=== PATIENT | male | born 1955 | race Caucasian/White ===

== ENCOUNTER 2017-10-05 13:06 | Emergency (ER) | payer BC, MEDICARE ==
[~2017-10-05] VITALS: Ht 180.3 cm; Wt 96.2 kg
[~2017-10-05 13:06] MED LIST: ACHD5005 PO; ALPR1TAB2 PO; ASP81CT PO; CEPH500C PO; MPR22T TP; NEBI20TA2 PO; NFNEB10T PO; NTR.4SL SL; OLME1TAB30 PO; SULF1TAB38 PO; TELM1TAB3 PO; TELM40T PO
[2017-10-05 13:28] LABS: BASOPHILS # (AUTO) 0.1 10^3/uL (0.0-0.1); BASOPHILS % (AUTO) 1 % (0-10); EOSINOPHILS # (AUTO) 0.1 10^3/uL (0.0-0.3); EOSINOPHILS % (AUTO) 1 % (0-10); LYMPHOCYTES # (AUTO) 1.3 X 10^3 (1.0-4.0); LYMPHOCYTES % (AUTO) 13 % (12-44); MEAN CORPUSCULAR HEMOGLOBIN 30 PG (25-34); MEAN CORPUSCULAR HGB CONC 34 G/DL (32-36); MEAN CORPUSCULAR VOLUME 87 FL (80-99); MEAN PLATELET VOLUME 11.4 FL (7.4-10.4); MONOCYTES # (AUTO) 0.9 X 10^3 (0.0-1.0); MONOCYTES % (AUTO) 10 % (0-12); NEUTROPHILS # (AUTO) 7.5 X 10^3 (1.8-7.8); NEUTROPHILS % (AUTO) 76 % (42-75); PLATELET COUNT 175 10^3/uL (130-400); RED CELL DISTRIBUTION WIDTH 14.9 % (10.0-14.5); WHITE BLOOD COUNT 9.8 10^3/uL (4.3-11.0)
[2017-10-05 13:39] LABS: INR 1.1 (0.8-1.4); PROTHROMBIN TIME PATIENT 14.5 SEC (12.2-14.7)
[2017-10-05 13:47] LABS: ALANINE AMINOTRANSFERASE 23 U/L (0-55); ALBUMIN 3.9 GM/DL (3.2-4.5); ANION GAP 12 MMOL/L (5-14); ASPARTATE AMINO TRANSFERASE 17 U/L (5-34); BILIRUBIN,TOTAL 1.3 MG/DL (0.1-1.0); BLOOD UREA NITROGEN 17 MG/DL (7-18); BUN/CREATININE RATIO 16; CARBON DIOXIDE 20 MMOL/L (21-32); CHLORIDE 111 MMOL/L (98-107); CREATININE SERUM 1.09 MG/DL (0.60-1.30); GFR ESTIMATED > 60; GLUCOSE 121 MG/DL (70-105); MAGNESIUM 2.2 MG/DL (1.8-2.4); POTASSIUM 4.2 MMOL/L (3.6-5.0); SODIUM 143 MMOL/L (135-145); TOTAL PROTEIN 6.9 GM/DL (6.4-8.2)
--- NOTE | 2017-10-05 14:14 | Diagnostic Imaging Report ---
PA and lateral views of the chest. INDICATION: Shortness of breath. FINDINGS: There is iqqswwlh-dy-jkhdlz cardiomegaly. There is minimal pulmonary vascular congestion. There is right infrahilar mild consolidation seen as well. No effusion or pneumothorax. The mediastinum and becky appear unremarkable. IMPRESSION: Marked cardiomegaly with pulmonary vascular congestion. There is also mild right infrahilar infiltrate. Dictated by: Dictated on workstation # [id number]
[2017-10-05] MEDS ORDERED: FURO-125 PO (14:58)
[2017-10-05] MEDS ORDERED: RT-ALBUINH IH (14:58)
[2017-10-05] MEDS ORDERED: POTA10TA10 PO (14:58)
[2017-10-05] MEDS ORDERED: AZIT250T12 PO (14:58)
--- NOTE | 2017-10-05 14:58 | ED General ---
General Chief Complaint: Respiratory Problems Stated Complaint: CHEST PAIN Nursing Triage Note: PT HERE FROM [facility], [facility] [place] FOR ABOUT 3 DAYS, STATES CANNOT GET AIR AT NIGHT. DENIES C/P Nursing Sepsis Screen: No Definite Risk Source of Information: Patient Exam Limitations: No Limitations History of Present Illness Time Seen by Provider: 13:10 Initial Comments This 61-year-old gentleman presents to the emergency room with complaints of orthopnea for the past 3 days. Sleep is very much disrupted because of orthopnea. He also has had some lower extremity edema. He denies any chest pain, cough or fever. He does have a history of nonischemic cardiomyopathy. He had nonobstructive coronary arteries on a heart catheter in 2013. He has not been taking his beta fredy medication and he does not follow with a crew lead. Dr. Alejandro is his primary care provider. Patient denies any alcohol or tobacco use. Patient was seen at the urgent care clinic earlier today and was referred to the emergency room because of EKG changes. Allergies and Home Medications Allergies Coded Allergies: Penicillins (Verified Allergy, 05/01/13) Home Medications Albuterol Sulfate 1 Puff Puff, 1-4 PUFF IH Q4H PRN for WHEEZING, #1 1 PUFF = 90 MCG Prescribed by: FORTINO REVELES on 10/05/17 1458 Alprazolam 1 Mg Tablet, 1 MG PO HS, (Reported) Azithromycin 250 Mg Tablet, 250 MG PO UD, #6 TAKE 2 TABLETS ON DAY ONE THEN TAKE 1 TABLET DAILY FOR FOUR MORE DAYS Prescribed by: FORTINO REVELES on 10/05/17 1458 Furosemide 20 Mg Tablet, 20 MG PO DAILY, #7 Prescribed by: FORTINO REVELES on 10/05/17 1458 Olmesartan Med/Amlodipine/Hctz 1 Each Tablet, 1 EACH PO DAILY, (Reported) Potassium Chloride 10 Meq Tablet.er, 10 MEQ PO DAILY, #7 Take only if taking Lasix (furosemide) Prescribed by: FORTINO REVELES on 10/05/17 1458 Constitutional: no symptoms reported EENTM: no symptoms reported Respiratory: see HPI Cardiovascular: see HPI Gastrointestinal: no symptoms reported Genitourinary: no symptoms reported Musculoskeletal: no symptoms reported Skin: no symptoms reported Psychiatric/Neurological: No Symptoms Reported Hematologic/Lymphatic: No Symptoms Reported Past Pqcfolw-Mivxpg-Efxvbs Hx Patient Social History Alcohol Use: Past History Recreational Drug Use: No Smoking Status: Never a Smoker Type Used: Smokeless Tobacco Recent Foreign Travel: No Contact w/Someone Who Travel: No Recent Infectious Disease Expo: No Recent Hopitalizations: No Physical Abuse: No Sexual Abuse: No Immunizations Up To Date Tetanus Booster (TDap): Unknown Seasonal Allergies Seasonal Allergies: No Surgeries History of Surgeries: Yes (COLONOSCOPY, CARDIAC CATH 12/2013) Surgeries: Abdominal, Cardiac Respiratory History of Respiratory Disorde: No Cardiovascular History of Cardiac Disorders: Yes (EXTREME NON-COMPLIANCE WITH MEDICATION) Cardiac Disorders: Cardiomyopathy (nonischemic cardiomyopathy), Hypertension Neurological History of Neurological Disord: No Reproductive System Hx Reproductive Disorders: No Sexually Transmitted Disease: No Gastrointestinal History of Gastrointestinal Di: Yes (DIVERTICULAR DISEASE FOUND ON SCREENING COLONOSCOPY) Gastrointestinal Disorders: Diverticulosis Musculoskeletal History of Musculoskeletal Dis: No Endocrine History of Endocrine Disorders: No Cancer History of Cancer: No Psychosocial History of Psychiatric Problem: No Suicide Risk Score: 0 Integumentary History of Skin or Integumenta: No Blood Transfusions History of Blood Disorders: No Physical Exam Vital Signs Vital Sign - Last 12Hours 10/05/17 13:10 Temp 97.2 Pulse 86 Resp 13 B/P (MAP) 152/108 Pulse Ox 96 Capillary Refill : Less Than 3 Seconds General Appearance: No Apparent Distress, WD/WN HEENT: PERRL/EOMI, Normal ENT Inspection Neck: Normal Inspection, No JVD Respiratory: Lungs Clear, Normal Breath Sounds, No Accessory Muscle Use, No Respiratory Distress Cardiovascular: Regular Rate, Rhythm, No Murmur, Other (mild lower extremity edema) Gastrointestinal: Normal Bowel Sounds, Non Tender, Soft Extremity: Non Tender, Swelling Neurologic/Psychiatric: Alert, Oriented x3, No Motor/Sensory Deficits, Normal Mood/Affect, computer aided design drafter II-XII Norm as Tested Skin: Normal Color, Warm/Dry Progress/Results/Core Measures Suspected Sepsis Recent Fever Within 48 Hours: No Infection Criteria Present: None New/Unexplained Altered Menta: No Sepsis Screen: No Definite Risk Sepsis Diagnosis: SIRS Temperature:97.2 Pulse: 86 Respiratory Rate: 13 Laboratory Tests 10/05/17 13:15: White Blood Count 9.8 Blood Pressure 152 /108 Mean: 123 Laboratory Tests 10/05/17 13:15: Creatinine 1.09, INR Comment 1.1, Platelet Count 175, Total Bilirubin 1.3H Results/Orders Lab Results Laboratory Tests Test 10/05/17 13:15 Range/Units White Blood Count 9.8 4.3-11.0 10^3/uL Red Blood Count 5.10 4.35-5.85 10^6/uL Hemoglobin 15.1 13.3-17.7 G/DL Hematocrit 44 40-54 % Mean Corpuscular Volume 87 80-99 FL Mean Corpuscular Hemoglobin 30 25-34 PG Mean Corpuscular Hemoglobin Concent 34 32-36 G/DL Red Cell Distribution Width 14.9 H 10.0-14.5 % Platelet Count 175 130-400 10^3/uL Mean Platelet Volume 11.4 H 7.4-10.4 FL Neutrophils (%) (Auto) 76 H 42-75 % Lymphocytes (%) (Auto) 13 12-44 % Monocytes (%) (Auto) 10 0-12 % Eosinophils (%) (Auto) 1 0-10 % Basophils (%) (Auto) 1 0-10 % Neutrophils # (Auto) 7.5 1.8-7.8 X 10^3 Lymphocytes # (Auto) 1.3 1.0-4.0 X 10^3 Monocytes # (Auto) 0.9 0.0-1.0 X 10^3 Eosinophils # (Auto) 0.1 0.0-0.3 10^3/uL Basophils # (Auto) 0.1 0.0-0.1 10^3/uL Prothrombin Time 14.5 12.2-14.7 SEC INR Comment 1.1 0.8-1.4 Activated Partial Thromboplast Time 30 24-35 SEC Sodium Level 143 135-145 MMOL/L Potassium Level 4.2 3.6-5.0 MMOL/L Chloride Level 111 H 98-107 MMOL/L Carbon Dioxide Level 20 L 21-32 MMOL/L Anion Gap 12 5-14 MMOL/L Blood Urea Nitrogen 17 7-18 MG/DL Creatinine 1.09 0.60-1.30 MG/DL Estimat Glomerular Filtration Rate > 60 BUN/Creatinine Ratio 16 Glucose Level 121 H 70-105 MG/DL Calcium Level 9.0 8.5-10.1 MG/DL Magnesium Level 2.2 1.8-2.4 MG/DL Total Bilirubin 1.3 H 0.1-1.0 MG/DL Aspartate Amino Transf (AST/SGOT) 17 5-34 U/L Alanine Aminotransferase (ALT/SGPT) 23 0-55 U/L Alkaline Phosphatase 95 40-136 U/L Myoglobin 57.0 10.0-92.0 NG/ML Troponin I < 0.30 <0.30 NG/ML B-Type Natriuretic Peptide 1961.8 H <100.0 PG/ML Total Protein 6.9 6.4-8.2 GM/DL Albumin 3.9 3.2-4.5 GM/DL My Orders Orders - FORTINO KRAFT MD Cbc With Automated Diff (10/05/17 13:19) Magnesium (10/05/17 13:19) Ekg Tracing (10/05/17 13:19) Cardiac Profile 1 (10/05/17 13:19) Comprehensive Metabolic Panel (10/05/17 13:19) Myoglobin Serum (10/05/17 13:19) Protime With Inr (10/05/17 13:19) Partial Thromboplastin Time (10/05/17 13:19) O2 (10/05/17 13:19) Monitor-Rhythm Ecg Trace Only (10/05/17 13:19) Saline Lock/Iv-Start (10/05/17 13:19) BNP (10/05/17 13:19) Chest Pa/Lat (2 View) (10/05/17 13:19) Furosemide Injection (Lasix Injection) (10/05/17 15:00) Potassium Chloride (Tablet) (Klor Con Ta (10/05/17 15:00) Medications Given in ED Current Medications Medications Dose Ordered Sig/Aman Route Start Time Stop Time Status Last Admin Dose Admin Furosemide 20 mg ONCE ONCE IVP 10/05/17 15:00 10/05/17 15:01 DC 10/05/17 15:11 20 MG Potassium Chloride 20 meq ONCE ONCE PO 10/05/17 15:00 10/05/17 15:01 DC 10/05/17 15:11 20 MEQ Vital Signs/I&O Vital Sign - Last 12Hours 10/05/17 10/05/17 13:10 15:12 Temp 97.2 Pulse 86 86 Resp 13 13 B/P (MAP) 152/108 Pulse Ox 96 96 Capillary Refill : Less Than 3 Seconds Blood Pressure Mean: 123 Progress Note : Progress Note Patient was found to have cardiomegaly and pulmonary venous congestion on x- ray. This correlated well with his elevated BNP. Patient is probably having some acute congestive failure due to his cardiomyopathy. There was also suspicion of a right sided perihilar pneumonia. Case was reviewed with Dr. Alejandro who agrees outpatient therapy is appropriate for this patient. Patient will receive prescriptions for Lasix, potassium, azithromycin. He received 20 mg of IV Lasix in the ER along with 20 mEq of potassium. Patient also complained of wheezing at night. For this reason an inhaler was also prescribed. ECG Initial ECG Impression Date: Oct 05, 2017 Initial ECG Impression Time: 13:08 Initial ECG Rate: 86 Initial ECG Rhythm: Normal Sinus Comment Sinus rhythm with no ST elevation or depression. LVH noted. No significant changes from prior. Diagnostic Imaging Diagonstic Imaging: Xray Plain Films/CT/US/NM/MRI: chest Comments Chest x-ray viewed by me and report reviewed. See report below: NAME: ROXI HARDEN [facility] REC#: [id number] PT STATUS: REG ER : 1955 PHYSICIAN: FORTINO KRAFT MD ADMIT DATE: 10/05/17/ER Draft Date of Exam:10/05/17 CHEST PA/LAT (2 VIEW) PA and lateral views of the chest. INDICATION: Shortness of breath. FINDINGS: There is rvhfkbnb-tj-bedbrj cardiomegaly. There is minimal pulmonary vascular congestion. There is right infrahilar mild consolidation seen as well. No effusion or pneumothorax. The mediastinum and becky appear unremarkable. IMPRESSION: Marked cardiomegaly with pulmonary vascular congestion. There is also mild right infrahilar infiltrate. Dictated on workstation # [id number] Dict: 10/05/17 1407 Trans: 10/05/17 1414 [id number] Interpreted by: GERONIMO SHERIFF MD Electronically signed by: Departure Impression Impression: Primary Impression: Congestive heart failure Qualified Codes: I50.9 - Heart failure, unspecified Additional Impressions: Right lower lobe pneumonia Qualified Codes: J18.1 - Lobar pneumonia, unspecified organism Orthopnea Wheezing Disposition: HOME, SELF-CARE Condition: Improved Departure-Patient Inst. Referrals: REJI ALEJANDRO MD (PCP/Family) Primary Care Physician Patient Instructions: CHF, Community-Acquired Pneumonia, Adult (DC) Add. Discharge Instructions: Complete your antibiotics as prescribed. Start Lasix (furosemide) as prescribed to encourage diuresis of extra fluid. Always take a potassium pill with your Lasix. Take Lasix in the morning to avoid frequent trips to the restroom at night. Call Dr. Alejandro's office today to schedule follow-up appointment. Please see him as soon as possible. It is very important that you return to the emergency room if your symptoms worsen. All discharge instructions reviewed with patient and/or family. Voiced understanding. Scripts Albuterol Sulfate (PROAIR HFA) 1 Puff Puff 1-4 PUFF IH Q4H Y for WHEEZING, #1 PUFF 1 PUFF = 90 MCG Prov: FORTINO KRAFT MD 10/05/17 Potassium Chloride (Potassium Chloride) 10 Meq Tablet.er 10 MEQ PO DAILY, #7 TAB Take only if taking Lasix (furosemide) Prov: FORTINO KRAFT MD 10/05/17 Furosemide (Lasix) 20 Mg Tablet 20 MG PO DAILY, #7 TAB Prov: FORTINO KRAFT MD 10/05/17 Azithromycin (Azithromycin) 250 Mg Tablet 250 MG PO UD, #6 TAB TAKE 2 TABLETS ON DAY ONE THEN TAKE 1 TABLET DAILY FOR FOUR MORE DAYS Prov: FORTINO KRAFT MD 10/05/17 Copy Copies To 1: REJI ALEJANDRO MD, JOSHUA T MD Oct 05, 2017 14:58
[2017-10-05] MEDS ORDERED: FUROSEMIDE 40 MG/4 ML INJ (LASIX) IVP ONE (15:00)
[2017-10-05] MEDS ORDERED: KCL 10 MEQ TAB (MICRO K) PO ONE (15:00)
[2017-10-05 15:12] VITALS: BP 140/96
== END 2017-10-05 15:11 | disposition home or self-care (01) ==
LOC: EDUNIT# 13:06 → ER 13:08
DX: I11.0 Hypertensive heart disease with heart failure (principal); I50.9 Heart failure, unspecified; J18.1 Lobar pneumonia, unspecified organism; I42.9 Cardiomyopathy, unspecified; Z87.19 Personal history of other diseases of the digestive system; Z91.14 Patient's other noncompliance with medication regimen
CPT/HCPCS: 36415; 71020; 80053; 83735; 83874; 83880; 84484; 85025; 85610; 85730; 93005; 93041; 96374

== ENCOUNTER → 2018-01-05 | Outpatient (CLI) | payer OTHER ==
[~2018-01-05] MED LIST changes: +AZIT250T12 PO; +FURO-125 PO; +POTA10TA10 PO; +RT-ALBUINH IH
== END ==
LOC: CARD 11:53
PROVIDERS: ATTEND Internal Medicine
DX: I50.9 Heart failure, unspecified (principal); I34.0 Nonrheumatic mitral (valve) insufficiency
CPT/HCPCS: 93306

== ENCOUNTER 2018-09-27 09:49 | Inpatient (IN) | payer OTHER ==
[2018-09-27] VITALS (17 sets, daily range): BP systolic 81–130; BP diastolic 58–96
[~2018-09-27] VITALS: Ht 182.9 cm; Wt 95.5 kg
[~2018-09-27 09:49] MED LIST changes: +ALLO100T PO; +ALPR1TAB7 PO; +AMLO10TA6 PO; +CRAN450C PO; +FURO40TA4 PO; +LISI40TA PO; +OMEG-9 PO; +POTA10TA6 PO
[2018-09-27] MEDS ORDERED: LORazepam INJ 2 MG/ML (ATIVAN) VIAL ONE (09:52)
[2018-09-27] MEDS ORDERED: RT-ALBUTEROL/IPRATROPIUM 3 ML (DUONEB) VIAL ONE ×3 (10:02→13:24)
[2018-09-27] MEDS ORDERED: ETOMIDATE IV SOLN 20 MG/10 ML VIAL IV ONE (10:04)
[2018-09-27] MEDS ORDERED: MIDAZOLAM 5 MG/5 ML (VERSED) VIAL INJ ONE (10:04)
[2018-09-27] MEDS ORDERED: SUCCINYLCHOLINE INJ 100 MG/5 ML SYR INJ ONE (10:04)
[2018-09-27] MEDS ORDERED: ROCURONIUM 10 MG/ML 5 ML SYRINGE IV ONE (10:04)
[2018-09-27] MEDS ORDERED: FUROSEMIDE 40 MG/4 ML INJ (LASIX) ONE (10:07)
[2018-09-27] MEDS ORDERED: methylPREDNISolone 125 MG (Solu-MEDROL) VIAL ONE (10:07)
[2018-09-27] MEDS ORDERED: PROPOFOL DRIP (ICU) 100 ML IV ONE ×4 (10:12→23:43)
[2018-09-27] MEDS ORDERED: DILTIAZEM 25 MG/5 ML INJ (CARDIZEM) VIAL ONE (10:17)
[2018-09-27] MEDS ORDERED: NS IV 1000 ML 1,000 ML IV STA (10:18)
[2018-09-27] MEDS ORDERED: DILTIAZEM 125 MG/NS 100 ML IV ONE ×2 (10:30)
[2018-09-27 10:33] LABS: ABG BASE EXCESS -0.7 MMOL/L (-2.5-2.5); ABG OXYGEN SATURATION 96 % (94-100); ABG PO2 101 MMHG (79-93); ABG TCO2 30.1 MMOL/L (21.0-31.0)
--- NOTE | 2018-09-27 10:33 | Diagnostic Imaging Report ---
INDICATION: ET tube placement A frontal chest obtained at 1018 AM and is compared to 08/27/2018. There is prominent cardiomegaly. There is extensive new right perihilar and basilar infiltrate with milder left basilar infiltrate. There is central vascular congestion with some interstitial edema and Angela B-lines. There is no pneumothorax or pleural fluid. There is a new ET tube in place with tip overlying mid trachea. There is an NG tube seen with tip overlying mid stomach. IMPRESSION: Cardiomegaly with central vascular congestion with some Angela B lines compatible with edema. There is alveolar infiltrate in the right perihilar region and base as well as in the left base, as above. The ET tube and NG tube appear to be in good position. Dictated by: Dictated on workstation # [id number]
[2018-09-27 10:35] LABS: BILIRUBIN,URINE NEGATIVE (NEGATIVE); CLARITY,URINE CLEAR; COLOR,URINE AMBER; GLUCOSE, URINE (UA) NEGATIVE (NEGATIVE); KETONES,URINE NEGATIVE (NEGATIVE); LEUKOCYTE ESTERASE ,URINE NEGATIVE (NEGATIVE); NITRITE,URINE NEGATIVE (NEGATIVE); PH,URINE 5 (5-9); PROTEIN,URINE 3+ (NEGATIVE); UROBILINOGEN,URINE 1 MG/DL (NORMAL)
[2018-09-27 10:37] LABS: BASOPHILS # (AUTO) 0.1 10^3/uL (0.0-0.1); BASOPHILS % (AUTO) 0 % (0-10); EOSINOPHILS # (AUTO) 0.2 10^3/uL (0.0-0.3); EOSINOPHILS % (AUTO) 2 % (0-10); HEMATOCRIT 48 % (40-54); HEMOGLOBIN 15.7 G/DL (13.3-17.7); LYMPHOCYTES # (AUTO) 2.1 X 10^3 (1.0-4.0); LYMPHOCYTES % (AUTO) 13 % (12-44); MEAN CORPUSCULAR HEMOGLOBIN 30 PG (25-34); MEAN CORPUSCULAR HGB CONC 32 G/DL (32-36); MEAN CORPUSCULAR VOLUME 93 FL (80-99); MEAN PLATELET VOLUME 11.9 FL (7.4-10.4); MONOCYTES # (AUTO) 1.4 X 10^3 (0.0-1.0); MONOCYTES % (AUTO) 9 % (0-12); NEUTROPHILS # (AUTO) 12.3 X 10^3 (1.8-7.8); NEUTROPHILS % (AUTO) 76 % (42-75); PLATELET COUNT 204 10^3/uL (130-400); RED BLOOD COUNT 5.22 10^6/uL (4.35-5.85); RED CELL DISTRIBUTION WIDTH 15.6 % (10.0-14.5); WHITE BLOOD COUNT 16.2 10^3/uL (4.3-11.0)
[2018-09-27 10:40] LABS: ABG PCO2 89 MMHG (35-45); ABG PH 7.13 (7.37-7.43)
[2018-09-27 10:41] LABS: ALLENS TEST YES-POS; INSPIRED O2 100%; VENTILATOR YES
--- NOTE | 2018-09-27 10:43 | ED Respiratory ---
General Stated Complaint: SOA,CHF Source: patient, RN/MD, EMS Exam Limitations: clinical condition History of Present Illness Date Seen by Provider: Sep 27, 2018 Time Seen by Provider: 09:50 Initial Comments Here by EMS in extremis with respiratory distress. Apparently went to his doctor's office today and was very short of breath. Initial O2 sat per his primary care doctor, Dr. Alejandro, was 60 percent. This did improve with high flow O2 to 90 percent. EMS was called. Patient does have history of atrial fibrillation with rapid ventricular response and heart failure with an EF 20 percent. Patient was unable to provide any significant history. Arise he EMS on high flow O2 after not tolerating the CPAP for very long. States that he is very short of breath and very anxious. Otherwise unable to answer review of system questions. reports that he's had increasing shortness of breath over the last several days and over the last few weeks. He is apparently been seen here and admitted here recently but left AMA. Patient was not very fond of going to his doctor due to anxiety. Timing/Duration: week, getting worse Severity: severe Prior Episodes/Possible Cause: frequent episodes Modifying Factors: Worse With Activity Associated Symptoms: cough, fever/chills, shortness of breath, wheezing Allergies and Home Medications Allergies Coded Allergies: Penicillins (Verified Allergy, Unknown, 08/26/18) Home Medications Allopurinol 100 Mg Tablet, 200 MG PO HS, (Reported) TAKES 2 (100MG) TABLETS Alprazolam 1 Mg Tablet, 1 MG PO TID PRN for ANXIETY, (Reported) Amlodipine Besylate 10 Mg Tablet, 10 MG PO DAILY, (Reported) Cranberry Fruit Concentrate 450 Mg Capsule, 450 MG PO DAILY, (Reported) Furosemide 40 Mg Tablet, 40 MG PO DAILY, (Reported) Lisinopril 40 Mg Tablet, 40 MG PO DAILY, (Reported) [place]-3/Dha/Epa/Fish Oil 1 Each Capsule.dr, 1,400 MG PO DAILY, (Reported) Potassium Chloride 10 Meq Tablet.er, 10 MEQ PO DAILY, (Reported) Patient Home Medication List Home Medication List Reviewed: Yes Review of Systems Review of Systems Constitutional: see HPI; No chills; fever Respiratory: see HPI, short of breath, wheezing Cardiovascular: see HPI; No chest pain; edema Unable to complete review of systems due to respiratory distress and extremities Past Zhispin-Pazexg-Cmluba Hx Past Med/Social Hx: Reviewed Nursing Past Med/Soc Hx Patient Social History Alcohol Use: Denies Use Recreational Drug Use: No Type Used: Smokeless Tobacco Recent Hopitalizations: No Immunizations Up To Date Tetanus Booster (TDap): Unknown Seasonal Allergies Seasonal Allergies: No Past Medical History Surgeries: Yes (COLONOSCOPY, CARDIAC CATH 12/2013) Abdominal, Cardiac Respiratory: No Cardiac: Yes (EXTREME NON-COMPLIANCE WITH MEDICATION) Cardiomyopathy, Hypertension Neurological: No Reproductive Disorders: No Sexually Transmitted Disease: No Genitourinary: No Gastrointestinal: Yes (DIVERTICULAR DISEASE FOUND ON SCREENING COLONOSCOPY) Diverticulosis Musculoskeletal: No Endocrine: No Cancer: No Psychosocial: No Anxiety Integumentary: No Blood Disorders: No Family Medical History Reviewed Nursing Family Hx No Pertinent Family Hx Physical Exam Vital Signs - First Documented 09/27/18 10:40 Pulse 95 Resp 18 Pulse Ox 92 FiO2 100 Capillary Refill : Height: 5'11.00" Weight: 215lbs. 9.0oz. 97.907168mi; 30.0 BMI Method:Stated General Appearance: WD/WN, severe distress HEENT: PERRL/EOMI, pharynx normal Neck: full range of motion, supple Respiratory: decreased breath sounds, accessory muscle use, wheezing, expiration Cardiovascular: no murmur, tachycardia, irregularly irregular Gastrointestinal: non tender, soft Extremities: non-tender, normal inspection, pedal edema (1+ bilateral) Neurologic/Psychiatric: alert, other (significant anxiety) Skin: normal color, warm/dry Focused Exam Lactate Level 09/27/18 11:30: Lactic Acid Level Laboratory Tests Test 09/27/18 11:30 Procedures/Interventions Lumen: triple Central Line Procedure: betadine prep, sterile drapes applied, sterile dressing applied Position: internal jugular (R) Anesthesia: local Volume Anesthetic (ccs): 3 Complications: none Post Position: sutured Placed by Rolf Reed APRN via ultrasound guidance times one stick. Post line placement x-ray shows line in good position without pneumothorax. Date of ETT Placement: Sep 27, 2018 Time of ETT Placement: 10:07 Intubation Method: orotracheal Tube Size: 8.5 Medications: Etomidate, Succinylcholine, Versed Positive End Tide CO2: Yes Breath Sounds after Intubation: bilateral-equal Intubation Complications: no complications Post Intubation Xray: Yes ET tube in good position Intubated emergently due to respiratory failure. Intubated via video scope with no complications. O2 sats improved afterwards. Bilateral breath sounds equal with no epigastric sounds and positive end-tidal CO2. Progress/Results/Core Measures Suspected Sepsis SIRS Temperature: Pulse: Respiratory Rate: Laboratory Tests 09/27/18 10:15: White Blood Count 16.2H Blood Pressure / Mean: 09/27/18 11:30: Laboratory Tests 09/27/18 10:15: Platelet Count 204 09/27/18 11:30: Results/Orders Lab Results Laboratory Tests Test 09/27/18 10:01 09/27/18 10:13 09/27/18 10:15 09/27/18 11:30 Range/Units Blood Gas Puncture Site RT RAD Blood Gas Patient Temperature 100.0 Arterial Blood pH 7.13 *L 7.37-7.43 Arterial Blood Partial Pressure CO2 89 *H 35-45 MMHG Arterial Blood Partial Pressure O2 101 H 79-93 MMHG Arterial Blood HCO3 28 H 23-27 MMOL/L Arterial Blood Total CO2 30.1 21.0-31.0 MMOL/L Arterial Blood Oxygen Saturation 96 94-100 % Arterial Blood Base Excess -0.7 -2.5-2.5 MMOL/L Michael Test YES-POS Blood Gas Ventilator Setting YES Blood Gas Inspired Oxygen 100% Urine Color TAJ H Urine Clarity CLEAR Urine pH 5 5-9 Urine Specific [place] 1.020 1.016-1.022 Urine Protein 3+ H NEGATIVE Urine Glucose (UA) NEGATIVE NEGATIVE Urine Ketones NEGATIVE NEGATIVE Urine Nitrite NEGATIVE NEGATIVE Urine Bilirubin NEGATIVE NEGATIVE Urine Urobilinogen 1 NORMAL MG/DL Urine Leukocyte Esterase NEGATIVE NEGATIVE Urine RBC (Auto) 2+ H NEGATIVE Urine RBC 5-10 H /HPF Urine WBC 0-2 /HPF Urine Crystals NONE /LPF Urine Bacteria TRACE /HPF Urine Casts PRESENT /LPF Urine Hyaline Casts >50 H /LPF Urine Mucus SMALL H /LPF Urine Culture Indicated NO White Blood Count 16.2 H 4.3-11.0 10^3/uL Red Blood Count 5.22 4.35-5.85 10^6/uL Hemoglobin 15.7 13.3-17.7 G/DL Hematocrit 48 40-54 % Mean Corpuscular Volume 93 80-99 FL Mean Corpuscular Hemoglobin 30 25-34 PG Mean Corpuscular Hemoglobin Concent 32 32-36 G/DL Red Cell Distribution Width 15.6 H 10.0-14.5 % Platelet Count 204 130-400 10^3/uL Mean Platelet Volume 11.9 H 7.4-10.4 FL Neutrophils (%) (Auto) 76 H 42-75 % Lymphocytes (%) (Auto) 13 12-44 % Monocytes (%) (Auto) 9 0-12 % Eosinophils (%) (Auto) 2 0-10 % Basophils (%) (Auto) 0 0-10 % Neutrophils # (Auto) 12.3 H 1.8-7.8 X 10^3 Lymphocytes # (Auto) 2.1 1.0-4.0 X 10^3 Monocytes # (Auto) 1.4 H 0.0-1.0 X 10^3 Eosinophils # (Auto) 0.2 0.0-0.3 10^3/uL Basophils # (Auto) 0.1 0.0-0.1 10^3/uL Neutrophils % (Manual) 78 % Lymphocytes % (Manual) 11 % Monocytes % (Manual) 7 % Eosinophils % (Manual) 2 % Basophils % (Manual) 1 % Band Neutrophils 1 % Anisocytosis SLIGHT My Orders Orders - HAYLEE LOYA MD Chest 1 View, Ap/Pa Only (09/27/18 10:09) Furosemide Injection (Lasix Injection) (09/27/18 10:07) Methylprednisolone Sod Succ (Solu-Medrol (09/27/18 10:07) Propofol Drip (Icu) (Diprivan Drip (Icu) (09/27/18 10:12) Cbc With Automated Diff (09/27/18 10:18) Comprehensive Metabolic Panel (09/27/18 10:18) Blood Culture (09/27/18 10:18) Sputum Culture (09/27/18 10:18) Urinalysis (09/27/18 10:18) Urine Culture (09/27/18 10:18) Protime With Inr (09/27/18 10:18) Partial Thromboplastin Time (09/27/18 10:18) Saline Lock/Iv-Start (09/27/18 10:18) Ekg Tracing (09/27/18 10:18) Troponin I (09/27/18 10:18) Vital Signs Adult Sepsis Patie Q15M (09/27/18 10:18) O2 (09/27/18 10:18) Remove Rings In Anticipation O (09/27/18 10:18) Lactic Acid Analyzer (09/27/18 10:18) Influenza A And B Antigens (09/27/18 10:18) Ns Iv 1000 Ml (Sodium Chloride 0.9%) (09/27/18 10:18) Diltiazem Injection (Cardizem Injection) (09/27/18 10:17) Ns (Ivpb) (Sodium C... W/Diltiazem Injec (09/27/18 10:30) Arterial Blood Gas (09/27/18 10:26) Manual Differential (09/27/18 10:15) Albuterol/Ipra Inhalation Soln (Duoneb I (09/27/18 10:47) Svn Small Volume Nebulizer (09/27/18 10:46) Norepinephrine (Levophed) (09/27/18 10:44) D5w Iv Solution ([place]) (Dextrose 5% Edmund (09/27/18 10:44) Ns (Ivpb) (Sodium Chloride 0.9%) (09/27/18 10:45) Chest 1 View, Ap/Pa Only (09/27/18 11:07) Meropenem (Merrem 500 Mg) (09/27/18 11:30) Meropenem (Merrem 500 Mg) (09/27/18 11:23) Hydrocortisone Injection (Solu-Cortef In (09/27/18 11:45) Dopamine Drip (Dopamine Drip) (09/27/18 11:43) Medications Given in ED Current Medications Medications Dose Ordered Sig/Aman Route Start Time Stop Time Status Last Admin Dose Admin Albuterol/ Ipratropium 3 ml ONCE ONCE INH 09/27/18 10:47 09/27/18 10:48 DC 09/27/18 11:32 3 ML Vital Signs/I&O 09/27/18 10:40 Pulse 95 Resp 18 Pulse Ox 92 FiO2 100 Capillary Refill : Progress Note : Progress Note Seen and evaluated on arrival by EMS. Patient not tolerating CPAP by EMS. Patient placed on high flow oxygen. We did initiate Vapotherm in an effort to improve respiratory status. Patient very agitated. Ativan 1 mg IV given and repeated 1. This did not improve his anxiety. I did discuss with the patient the possibility of intubation and patient ultimately stated that he could not breathe any longer and he needed help including intubation if needed. 1007: Patient intubated by me via video scope with a 0.5 tube at 26 cm at the lip after 20 mg of etomidate and 200 mg of succinylcholine given. Successful intubation with improved oxygenation. Labs, EKG and chest x-ray ordered. Oliveros catheter and NG tube ordered. We will get blood cultures and lactic acid is patient was noted to have fever. Lasix 80 mg IV ordered. We will initiate propofol drip at 40 mcg/m. 1031: Rocuronium 50 mg IV given for agitation and overbreathing. Cardizem 20 mg IV and 20 mg bolus given. Then adjusted to rate of 16 with tidal volume of 500 and PEEP of 12 to get O2 sats in the upper 80s to low 90s. FiO2 100 percent. Chest x-ray showing significant physician and. 1039: I did discuss the case with Dr. Dudley and he agrees with current findings so far. Propofol drip continuing. We will consider Levophed. 1121: Levophed to be initiated. Meropenem 500 mg IV ordered as patient is allergic to penicillin so we will do that instead of Zosyn. 1032: I did discuss the case with the hospitalist, Dr. PADILLA. He accepts patient for admission. We will also get cardiology consult 1139: I did discuss the case with Dr. Dudley. He will review the labs and come to the ER and see the patient. We will initiate dopamine and stop Cardizem his heart rate is improved. Blood pressure continues to decline. There is concerns about heart failure in this patient and the requirement for high PEEP. Likely septic but high volume fluid resuscitation would be dangerous in this patient and fluids we'll be careful considered over time given patient's cardiac status and known EF of 20 percent. Patient also has findings concerning for ARDS which also complicates fluid administration. This will be done judiciously by Dr. Dudley as indicated. is at bedside and she was informed of the findings and concerns. 1150: To ICU with Dr. Dudley at bedside. ECG Initial ECG Impression Date: Sep 27, 2018 Initial ECG Impression Time: 10:16 Initial ECG Rate: 137 Initial ECG Rhythm: A Fib/Flutter Initial ECG Impression: Atrial Fibrillation w/RVR Comment Atrial fibrillation with rapid ventricular response. Normal axis. No evidence of ST elevation DC. Change from previous of 08/27/18. Interpreted by me. Diagnostic Imaging Diagonstic Imaging: Xray Plain Films/CT/US/NM/MRI: chest Comments NAME: ROXI HARDEN [facility] REC#: [id number] PT STATUS: REG ER : 1955 PHYSICIAN: HAYLEE LOYA MD ADMIT DATE: 09/27/18/ER Draft Date of Exam:09/27/18 CHEST 1 VIEW, AP/PA ONLY INDICATION: ET tube placement A frontal chest obtained at 1018 AM and is compared to 08/27/2018. There is prominent cardiomegaly. There is extensive new right perihilar and basilar infiltrate with milder left basilar infiltrate. There is central vascular congestion with some interstitial edema and Angela B-lines. There is no pneumothorax or pleural fluid. There is a new ET tube in place with tip overlying mid trachea. There is an NG tube seen with tip overlying mid stomach. IMPRESSION: Cardiomegaly with central vascular congestion with some Angela B lines compatible with edema. There is alveolar infiltrate in the right perihilar region and base as well as in the left base, as above. The ET tube and NG tube appear to be in good position. Dictated on workstation # [id number] Dict: 09/27/18 1024 Trans: 09/27/18 1032 [place] [id number] Interpreted by: LILA INIGUEZ MD Electronically signed by: Reviewed: Reviewed by Me Diagonstic Imaging: Xray Plain Films/CT/US/NM/MRI: chest Comments VIA [facility]. [place], [place] NAME: ROXI HARDEN [facility] REC#: [id number] PT STATUS: REG ER : 1955 PHYSICIAN: HAYLEE LOYA MD ADMIT DATE: 09/27/18/ER Draft Date of Exam:09/27/18 CHEST 1 VIEW, AP/PA ONLY INDICATION: Central line placement. FINDINGS: Right IJ catheter projects over the upper SVC with no pneumothorax. Enlargement of the cardiac silhouette unchanged and has worsened asymmetric greater right mixed interstitial and airspace disease suspicious for asymmetric pulmonary edema. Pneumonia could not be excluded. ET tube and OG catheter stable. IMPRESSION: Right IJ placed in the upper SVC. No pneumothorax. Likely increased asymmetric edema with unchanged enlargement of the cardiac silhouette. Dictated on workstation # [id number] Dict: 09/27/18 1127 Trans: 09/27/18 1136 [facility] [id number] Interpreted by: JAMIE BARRETT Electronically signed by: Reviewed: Reviewed by Me Critical Care Note Critical Care Start Time: 09:50 Stop Time: 11:50 Total Time (minutes) 60 Departure Communication (Admissions) Time/Spoke to Admitting Phy: 11:32 Time/Spoke to Consulting Phy: 11:21 Impression Primary Impression: Respiratory failure with hypercapnia Qualified Codes: J96.02 - Acute respiratory failure with hypercapnia Additional Impressions: Acute heart failure Qualified Codes: I50.21 - Acute systolic (congestive) heart failure Atrial fibrillation with rapid ventricular response Disposition: ADMITTED INPATIENT Condition: Critical Admissions Decision to Admit Reason: Admit from ER (General) Decision to Admit/Date: Sep 27, 2018 Time/Decision to Admit Time: 11:21 Departure-Patient Inst. Referrals: REJI ALEJANDRO MD (PCP/Family) Primary Care Physician HAYLEE LOYA MD Sep 27, 2018 10:43
[2018-09-27] MEDS ORDERED: D5W IV SOLUTION (EXCEL) 0 ML IV ONE (10:44)
[2018-09-27] MEDS ORDERED: NOREPINEPHRINE 4 MG/4 ML (LEVOPHED) AMP IV ONE (10:44)
[2018-09-27] MEDS ORDERED: NS (IVPB) 250 ML ONE (10:45)
[2018-09-27 10:46] LABS: BACTERIA,URINE TRACE /HPF; WBC,URINE 0-2 /HPF
[2018-09-27 10:47] LABS: HYALINE CASTS, URINE >50 /LPF
[2018-09-27] MEDS ORDERED: RT-ALBUTEROL/IPRATROPIUM 3 ML (DUONEB) VIAL INH ONE (10:47)
[2018-09-27 10:54] LABS: ANISOCYTOSIS SLIGHT; BAND NEUTROPHILS 1 %; BASOPHILS % (MANUAL) 1 %; EOSINOPHILS % (MANUAL) 2 %; LYMPHOCYTES % (MANUAL) 11 %; MONOCYTES % (MANUAL) 7 %; NEUTROPHILS % (MANUAL) 78 %
[2018-09-27] MEDS ORDERED: MEROPENEM 500 MG VIAL (MERREM) IV ONE (11:23)
[2018-09-27] MEDS ORDERED: MEROPENEM 500 MG in NS (IVPB) 100 ML IV ONE (11:30)
--- NOTE | 2018-09-27 11:37 | Diagnostic Imaging Report ---
INDICATION: Central line placement. FINDINGS: Right IJ catheter projects over the upper SVC with no pneumothorax. Enlargement of the cardiac silhouette unchanged and has worsened asymmetric greater right mixed interstitial and airspace disease suspicious for asymmetric pulmonary edema. Pneumonia could not be excluded. ET tube and OG catheter stable. IMPRESSION: Right IJ placed in the upper SVC. No pneumothorax. Likely increased asymmetric edema with unchanged enlargement of the cardiac silhouette. Dictated by: Dictated on workstation # [id number]
[2018-09-27] MEDS ORDERED: DOPamine DRIP 250 ML IV ONE (11:43)
[2018-09-27] MEDS ORDERED: HYDROCORTISONE 100 MG/2 ML (Solu-CORTEF) VIAL IV ONE (11:45)
[2018-09-27 11:53] LABS: INR 1.9 (0.8-1.4)
[2018-09-27 11:59] LABS: ALANINE AMINOTRANSFERASE 28 U/L (0-55); ALBUMIN 4.1 GM/DL (3.2-4.5); ALKALINE PHOSPHATASE 92 U/L (40-136); BILIRUBIN,TOTAL 2.2 MG/DL (0.1-1.0); BUN/CREATININE RATIO 17; CALCIUM 9.2 MG/DL (8.5-10.1); CARBON DIOXIDE 26 MMOL/L (21-32); CHLORIDE 103 MMOL/L (98-107); GFR ESTIMATED 36; GLUCOSE 159 MG/DL (70-105); POTASSIUM 5.5 MMOL/L (3.6-5.0); SODIUM 138 MMOL/L (135-145)
[2018-09-27] MEDS ORDERED: NS (IVPB) 50 ML ONE (12:01)
--- OUTSIDE RECORDS SUMMARY | 2018-09-27 12:13 | XMS REPORT | Continuity of Care Document ---
Author Author [facility] Organization [facility] Address Unknown Phone Unavailable Allergies Active Description Code Type Severity Reaction Onset Reported/Identified Relationship to Patient Clinical Status Yes Penicillins [id number] Drug Allergy Unknown N/A 08/26/2018 Medications There is no data. Problems Date Dx Coded Attending Type Code Diagnosis Diagnosed By 05/01/2013 DEWEY RAMSEY Ot 883.0 OPEN WOUND OF FINGER 05/01/2013 DEWEY RAMSEY Ot E000.8 OTHER EXTERNAL CAUSE STATUS 05/01/2013 DEWEY RAMSEY Ot E849.0 ACCIDENT IN HOME 05/01/2013 DEWEY RAMSEY Ot E920.8 ACC-CUTTING INSTRUM NEC 05/01/2013 DEWEY RAMSEY Ot V06.1 [id number], COMBINED [ 05/17/2013 MICHAEL VICTOR DO Ot 136.9 INFECT/PARASITE DIS NOS 05/17/2013 MICHAEL VICTOR DO Ot 998.32 DISRUPTION OF EXTERNAL OPERATION (SURGIC 05/17/2013 MICHAEL VICTOR DO Ot E929.9 LATE EFF ACCIDENT NOS 05/17/2013 MICHAEL VICTOR DO Ot V15.81 HX OF PAST NONCOMPLIANCE 05/17/2013 MICHAEL VICTOR DO Ot V58.32 ENCOUNTER FOR REMOVAL OF SUTURES 01/02/2014 VIDYA VERDE MD, FACCP CCDS Ot 305.1 TOBACCO USE DISORDER 01/02/2014 VIDYA VERDE MD, FACCP CCDS Ot 401.9 HYPERTENSION NOS 01/02/2014 VIDYA VERDE MD, FACCP CCDS Ot 424.0 MITRAL VALVE DISORDER 01/02/2014 VIDYA VERDE MD, FACCP CCDS Ot 425.4 PRIM CARDIOMYOPATHY NEC 01/02/2014 VIDYA VERDE MD, FACCP CCDS Ot 786.59 CHEST PAIN NEC 01/02/2014 VIDYA VERDE MD, FACCP CCDS Ot V58.69 OTH MED,LT,CURRENT USE 09/11/2014 EDGARDO SCOTT, REJI Sr Ot 211.3 BENIGN NEOPLASM LG BOWEL 09/11/2014 EDGARDO SCOTT, REJI Sr Ot 562.10 DIVERTICULOSIS COLON (W/O MENT OF HEMORR 09/11/2014 EDGARDO SCOTT, REJI Sr Ot V76.51 SCREEN MAL NEOP-COLON 08/05/2015 EDGARDO SCOTT, REJI Sr Ot 401.9 08/05/2015 EDGARDO SCOTT, REJI Sr Ot 428.0 08/05/2015 REJI REYNOSO MD Ot 785.2 08/05/2015 REJI REYNOSO MD Ot 786.05 08/05/2015 REJI REYNOSO MD Ot V72.84 02/09/2016 REJI REYNOSO MD Ot 401.9 02/09/2016 REJI REYNOSO MD Ot 428.0 02/09/2016 ERJI REYNOSO MD Ot 785.2 02/09/2016 REJI REYNOSO MD Ot 786.05 02/09/2016 REJI REYNOSO MD Ot V72.84 02/09/2016 VALENTE DO, MICHAEL K Ot F41.9 ANXIETY DISORDER, UNSPECIFIED 02/09/2016 VALENTE DO, MICHAEL K Ot I10 ESSENTIAL (PRIMARY) HYPERTENSION 02/09/2016 VALENTE DO, MICHAEL K Ot R07.89 OTHER CHEST PAIN 02/09/2016 VALENTE DO, MICHAEL K Ot Z91.14 PATIENT'S OTHER NONCOMPLIANCE WITH MEDIC 02/11/2016 VALENTE DO, MICHAEL K Ot F41.9 02/11/2016 VALENTE DO, MICHAEL K Ot I10 02/11/2016 VALENTE DO, MICHAEL K Ot R07.89 02/11/2016 VALENTE DO, MICHAEL K Ot Z91.14 04/30/2016 EDGARDO SCOTT, REJI Sr Ot 401.9 HYPERTENSION NOS 04/30/2016 EDGARDO SCOTT, REJI Sr Ot 428.0 CONGESTIVE HEART FAILURE NOS 04/30/2016 REJI REYNOSO MD Ot 785.2 CARDIAC MURMURS NEC 04/30/2016 REJI REYNOSO MD Ot 786.05 SHORTNESS OF BREATH 04/30/2016 EDGARDO SCOTT, REJI Sr Ot V72.84 EXAM PRE-OPERATIVE NOS 10/07/2016 REJI REYNOSO MD Ot 401.9 HYPERTENSION NOS 10/07/2016 EDGARDO SCOTT, REJI Sr Ot 428.0 CONGESTIVE HEART FAILURE NOS 10/07/2016 EDGARDO SCOTT, REJI Sr Ot 785.2 CARDIAC MURMURS NEC 10/07/2016 EDGARDO SCOTT, REJI Sr Ot 786.05 SHORTNESS OF BREATH 10/07/2016 EDGARDO SCOTT, REJI Sr Ot V72.84 EXAM PRE-OPERATIVE NOS 10/07/2016 EDGARDO SCOTT, REJI Sr Ot 401.9 HYPERTENSION NOS 10/07/2016 EDGARDO SCOTT, REJI Sr Ot 428.0 CONGESTIVE HEART FAILURE NOS 10/07/2016 EDGARDO SCOTT, REJI Sr Ot 785.2 CARDIAC MURMURS NEC 10/07/2016 EDGARDO SCOTT, REJI Sr Ot 786.05 SHORTNESS OF BREATH 10/07/2016 EDGARDO SCOTT, REJI Sr Ot V72.84 EXAM PRE-OPERATIVE NOS 10/22/2016 EDGARDO SCOTT, REJI Sr Ot 401.9 HYPERTENSION NOS 10/22/2016 EDGARDO SCOTT, REJI Sr Ot 428.0 CONGESTIVE HEART FAILURE NOS 10/22/2016 EDGARDO SCOTT, REJI Sr Ot 785.2 CARDIAC MURMURS NEC 10/22/2016 EDGARDO SCOTT, REJI Sr Ot 786.05 SHORTNESS OF BREATH 10/22/2016 EDGARDO SCOTT, REJI Sr Ot V72.84 EXAM PRE-OPERATIVE NOS 10/05/2017 EDGARDO SCOTT, REJI Sr Ot 401.9 HYPERTENSION NOS 10/05/2017 EDGARDO SCOTT, REJI Sr Ot 428.0 CONGESTIVE HEART FAILURE NOS 10/05/2017 EDGARDO SCOTT, REJI Sr Ot 785.2 CARDIAC MURMURS NEC 10/05/2017 EDGARDO SCOTT, REJI Sr Ot 786.05 SHORTNESS OF BREATH 10/05/2017 EDGARDO SCOTT, REJI Sr Ot V72.84 EXAM PRE-OPERATIVE NOS 10/05/2017 ABENA SCOTT, FORTINO T Ot I11.0 HYPERTENSIVE HEART DISEASE WITH HEART FA 10/05/2017 ABENA SCOTT, FORTINO T Ot I42.9 CARDIOMYOPATHY, UNSPECIFIED 10/05/2017 ABENA SCOTT, FORTINO T Ot I50.9 HEART FAILURE, UNSPECIFIED 10/05/2017 ABENA SCOTT, FORTINO T Ot J18.1 LOBAR PNEUMONIA, UNSPECIFIED ORGANISM 10/05/2017 ABENA SCOTT, FORTINO T Ot R06.01 ORTHOPNEA 10/05/2017 ABENA SCOTT, FORTINO Wang Ot Z87.19 PERSONAL HISTORY OF OTHER DISEASES OF TH 10/05/2017 ABENA SCOTT, FORTINO Wang Ot Z91.14 PATIENT'S OTHER NONCOMPLIANCE WITH MEDIC 01/06/2018 EDGARDO SCOTT, REJI Sr Ot I34.0 NONRHEUMATIC MITRAL (VALVE) INSUFFICIENC 01/06/2018 EDGARDO SCOTT, REJI Sr Ot I50.9 HEART FAILURE, UNSPECIFIED 01/31/2018 EDGARDO SCOTT, REJI Sr Ot I34.0 NONRHEUMATIC MITRAL (VALVE) INSUFFICIENC 01/31/2018 EDGARDO SCOTT, REJI Sr Ot I50.9 HEART FAILURE, UNSPECIFIED 01/31/2018 EDGARDO SCTOT, REJI Sr Ot I34.0 NONRHEUMATIC MITRAL (VALVE) INSUFFICIENC 01/31/2018 EDGARDO SCOTT, REJI Sr Ot I50.9 HEART FAILURE, UNSPECIFIED 02/01/2018 EDGARDO SCOTT, REJI Sr Ot I34.0 NONRHEUMATIC MITRAL (VALVE) INSUFFICIENC 02/01/2018 EDGARDO SCOTT, REJI Sr Ot I50.9 HEART FAILURE, UNSPECIFIED 08/28/2018 DARRON HUGO MD Ot F17.220 NICOTINE DEPENDENCE, CHEWING TOBACCO, UN 08/28/2018 DARRON HUGO MD, Ot F41.9 ANXIETY DISORDER, UNSPECIFIED 08/28/2018 DARRON HUGO MD Ot I10 ESSENTIAL (PRIMARY) HYPERTENSION 08/28/2018 DARRON HUGO MD, Ot I34.0 NONRHEUMATIC MITRAL (VALVE) INSUFFICIENC 08/28/2018 DARRON HUGO MD Ot I42.9 CARDIOMYOPATHY, UNSPECIFIED 08/28/2018 DARRON HUGO MD, Ot I48.0 PAROXYSMAL ATRIAL FIBRILLATION 08/28/2018 DARRON HUGO MD Ot I50.21 ACUTE SYSTOLIC (CONGESTIVE) HEART FAILUR 08/28/2018 DARRON HUGO MD Ot J18.9 PNEUMONIA, UNSPECIFIED ORGANISM 08/28/2018 DARRON HUGO MD, Ot K57.90 DVRTCLOS OF INTEST, PART UNSP, W/O PERF 08/28/2018 DARRON HUGO MD, Ot N17.9 ACUTE KIDNEY FAILURE, UNSPECIFIED 08/28/2018 DARRON HUGO MD, Ot R73.03 PREDIABETES 08/28/2018 OANH SCOTT, DARRON Guthrie Ot Z91.14 PATIENT'S OTHER NONCOMPLIANCE WITH MEDIC Procedures There is no data. Results Test Result Range Complete blood count (CBC) with automated white blood cell (WBC) differential - 10/05/17 13:15 Blood leukocytes automated count (number/volume) 9.8 10*3/uL 4.3-11.0 Blood erythrocytes automated count (number/volume) 5.10 10*6/uL 4.35-5.85 Venous blood hemoglobin measurement (mass/volume) 15.1 g/dL 13.3-17.7 Blood hematocrit (volume fraction) 44 % 40-54 Automated erythrocyte mean corpuscular volume 87 [foz_us] 80-99 Automated erythrocyte mean corpuscular hemoglobin (mass per erythrocyte) 30 pg 25-34 Automated erythrocyte mean corpuscular hemoglobin concentration measurement ( mass/volume) 34 g/dL 32-36 Automated erythrocyte distribution width ratio 14.9 % 10.0-14.5 Automated blood platelet count (count/volume) 175 10*3/uL 130-400 Automated blood platelet mean volume measurement 11.4 [foz_us] 7.4-10.4 Automated blood neutrophils/100 leukocytes 76 % 42-75 Automated blood lymphocytes/100 leukocytes 13 % 12-44 Blood monocytes/100 leukocytes 10 % 0-12 Automated blood eosinophils/100 leukocytes 1 % 0-10 Automated blood basophils/100 leukocytes 1 % 0-10 Blood neutrophils automated count (number/volume) 7.5 10*3 1.8-7.8 Blood lymphocytes automated count (number/volume) 1.3 10*3 1.0-4.0 Blood monocytes automated count (number/volume) 0.9 10*3 0.0-1.0 Automated eosinophil count 0.1 10*3/uL 0.0-0.3 Automated blood basophil count (count/volume) 0.1 10*3/uL 0.0-0.1 PT panel in platelet poor plasma by coagulation assay - 10/05/17 13:15 Prothrombin time (PT) in platelet poor plasma by coagulation assay 14.5 s 12.2-14.7 INR in platelet poor plasma or blood by coagulation assay 1.1 0.8-1.4 Activated partial thromboplastin time (aPTT) in platelet poor plasma bycoagulation assay - 10/05/17 13:15 Activated partial thromboplastin time (aPTT) in platelet poor plasma bycoagulation assay 30 s 24-35 Comprehensive metabolic panel - 10/05/17 13:15 Serum or plasma sodium measurement (moles/volume) 143 mmol/L 135-145 Serum or plasma potassium measurement (moles/volume) 4.2 mmol/L 3.6-5.0 Serum or plasma chloride measurement (moles/volume) 111 mmol/L 98-107 Carbon dioxide 20 mmol/L 21-32 Serum or plasma anion gap determination (moles/volume) 12 mmol/L 5-14 Serum or plasma urea nitrogen measurement (mass/volume) 17 mg/dL 7-18 Serum or plasma creatinine measurement (mass/volume) 1.09 mg/dL 0.60-1.30 Serum or plasma urea nitrogen/creatinine mass ratio 16 NRG Serum or plasma creatinine measurement with calculation of estimated glomerular filtration rate > NRG Serum or plasma glucose measurement (mass/volume) 121 mg/dL 70-105 Serum or plasma calcium measurement (mass/volume) 9.0 mg/dL 8.5-10.1 Serum or plasma total bilirubin measurement (mass/volume) 1.3 mg/dL 0.1-1.0 Serum or plasma alkaline phosphatase measurement (enzymatic activity/volume) 95 U/L 40-136 Serum or plasma aspartate aminotransferase measurement (enzymatic activity/ volume) 17 U/L 5-34 Serum or plasma alanine aminotransferase measurement (enzymatic activity/volume ) 23 U/L 0-55 Serum or plasma protein measurement (mass/volume) 6.9 g/dL 6.4-8.2 Serum or plasma albumin measurement (mass/volume) 3.9 g/dL 3.2-4.5 Magnesium - 10/05/17 13:15 Magnesium 2.2 mg/dL 1.8-2.4 Serum or plasma troponin i.cardiac measurement (mass/volume) - 10/05/17 13:15 Serum or plasma troponin i.cardiac measurement (mass/volume) < ng/ mL <0.30 Serum or plasma lithium measurement (moles/volume) - 10/05/17 13:15 BNP level 1961.8 pg/mL <100.0 Myoglobin, serum - 10/05/17 13:15 Myoglobin, serum 57.0 ng/mL 10.0-92.0 Complete blood count (CBC) with automated white blood cell (WBC) differential - 08/26/18 12:42 Blood leukocytes automated count (number/volume) 12.0 10*3/uL 4.3-11.0 Blood erythrocytes automated count (number/volume) 5.10 10*6/uL 4.35-5.85 Venous blood hemoglobin measurement (mass/volume) 15.6 g/dL 13.3-17.7 Blood hematocrit (volume fraction) 46 % 40-54 Automated erythrocyte mean corpuscular volume 89 [foz_us] 80-99 Automated erythrocyte mean corpuscular hemoglobin (mass per erythrocyte) 31 pg 25-34 Automated erythrocyte mean corpuscular hemoglobin concentration measurement ( mass/volume) 34 g/dL 32-36 Automated erythrocyte distribution width ratio 15.8 % 10.0-14.5 Automated blood platelet count (count/volume) 220 10*3/uL 130-400 Automated blood platelet mean volume measurement 10.8 [foz_us] 7.4-10.4 Automated blood neutrophils/100 leukocytes 71 % 42-75 Automated blood lymphocytes/100 leukocytes 18 % 12-44 Blood monocytes/100 leukocytes 9 % 0-12 Automated blood eosinophils/100 leukocytes 1 % 0-10 Automated blood basophils/100 leukocytes 0 % 0-10 Blood neutrophils automated count (number/volume) 8.6 10*3 1.8-7.8 Blood lymphocytes automated count (number/volume) 2.2 10*3 1.0-4.0 Blood monocytes automated count (number/volume) 1.1 10*3 0.0-1.0 Automated eosinophil count 0.1 10*3/uL 0.0-0.3 Automated blood basophil count (count/volume) 0.0 10*3/uL 0.0-0.1 Comprehensive metabolic panel - 08/26/18 12:42 Serum or plasma sodium measurement (moles/volume) 141 mmol/L 135-145 Serum or plasma potassium measurement (moles/volume) 3.9 mmol/L 3.6-5.0 Serum or plasma chloride measurement (moles/volume) 104 mmol/L 98-107 Carbon dioxide 25 mmol/L 21-32 Serum or plasma anion gap determination (moles/volume) 12 mmol/L 5-14 Serum or plasma urea nitrogen measurement (mass/volume) 20 mg/dL 7-18 Serum or plasma creatinine measurement (mass/volume) 1.48 mg/dL 0.60-1.30 Serum or plasma urea nitrogen/creatinine mass ratio 14 NRG Serum or plasma creatinine measurement with calculation of estimated glomerular filtration rate 48 NRG Serum or plasma glucose measurement (mass/volume) 107 mg/dL 70-105 Serum or plasma calcium measurement (mass/volume) 9.8 mg/dL 8.5-10.1 Serum or plasma total bilirubin measurement (mass/volume) 1.9 mg/dL 0.1-1.0 Serum or plasma alkaline phosphatase measurement (enzymatic activity/volume) 95 U/L 40-136 Serum or plasma aspartate aminotransferase measurement (enzymatic activity/ volume) 20 U/L 5-34 Serum or plasma alanine aminotransferase measurement (enzymatic activity/volume ) 51 U/L 0-55 Serum or plasma protein measurement (mass/volume) 8.2 g/dL 6.4-8.2 Serum or plasma albumin measurement (mass/volume) 4.4 g/dL 3.2-4.5 CALCIUM CORRECTED 9.5 mg/dL 8.5-10.1 Magnesium - 08/26/18 12:42 Magnesium 2.5 mg/dL 1.8-2.4 Fibrin D-dimer FEU measurement in platelet poor plasma (mass/volume) - 12:42 Fibrin D-dimer FEU measurement in platelet poor plasma (mass/volume) 0.63 ug/mL 0.00-0.49 PT panel in platelet poor plasma by coagulation assay - 08/26/18 12:42 Prothrombin time (PT) in platelet poor plasma by coagulation assay 13.9 s 12.2-14.7 INR in platelet poor plasma or blood by coagulation assay 1.1 0.8-1.4 Activated partial thromboplastin time (aPTT) in platelet poor plasma bycoagulation assay - 08/26/18 12:42 Activated partial thromboplastin time (aPTT) in platelet poor plasma bycoagulation assay 29 s 24-35 Serum or plasma troponin i.cardiac measurement (mass/volume) - 08/26/18 12:42 Serum or plasma troponin i.cardiac measurement (mass/volume) < ng/ mL <0.30 Myoglobin, serum - 08/26/18 12:42 Myoglobin, serum 74.7 ng/mL 10.0-92.0 Serum or plasma lithium measurement (moles/volume) - 08/26/18 12:42 BNP level 1426.4 pg/mL <100.0 Methicillin resistant Staphylococcus aureus (MRSA) screening culture - 15:25 Methicillin resistant Staphylococcus aureus (MRSA) screening culture NEG NRG Complete blood count (CBC) with automated white blood cell (WBC) differential - 08/27/18 01:20 Blood leukocytes automated count (number/volume) 12.2 10*3/uL 4.3-11.0 Blood erythrocytes automated count (number/volume) 4.48 10*6/uL 4.35-5.85 Venous blood hemoglobin measurement (mass/volume) 14.1 g/dL 13.3-17.7 Blood hematocrit (volume fraction) 41 % 40-54 Automated erythrocyte mean corpuscular volume 91 [foz_us] 80-99 Automated erythrocyte mean corpuscular hemoglobin (mass per erythrocyte) 32 pg 25-34 Automated erythrocyte mean corpuscular hemoglobin concentration measurement ( mass/volume) 35 g/dL 32-36 Automated erythrocyte distribution width ratio 15.6 % 10.0-14.5 Automated blood platelet count (count/volume) 182 10*3/uL 130-400 Automated blood platelet mean volume measurement 11.6 [foz_us] 7.4-10.4 Automated blood neutrophils/100 leukocytes 83 % 42-75 Automated blood lymphocytes/100 leukocytes 9 % 12-44 Blood monocytes/100 leukocytes 7 % 0-12 Automated blood eosinophils/100 leukocytes 1 % 0-10 Automated blood basophils/100 leukocytes 0 % 0-10 Blood neutrophils automated count (number/volume) 10.1 10*3 1.8-7.8 Blood lymphocytes automated count (number/volume) 1.1 10*3 1.0-4.0 Blood monocytes automated count (number/volume) 0.9 10*3 0.0-1.0 Automated eosinophil count 0.1 10*3/uL 0.0-0.3 Automated blood basophil count (count/volume) 0.1 10*3/uL 0.0-0.1 Blood lactic acid measurement (moles/volume) - 08/27/18 01:20 Blood lactic acid measurement (moles/volume) 1.88 mmol/L 0.50-2.00 Magnesium - 08/27/18 01:20 Magnesium 2.2 mg/dL 1.8-2.4 Lipid 1996 panel - 08/27/18 01:20 Serum or plasma triglyceride measurement (mass/volume) 53 mg/dL <150 Serum or plasma cholesterol measurement (mass/volume) 95 mg/dL < 200 Serum or plasma cholesterol in HDL measurement (mass/volume) 30 mg/ dL 40-60 Cholesterol in LDL [mass/volume] in serum or plasma by direct assay 62 mg/dL 1-129 Serum or plasma cholesterol in VLDL measurement (mass/volume) 11 mg/ dL 5-40 Serum or plasma lithium measurement (moles/volume) - 08/27/18 01:20 BNP level 1564.4 pg/mL <100.0 THYROID STIMULATING HORMONE - 08/27/18 01:20 THYROID STIMULATING HORMONE 0.73 u[iU]/mL 0.35-4.94 Whole blood basic metabolic panel - 08/27/18 01:20 Serum or plasma sodium measurement (moles/volume) 137 mmol/L 135-145 Serum or plasma potassium measurement (moles/volume) 4.7 mmol/L 3.6-5.0 Serum or plasma chloride measurement (moles/volume) 103 mmol/L 98-107 Carbon dioxide 18 mmol/L 21-32 Serum or plasma anion gap determination (moles/volume) 16 mmol/L 5-14 Serum or plasma urea nitrogen measurement (mass/volume) 22 mg/dL 7-18 Serum or plasma creatinine measurement (mass/volume) 1.39 mg/dL 0.60-1.30 Serum or plasma urea nitrogen/creatinine mass ratio 16 NRG Serum or plasma creatinine measurement with calculation of estimated glomerular filtration rate 52 NRG Serum or plasma glucose measurement (mass/volume) 129 mg/dL 70-105 Serum or plasma calcium measurement (mass/volume) 8.8 mg/dL 8.5-10.1 Serum or plasma phosphate measurement (mass/volume) - 08/27/18 01:20 Serum or plasma phosphate measurement (mass/volume) 3.7 mg/dL 2.3-4.7 Bacterial blood culture - 08/27/18 01:20 Bacterial blood culture NG NRG Bacterial blood culture - 08/27/18 01:32 Bacterial blood culture NG NRG Complete urinalysis with reflex to culture - 08/27/18 02:03 Urine color determination YELLOW NRG Urine clarity determination CLEAR NRG Urine pH measurement by test strip 6.5 5-9 Specific gravity of urine by test strip 1.010 1.016- 1.022 Urine protein assay by test strip, semi-quantitative NEGATIVE NEGATIVE Urine glucose detection by automated test strip NEGATIVE NEGATIVE Erythrocytes detection in urine sediment by light microscopy NEGATIVE NEGATIVE Urine ketones detection by automated test strip NEGATIVE NEGATIVE Urine nitrite detection by test strip NEGATIVE NEGATIVE Urine total bilirubin detection by test strip NEGATIVE NEGATIVE Urine urobilinogen measurement by automated test strip (mass/volume) 1 mg/dL NORMAL Urine leukocyte esterase detection by dipstick NEGATIVE NEGATIVE Automated urine sediment erythrocyte count by microscopy (number/high power field) NONE NRG Automated urine sediment leukocyte count by microscopy (number/high power field ) NONE NRG Bacteria detection in urine sediment by light microscopy NEGATIVE NRG Squamous epithelial cells detection in urine sediment by light microscopy NONE NRG Crystals detection in urine sediment by light microscopy NONE NRG Casts detection in urine sediment by light microscopy NONE NRG Mucus detection in urine sediment by light microscopy NEGATIVE NRG Complete urinalysis with reflex to culture NO NRG Digoxin - 08/28/18 06:30 Digoxin 0.67 ng/mL 0.80-2.00 Arterial blood gas measurement - 09/27/18 10:01 Blood pCO2 89 mm[Hg] 35-45 Blood pO2 101 mm[Hg] 79-93 Arterial blood bicarbonate measurement (moles/volume) 28 mmol/L 23-27 Arterial blood base excess by calculation -0.7 mmol/L - 2.5-2.5 Arterial blood oxygen saturation measurement 96 % 94-100 * Inhaled oxygen flow rate 100% NRG Arterial blood pH measurement with patient temperature correction 7.13 7.37-7.43 Arterial blood carbon dioxide, total measurement (moles/volume) 30.1 mmol/L 21.0-31.0 Body site RT RAD NRG Assessment of wrist artery patency prior to arterial puncture YES- POS NRG Setting of ventilation mode YES NRG Measurement of body temperature 100.0 NRG Complete urinalysis with reflex to culture - 09/27/18 10:13 Urine color determination TAJ NRG Urine clarity determination CLEAR NRG Urine pH measurement by test strip 5 5-9 Specific gravity of urine by test strip 1.020 1.016- 1.022 Urine protein assay by test strip, semi-quantitative 3+ NEGATIVE Urine glucose detection by automated test strip NEGATIVE NEGATIVE Erythrocytes detection in urine sediment by light microscopy 2+ NEGATIVE Urine ketones detection by automated test strip NEGATIVE NEGATIVE Urine nitrite detection by test strip NEGATIVE NEGATIVE Urine total bilirubin detection by test strip NEGATIVE NEGATIVE Urine urobilinogen measurement by automated test strip (mass/volume) 1 mg/dL NORMAL Urine leukocyte esterase detection by dipstick NEGATIVE NEGATIVE Automated urine sediment erythrocyte count by microscopy (number/high power field) [HPF] NRG Automated urine sediment leukocyte count by microscopy (number/high power field ) [HPF] NRG Bacteria detection in urine sediment by light microscopy TRACE NRG Crystals detection in urine sediment by light microscopy NONE NRG Casts detection in urine sediment by light microscopy PRESENT NRG Mucus detection in urine sediment by light microscopy SMALL NRG Complete urinalysis with reflex to culture NO NRG Hyaline casts detection in urine sediment by light microscopy >50 NRG Complete blood count (CBC) with automated white blood cell (WBC) differential - 09/27/18 10:15 Blood leukocytes automated count (number/volume) 16.2 10*3/uL 4.3-11.0 Blood erythrocytes automated count (number/volume) 5.22 10*6/uL 4.35-5.85 Venous blood hemoglobin measurement (mass/volume) 15.7 g/dL 13.3-17.7 Blood hematocrit (volume fraction) 48 % 40-54 Automated erythrocyte mean corpuscular volume 93 [foz_us] 80-99 Automated erythrocyte mean corpuscular hemoglobin (mass per erythrocyte) 30 pg 25-34 Automated erythrocyte mean corpuscular hemoglobin concentration measurement ( mass/volume) 32 g/dL 32-36 Automated erythrocyte distribution width ratio 15.6 % 10.0-14.5 Automated blood platelet count (count/volume) 204 10*3/uL 130-400 Automated blood platelet mean volume measurement 11.9 [foz_us] 7.4-10.4 Automated blood neutrophils/100 leukocytes 76 % 42-75 Automated blood lymphocytes/100 leukocytes 13 % 12-44 Blood monocytes/100 leukocytes 9 % 0-12 Automated blood eosinophils/100 leukocytes 2 % 0-10 Automated blood basophils/100 leukocytes 0 % 0-10 Blood neutrophils automated count (number/volume) 12.3 10*3 1.8-7.8 Blood lymphocytes automated count (number/volume) 2.1 10*3 1.0-4.0 Blood monocytes automated count (number/volume) 1.4 10*3 0.0-1.0 Automated eosinophil count 0.2 10*3/uL 0.0-0.3 Automated blood basophil count (count/volume) 0.1 10*3/uL 0.0-0.1 Blood manual differential performed detection - 09/27/18 10:15 Blood monocytes/100 leukocytes 7 % NRG Manual blood segmented neutrophils/100 leukocytes 78 % NRG Blood band neutrophils/100 leukocytes 1 % NRG Manual blood lymphocytes/100 leukocytes 11 % NRG Manual eosinophils/100 leukocytes in nose 2 % NRG Manual blood basophils/100 leukocytes 1 % NRG Blood anisocytosis detection by light microscopy SLIGHT NRG Encounters ACCT No. Visit Date/Time Discharge Status Pt. Type Provider Facility Loc./Unit Complaint [id number] 08/26/2018 14:11:00 08/28/2018 07:30:00 DIS Outpatient OANH SCOTT, DARRON Guthrie [facility] 4TH AFIB;RVR,CHF [id number] 01/05/2018 11:53:00 01/05/2018 23:59:59 CLS Outpatient REJI REYNOSO MD [facility] CARD CHF [id number] 10/05/2017 13:08:00 10/05/2017 15:11:00 DIS Emergency FORTINO KRAFT MD [facility] ER CHEST PAIN [id number] 02/09/2016 17:18:00 02/09/2016 19:35:00 DIS Emergency VALENTE DO, MICHAEL K [facility] ER RIB PAIN [id number] 09/11/2014 07:37:00 09/11/2014 10:00:00 DIS Outpatient REJI REYNOSO MD [facility] SDC SCREENING [id number] 09/06/2014 07:40:00 09/06/2014 23:59:59 CLS Outpatient REJI REYNOSO MD [facility] PREOP SCREENING [id number] 01/02/2014 10:20:00 01/02/2014 15:20:00 DIS Outpatient AMMON SCOTT FACC, ALI FACP CCDS [facility] CATH ANGINA,SOB, HTN, [id number] 11/14/2013 08:33:00 11/14/2013 23:59:59 CLS Outpatient EDGARDO SCOTT, REJI Sr [facility] CARD SOB,YEHUDA [id number] 05/17/2013 11:41:00 05/17/2013 12:20:00 DIS Emergency MICHAEL VICTOR DO [facility] ER WOUND CHECK/SUTURE REMOVAL [id number] 05/01/2013 21:46:00 05/01/2013 23:50:00 DIS Emergency DEWEY RAMSEY [facility] ER CUT ON L THUMB [id number] 09/27/2018 09:51:00 ACT Emergency VINCENZO SCOTT, HAYLEE Sr [facility] ER SOMei,CHF
[2018-09-27] MEDS ORDERED: DEXMEDETOMIDINE INJECTION 200 MCG in NS (IVPB) 50 ML IV SCH (12:15)
[2018-09-27] MEDS ORDERED: PHARMACY TO DOSE IV SCH (12:15)
--- NOTE | 2018-09-27 12:19 | Pulmonary Consultation ---
History of Present Illness History of Present Illness Date of Consultation 09/27/18 12:13 Time Seen by Provider: 12:13 Date of Admission History of Present Illness 62yo with hx of CHF EF 20%, Afib, presented to ED via EMS from Dr. Alejandro's office secondary to respiratory distress. Once pt arrived to ED he had progressive respiratory decline and was intubated. After intubation patient became hypotensive. He is currently on Levophed and Dopamine gtt. Pt is currently sedated on ventilator with Diprivan gtt. Unable to obtain ROS. I am consulted for ICU management. Allergies and Home Medications Allergies Coded Allergies: Penicillins (Verified Allergy, Unknown, 08/26/18) Home Medications Allopurinol 100 Mg Tablet, 200 MG PO HS, (Reported) TAKES 2 (100MG) TABLETS Alprazolam 1 Mg Tablet, 1 MG PO TID PRN for ANXIETY, (Reported) Amlodipine Besylate 10 Mg Tablet, 10 MG PO DAILY, (Reported) Cranberry Fruit Concentrate 450 Mg Capsule, 450 MG PO DAILY, (Reported) Furosemide 80 Mg Tablet, 80 MG PO BID, (Reported) Lisinopril 40 Mg Tablet, 40 MG PO DAILY, (Reported) Metoprolol Succinate 100 Mg Tab.er.24h, 100 MG PO DAILY, (Reported) [place]-3/Dha/Epa/Fish Oil 1 Each Capsule.dr, 1,400 MG PO DAILY, (Reported) Potassium Chloride 10 Meq Tablet.er, 10 MEQ PO DAILY, (Reported) LAST FILLED #90 05-23-18 Past Cqaqsco-Vyvowz-Tyareg Hx Past Med/Social Hx: Reviewed Nursing Past Med/Soc Hx Patient Social History Alcohol Use: Denies Use Recreational Drug Use: No Type Used: Smokeless Tobacco Recent Hopitalizations: No Immunizations Up To Date Tetanus Booster (TDap): Unknown Seasonal Allergies Seasonal Allergies: No Past Medical History Surgeries: Yes (COLONOSCOPY, CARDIAC CATH 12/2013) Abdominal, Cardiac Respiratory: No Cardiac: Yes (EXTREME NON-COMPLIANCE WITH MEDICATION) Cardiomyopathy, Hypertension Neurological: No Reproductive Disorders: No Sexually Transmitted Disease: No Genitourinary: No Gastrointestinal: Yes (DIVERTICULAR DISEASE FOUND ON SCREENING COLONOSCOPY) Diverticulosis Musculoskeletal: No Endocrine: No Cancer: No Psychosocial: No Anxiety Integumentary: No Blood Disorders: No Family Medical History Reviewed Nursing Family Hx No Pertinent Family Hx Review of Systems Time Seen by Provider: 10:50 Sepsis Event Evaluation Height, Weight, BMI Height: 5'11.00" Weight: 215lbs. 9.0oz. 97.264750qm; 30.0 BMI Method:Stated Exam Exam Vital Signs Date Time Temp Pulse Resp B/P (MAP) Pulse Ox O2 Delivery O2 Flow Rate FiO2 09/27/18 10:40 95 18 92 100 Height & Weight Height: 5'11.00" Weight: 215lbs. 9.0oz. 97.532527rj; 30.0 BMI Method:Stated General Appearance: Other (sedated on vent) HEENT: PERRL/EOMI, Pharynx Normal Neck: Full Range of Motion, Supple Respiratory: No Accessory Muscle Use, No Respiratory Distress, Decreased Breath Sounds Cardiovascular: Regular Rate, Rhythm Capillary Refill: Less Than 3 Seconds Gastrointestinal: non tender, soft Skin: Normal Color, Warm/Dry Lymphatic: No Adenopathy Results Lab Laboratory Tests 09/27/18 10:15 09/27/18 11:30 Assessment/Plan Assessment/Plan Acute respiratory failure -Ventilator management -repeat CXR Pneumonia with ARDS -Continue vanco, merrem -Pt is currently on 12 peep and 100% Fi02 -Check CVP monitoring -Strong cultures -check influenza Acute renal failure with hyperkalemia -Repeat labs -Check bilateral renal US Hx of CHF EF 20% -Check stat echocardiogram -consult cardiology Afib RVR -Currently on Cardizem gtt -Start heparin gtt Hypotension secondary to sedation and intubation r/o septic shock -Will be gentle with IVF secondary to severe respiratory failure/hypoxia -wean down Diprivan and start Precedex -Currently on Levophed and dopamine gtt -CVP montioring -Stat echo -stat bilateral dopplers RONNELL COCHRAN DO Sep 27, 2018 12:19
--- OUTSIDE RECORDS SUMMARY | 2018-09-27 12:27 | XMS REPORT | Continuity of Care Document ---
Author Author [facility] Organization [facility] Address Unknown Phone Unavailable Allergies Active Description Code Type Severity Reaction Onset Reported/Identified Relationship to Patient Clinical Status Yes Penicillins [id number] Drug Allergy Unknown N/A 08/26/2018 Medications There is no data. Problems Date Dx Coded Attending Type Code Diagnosis Diagnosed By 05/01/2013 DEWEY RAMSEY Ot 883.0 OPEN WOUND OF FINGER 05/01/2013 DEWEY RAMSEY Ot E000.8 OTHER EXTERNAL CAUSE STATUS 05/01/2013 DEWEY RAMSEY Ot E849.0 ACCIDENT IN HOME 05/01/2013 DEWEY RAMSEY Ot E920.8 ACC-CUTTING INSTRUM NEC 05/01/2013 DEWEY RAMSEY Ot V06.1 [id number], COMBINED [ 05/17/2013 MICHAEL VICTOR DO Ot [...] 02/09/2016 REJI REYNOSO MD Ot 428.0 02/09/2016 REJI REYNOSO MD Ot 785.2 02/09/2016 REJI REYNOSO [...] anisocytosis detection by light microscopy SLIGHT NRG PT panel in platelet poor plasma by coagulation assay - 09/27/18 11:30 Prothrombin time (PT) in platelet poor plasma by coagulation assay 22.0 s 12.2-14.7 INR in platelet poor plasma or blood by coagulation assay 1.9 0.8-1.4 Activated partial thromboplastin time (aPTT) in platelet poor plasma bycoagulation assay - 09/27/18 11:30 Activated partial thromboplastin time (aPTT) in platelet poor plasma bycoagulation assay 31 s 24-35 Blood lactic acid measurement (moles/volume) - 09/27/18 11:30 Blood lactic acid measurement (moles/volume) 0.91 mmol/L 0.50-2.00 Comprehensive metabolic panel - 09/27/18 11:30 Serum or plasma sodium measurement (moles/volume) 138 mmol/L 135-145 Serum or plasma potassium measurement (moles/volume) 5.5 mmol/L 3.6-5.0 Serum or plasma chloride measurement (moles/volume) 103 mmol/L 98-107 Carbon dioxide 26 mmol/L 21-32 Serum or plasma anion gap determination (moles/volume) 9 mmol/L 5-14 Serum or plasma urea nitrogen measurement (mass/volume) 32 mg/dL 7-18 Serum or plasma creatinine measurement (mass/volume) 1.90 mg/dL 0.60-1.30 Serum or plasma urea nitrogen/creatinine mass ratio 17 NRG Serum or plasma creatinine measurement with calculation of estimated glomerular filtration rate 36 NRG Serum or plasma glucose measurement (mass/volume) 159 mg/dL 70-105 Serum or plasma calcium measurement (mass/volume) 9.2 mg/dL 8.5-10.1 Serum or plasma total bilirubin measurement (mass/volume) 2.2 mg/dL 0.1-1.0 Serum or plasma alkaline phosphatase measurement (enzymatic activity/volume) 92 U/L 40-136 Serum or plasma aspartate aminotransferase measurement (enzymatic activity/ volume) 26 U/L 5-34 Serum or plasma alanine aminotransferase measurement (enzymatic activity/volume ) 28 U/L 0-55 Serum or plasma protein measurement (mass/volume) 7.0 g/dL 6.4-8.2 Serum or plasma albumin measurement (mass/volume) 4.1 g/dL 3.2-4.5 CALCIUM CORRECTED 9.1 mg/dL 8.5-10.1 Serum or plasma troponin i.cardiac measurement (mass/volume) - 09/27/18 11:30 Serum or plasma troponin i.cardiac measurement (mass/volume) < ng/ mL <0.30 Encounters ACCT No. Visit Date/Time Discharge Status Pt. Type Provider Facility Loc./Unit Complaint [id number] 08/26/2018 14:11:00 08/28/2018 07:30:00 DIS Outpatient OANH SCOTT, DARRON Guthrie [facility] 4TH AFIB;RVR,CHF [id number] 01/05/2018 11:53:00 01/05/2018 23:59:59 CLS Outpatient REJI REYNOSO MD [facility] CARD CHF [id number] 10/05/2017 13:08:00 10/05/2017 15:11:00 DIS Emergency FORTINO KRAFT MD [facility] ER CHEST PAIN [id number] 02/09/2016 17:18:00 02/09/2016 19:35:00 DIS Emergency VALENTE DO, MICHAEL K [facility] ER RIB PAIN [id number] 09/11/2014 07:37:00 09/11/2014 10:00:00 DIS Outpatient REJI REYNOSO MD [facility] SDC SCREENING [id number] 09/06/2014 07:40:00 09/06/2014 23:59:59 CLS Outpatient REJI REYNOSO MD [facility] PREOP SCREENING [id number] 01/02/2014 10:20:00 01/02/2014 15:20:00 DIS Outpatient AMMON SCOTT FACC, VIDYA HOWARD CCDS [facility] CATH ANGINA,SOB, HTN, [id number] 11/14/2013 08:33:00 11/14/2013 23:59:59 CLS Outpatient EDGARDO SCOTT, REJI Sr [facility] CARD SOB,MUMUR [id number] 05/17/2013 11:41:00 05/17/2013 12:20:00 DIS Emergency MICHAEL VICTOR DO [facility] ER WOUND CHECK/SUTURE REMOVAL [id number] 05/01/2013 21:46:00 05/01/2013 23:50:00 DIS Emergency DEWEY RAMSEY [facility] ER CUT ON L THUMB [id number] 09/27/2018 11:51:00 ACT Inpatient SAMAN PADILLA MD [facility] ICU SEPSIS;PNA;CHF
[2018-09-27] MEDS ORDERED: NS IV ONE (12:30)
[2018-09-27 12:40] LABS: ABG BASE EXCESS -0.1 MMOL/L (-2.5-2.5); ABG OXYGEN SATURATION 96 % (94-100); ABG PO2 97 MMHG (79-93); ABG TCO2 29.9 MMOL/L (21.0-31.0)
[2018-09-27 12:42] LABS: ABG PCO2 78 MMHG (35-45); ABG PH 7.17 (7.37-7.43)
[2018-09-27 12:43] LABS: ALLENS TEST YES-POS; INSPIRED O2 100%; PATIENT TEMP 98.9; VENTILATOR YES
[2018-09-27] MEDS ORDERED: ENOXAPARIN 40 MG/0.4 ML (LOVENOX) SYR SQ SCH (12:45)
--- NOTE | 2018-09-27 12:51 | Consultation-Cardiology ---
HPI-Cardiology Cardiology Consultation: Date of Consultation 09/27/18 Time Seen by a Provider: 12:45 Date of Admission Attending Physician Gunnar De La Cruz MD Admitting Physician Perez Alejandro MD Consulting Physician VIDYA VERDE MD, MA, FACP, FACC, [facility], CCDS Physician requesting consult: Dr Dudley HPI: Chief Complaint: Reason for consultation: Acute respiratory failure HPI 62 yo man with known nonischemic cardiomyopathy who has not complied with outpatient cardiac f/u. Today, he is admitted with ac resp failure. Currently on mech vent and sedated, not able to provide history. states he has been more and more short of breath and wheezy. Has not been reporting cp or palp. Has not had syncope. Has had mild leg swelling Review of Systems-Cardiology Review of Systems Constitutional: As described under HPI, other (He is not able to provide a review of systems due to being on mech vent and being sedated) ZNP-Abbyzj-Gyqhun Hx Patient Social History Alcohol Use: Denies Use Recreational Drug Use: No Type Used: Smokeless Tobacco Immunizations Up To Date Tetanus Booster (TDap): Unknown Past Medical History PMH As described under Assessment. Family Medical History Family Medical History: No fam h/o early CAD or SCD Allergies and Home Medications Allergies Coded Allergies: Penicillins (Verified Allergy, Unknown, 08/26/18) Home Medications Allopurinol 100 Mg Tablet, 200 MG PO HS, (Reported) TAKES 2 (100MG) TABLETS Alprazolam 1 Mg Tablet, 1 MG PO TID PRN for ANXIETY, (Reported) Amlodipine Besylate 10 Mg Tablet, 10 MG PO DAILY, (Reported) Cranberry Fruit Concentrate 450 Mg Capsule, 450 MG PO DAILY, (Reported) Furosemide 40 Mg Tablet, 40 MG PO DAILY, (Reported) Lisinopril 40 Mg Tablet, 40 MG PO DAILY, (Reported) [place]-3/Dha/Epa/Fish Oil 1 Each Capsule.dr, 1,400 MG PO DAILY, (Reported) Potassium Chloride 10 Meq Tablet.er, 10 MEQ PO DAILY, (Reported) Patient Home Medication List Home Medication List Reviewed: Yes Physical Exam-Cardiology Physical Exam Vital Signs/I&O 09/27/18 10:40 Pulse 95 Resp 18 Pulse Ox 92 FiO2 100 Capillary Refill : Constitutional: other (on mech vent) HEENT: PERRL; No xanthelasmas are seen Neck: carotid pulses are 2 + bilaterally, with good upstrokes Respiratory: other (good bilat air entry; basal coarse and fine crackles; large -airway rhonchi) Cardiovascular: irregularly irregular, S1 and S2, systolic murmur (soft ZOE at card base) Gastrointestinal: soft; No guarding, No rebound; audible bowel sounds Extremities: swelling (mild to mod bilat pitting edema of the legs); No clubbing, No cyanosis Neurologic/Psychiatric: other (unable to coperate with a neuro exam at this time) Skin: No rash on exposed areas, No ulcerations on exposed areas Data Review Labs Laboratory Tests 09/27/18 10:01: Blood Gas Puncture Site RT RAD, Blood Gas Patient Temperature 100.0, Arterial Blood pH 7.13*L, Arterial Blood Partial Pressure CO2 89*H, Arterial Blood Partial Pressure O2 101H, Arterial Blood HCO3 28H, Arterial Blood Total CO2 30.1 , Arterial Blood Oxygen Saturation 96, Arterial Blood Base Excess -0.7, Michael Test YES-POS, Blood Gas Ventilator Setting YES, Blood Gas Inspired Oxygen 100% 09/27/18 10:13: Urine Color AMBERH, Urine Clarity CLEAR, Urine pH 5, Urine Specific [place] 1.020, Urine Protein 3+H, Urine Glucose (UA) NEGATIVE, Urine Ketones NEGATIVE, Urine Nitrite NEGATIVE, Urine Bilirubin NEGATIVE, Urine Urobilinogen 1, Urine Leukocyte Esterase NEGATIVE, Urine RBC (Auto) 2+H, Urine RBC 5-10H, Urine WBC 0- 2, Urine Crystals NONE, Urine Bacteria TRACE, Urine Casts PRESENT, Urine Hyaline Casts >50H, Urine Mucus SMALLH, Urine Culture Indicated NO 09/27/18 10:15: White Blood Count 16.2H, Red Blood Count 5.22, Hemoglobin 15.7, Hematocrit 48, Mean Corpuscular Volume 93, Mean Corpuscular Hemoglobin 30, Mean Corpuscular Hemoglobin Concent 32, Red Cell Distribution Width 15.6H, Platelet Count 204, Mean Platelet Volume 11.9H, Neutrophils (%) (Auto) 76H, Lymphocytes (%) (Auto) 13, Monocytes (%) (Auto) 9, Eosinophils (%) (Auto) 2, Basophils (%) (Auto) 0, Neutrophils # (Auto) 12.3H, Lymphocytes # (Auto) 2.1, Monocytes # (Auto) 1.4H, Eosinophils # (Auto) 0.2, Basophils # (Auto) 0.1, Neutrophils % (Manual) 78, Lymphocytes % (Manual) 11, Monocytes % (Manual) 7, Eosinophils % (Manual) 2, Basophils % (Manual) 1, Band Neutrophils 1, Anisocytosis SLIGHT 09/27/18 11:30: Prothrombin Time 22.0H, INR Comment 1.9H, Activated Partial Thromboplast Time 31 , Sodium Level 138, Potassium Level 5.5H, Chloride Level 103, Carbon Dioxide Level 26, Anion Gap 9, Blood Urea Nitrogen 32H, Creatinine 1.90H, Estimat Glomerular Filtration Rate 36, BUN/Creatinine Ratio 17, Glucose Level 159H, Lactic Acid Level 0.91, Calcium Level 9.2, Corrected Calcium 9.1, Total Bilirubin 2.2H, Aspartate Amino Transf (AST/SGOT) 26, Alanine Aminotransferase ( ALT/SGPT) 28, Alkaline Phosphatase 92, Troponin I < 0.30, Total Protein 7.0, Albumin 4.1 09/27/18 12:35: Blood Gas Puncture Site RT RAD, Blood Gas Patient Temperature 98.9, Arterial Blood pH 7.17*L, Arterial Blood Partial Pressure CO2 78*H, Arterial Blood Partial Pressure O2 97H, Arterial Blood HCO3 28H, Arterial Blood Total CO2 29.9 , Arterial Blood Oxygen Saturation 96, Arterial Blood Base Excess -0.1, Michael Test YES-POS, Blood Gas Ventilator Setting YES, Blood Gas Inspired Oxygen 100% Laboratory Tests 09/27/18 10:15 09/27/18 11:30 A/P-Cardiology Assessment/Admission Diagnosis Acute resp failure, multifactorial (see below) Ac systolic CHF due to nonischemic cardiomyopathy. Echo of 09/27/18 showed LVEF 20-25% that is unchanged compared to echo of Aug 2018, grade III diastolic dysfunction, biatrial enlargement, PASP 45 mmHg (unchanged compared to Aug 2018 study) Pneumonia with sepsis and septic shock PAF, vent rate currently controlled Card cath of 2013: no significant CAD, LVEF 40-45% Ac renal failure of undetermined etiology, possibly ATN due to hypotension Borderline DM II Tobacco chewing, chronic H/o noncompliance Discussion and Recomendations * Pressor support for bp * Dobutamine for cardiac output * Fluids as needed (given sepsis) * Once bp stabilizes, then treat with bb, DANIA-ihib, diuretics (including spironolactone) * He has been noncompliant with card f/u and card regimen. I discussed with his and his son the importance of f/u, given that he has advanced cardiomyopathy and is clearly symptomatic from it (2nd hosp in a month) * I discussed his case with Dr Dudley of the Pulm and ICU Svce * ICU and Med Svce managing pneumonia, sepsis and ac renal failure with mild hyperkalemia VIDYA VERDE MD FACP FAC CCDS Sep 27, 2018 12:51
--- NOTE | 2018-09-27 12:53 | Diagnostic Imaging Report ---
INDICATION: Chest pain. EXAMINATION: Portable chest at 12:39 PM. FINDINGS: There is an ET tube projecting over the trachea. An NG tube projects over the stomach. The right IJ central line tip projects over the SVC. There is cardiomegaly. There is vascular congestion. There is bilateral perihilar alveolar infiltrate which is probably pulmonary edema. IMPRESSION: The support tubes and catheters project over appropriate structures. There are bilateral perihilar infiltrates which are likely pulmonary edema. Dictated by: Dictated on workstation # [id number]
[2018-09-27] MEDS: NS IV 1000 ML 1,000 ML IV SCH ×3 (13:00→16:23)
[2018-09-27 13:07] LABS: BASOPHILS % (AUTO) 0 % (0-10); EOSINOPHILS # (AUTO) 0.1 10^3/uL (0.0-0.3); EOSINOPHILS % (AUTO) 0 % (0-10); HEMATOCRIT 46 % (40-54); HEMOGLOBIN 15.1 G/DL (13.3-17.7); LYMPHOCYTES # (AUTO) 0.5 X 10^3 (1.0-4.0); LYMPHOCYTES % (AUTO) 3 % (12-44); MEAN CORPUSCULAR HEMOGLOBIN 30 PG (25-34); MEAN CORPUSCULAR HGB CONC 33 G/DL (32-36); MEAN CORPUSCULAR VOLUME 92 FL (80-99); MEAN PLATELET VOLUME 11.6 FL (7.4-10.4); MONOCYTES # (AUTO) 0.8 X 10^3 (0.0-1.0); MONOCYTES % (AUTO) 4 % (0-12); NEUTROPHILS # (AUTO) 18.2 X 10^3 (1.8-7.8); NEUTROPHILS % (AUTO) 93 % (42-75); PLATELET COUNT 219 10^3/uL (130-400); RED CELL DISTRIBUTION WIDTH 15.8 % (10.0-14.5); WHITE BLOOD COUNT 19.5 10^3/uL (4.3-11.0)
[2018-09-27] MEDS ORDERED: DOBUTamine INJECTION 250 MG in NS (IVPB) 250 ML IV SCH (13:15)
[2018-09-27 13:27] LABS: ANISOCYTOSIS SLIGHT; BAND NEUTROPHILS 6 %; BASOPHILS % (MANUAL) 0 %; EOSINOPHILS % (MANUAL) 0 %; LYMPHOCYTES % (MANUAL) 5 %; MONOCYTES % (MANUAL) 3 %; NEUTROPHILS % (MANUAL) 86 %
[2018-09-27] MEDS ORDERED: VANCOMYCIN 2000 MG/NS 500 ML IVPB IV NR ×2 (13:30)
[2018-09-27] MEDS ORDERED: RT-ALBUTEROL/IPRATROPIUM 3 ML (DUONEB) VIAL INH PRN (13:30)
[2018-09-27 13:31] LABS: CALCIUM 9.3 MG/DL (8.5-10.1); CREATININE SERUM 2.09 MG/DL (0.60-1.30); MAGNESIUM 2.5 MG/DL (1.8-2.4); PHOSPHORUS 5.5 MG/DL (2.3-4.7); POTASSIUM 5.7 MMOL/L (3.6-5.0)
[2018-09-27] MEDS: RT-ALBUTEROL/IPRATROPIUM 3 ML (DUONEB) VIAL INH SCH ×3 (13:31→22:10)
[2018-09-27] MEDS: ENOXAPARIN 100 MG/1 ML (LOVENOX) SYR SC SCH (13:49)
[2018-09-27] MEDS: HYDROCORTISONE 100 MG/2 ML (Solu-CORTEF) VIAL IV SCH ×2 (13:49→22:42)
[2018-09-27] MEDS: NOREPINEPHRINE 4 MG in NS (IVPB) 250 ML IV SCH ×2 (13:53→14:16)
[2018-09-27 13:59] LABS: ABG BASE EXCESS 0.3 MMOL/L (-2.5-2.5); ABG OXYGEN SATURATION 99 % (94-100); ABG PCO2 50 MMHG (35-45); ABG PO2 106 MMHG (79-93); ABG TCO2 27.1 MMOL/L (21.0-31.0)
[2018-09-27 14:02] LABS: ABG PH 7.33 (7.37-7.43); ALLENS TEST YES-POS; INSPIRED O2 90%; VENTILATOR YES
[2018-09-27 14:03] LABS: PATIENT TEMP 98.1
[2018-09-27] MEDS ORDERED: METO-395 PO (14:10)
[2018-09-27] MEDS ORDERED: FURO80TA3 PO (14:10)
--- NOTE | 2018-09-27 14:17 | Diagnostic Imaging Report ---
PROCEDURE: US Venous Lower Ext Darrell. TECHNIQUE: Multiple Real-time grayscale images were obtained over the lower extremities in various projections, bilaterally. Additional duplex Doppler and color Doppler images were also obtained. INDICATION: Sepsis and congestive heart failure. FINDINGS: There is no evidence of a right or left lower extremity DVT. Both lower extremity deep venous systems demonstrate normal compressibility with normal response to augmentation and Valsalva. No fluid collection or mass is seen. IMPRESSION: No evidence of right or left lower extremity DVT. Dictated by: Dictated on workstation # [id number]
--- NOTE | 2018-09-27 14:18 | Diagnostic Imaging Report ---
PROCEDURE: US Renal Bilateral. TECHNIQUE: Multiple Real-time grayscale images were obtained over the kidneys in various projections bilaterally. INDICATION: Sepsis and congestive heart failure. FINDINGS: The right kidney measures 12.0 x 6.2 x 6.7 cm and the left kidney measures 11.7 x 5.2 x 5.3 cm. The cortical thickness and echogenicity appear normal. No calculus or hydronephrosis is seen. There is a cyst involving the right kidney measuring approximately 3.3 cm in diameter. The bladder is decompressed by a Oliveros catheter. IMPRESSION: Right renal cyst. The study is otherwise unremarkable. Dictated by: Dictated on workstation # [id number]
[2018-09-27] MEDS ORDERED: DEXMEDETOMIDINE INJECTION 1,000 MCG in NS (IVPB) 240 ML IV SCH (14:30)
[2018-09-27] MEDS ORDERED: DEXMEDETOMIDINE INJECTION 1,000 MCG in NS (IVPB) 250 ML IV SCH (14:30)
[2018-09-27] MEDS ORDERED: SOD POLYSTERENE 15 GM/60 ML (KAYEXALATE) UNIT DOSE PO NR (14:45)
[2018-09-27] MEDS ORDERED: inSUlin (REGULAR) HUMAN 1 UNIT/0.01 ML (CHARGE PER UNIT) SC NR (14:45)
[2018-09-27] MEDS ORDERED: DEXTROSE 50% 50 ML (IMS) SYR IV NR ×2 (14:45→15:15)
[2018-09-27] MEDS: VASOPRESSIN INJECTION 20 UNIT in NS (IVPB) 50 ML IV SCH ×2 (15:00→22:53)
[2018-09-27] MEDS ORDERED: DEXTROSE 50% 50 ML (IMS) SYR IV ONE (15:15)
--- NOTE | 2018-09-27 16:14 | History & Physical-Hospitalist ---
History of Present Illness HPI/Chief Complaint The patient is a 62-year-old white male. He is on the ventilator and deeply sedated. History is gleaned from multiple sources. He apparently went to Dr. Alejandro's office this morning and was immediately sent to the emergency room because of his obvious distress. SaO2 was said to be in the 60s at the office. He apparently had been troubled by shortness of breath for a couple of weeks and it had been increasing considerably over the past several days. The findings in the emergency room strongly suggest a mixed etiology. His initial temperature was 100.6 pulse was 134 and BP was 71. Laboratory showed an initial 16.2 white count which in a repeat some 2 hours later was 19,500. Initially there were 76 percent granulocytes and on the second 93 percent. Creatinine was 1.9 at presentation. BNP 1115. Troponin was less than 0.3. Initial blood gas showed a pH of 7.13 PCO2 of 89 PaO2 of 101 on oxygen bicarbonate was 28. Lactic acid was open. Subsequently an echocardiogram has been repeated today which showed an ejection fraction of 20-25 percent and a pulmonary artery pressure of 45 L of mercury which is very similar to a study done previously this year. Source: RN/, old records Exam Limitations: other (intubated and sedated) Date Seen 09/27/18 Time Seen by a Provider: 16:14 Attending Physician Gunnar Padilla MD PCP Perez Alejandro MD Referring Physician Date of Admission Sep 27, 2018 at 11:51 Home Medications & Allergies Home Medications Reviewed patient Home Medication Reconciliation performed by pharmacy medication reconciliations communications engineering technician and/or nursing. Patients Allergies have been reviewed. Allergies Allergies Coded Allergies Penicillins (Verified Allergy, Unknown, 08/26/18) Past Nsjovhg-Hdrywb-Nfaznz Hx Past Med/Social Hx: Reviewed Nursing Past Med/Soc Hx Patient Social History Alcohol Use: Denies Use Recreational Drug Use: No Smoking Status: Never a Smoker Type Used: Smokeless Tobacco Recent Foreign Travel: No Contact w/other who traveled: No Recent Hopitalizations: No Recent Infectious Disease Expo: No Immunizations Up To Date Tetanus Booster (TDap): Unknown Seasonal Allergies Seasonal Allergies: No Past Medical History Surgeries: Abdominal, Cardiac Cardiac: Cardiomyopathy, Hypertension Reproductive: No Sexually Transmitted Disease: No Gastrointestinal: Diverticulosis Psychosocial: Anxiety History of Blood Disorders: No Family History Reviewed Nursing Family Hx No Pertinent Family Hx Review of Systems ROS-Unable to Obtain: intubated and sedated Constitutional: see HPI Physical Exam Physical Exam Vital Signs Vital Signs - First Documented 09/27/18 09/27/18 09/27/18 09:49 09:55 10:40 Temp 100.0 Pulse 120 Resp 48 B/P (MAP) 113/96 (102) Pulse Ox 75 O2 Delivery Non Rebreather O2 Flow Rate 15.00 FiO2 100 Capillary Refill : Less Than 3 Seconds Height, Weight, BMI Height: 6'0.00" Weight: 218lbs. 0.0oz. 98.951329bq; 29.6 BMI Method:Estimated General Appearance: Other Eyes: Bilateral Eye Normal Inspection HEENT: Normal ENT Inspection Neck: Other (JVD is not noted) Respiratory: Lungs Clear Cardiovascular: Other (atrial fibrillation with controlled rate) Gastrointestinal: Other Extremity: Other (minimal pedal edema) Results Results/Procedures Labs Laboratory Tests 09/27/18 10:15 09/27/18 11:30 09/27/18 13:00 Patient resulted labs reviewed. Assessment/Plan Admission Diagnosis 1.nonischemic cardiomyopathy with florid congestive heart failure. 2.atrial fibrillation with initial rapid ventricular response. 3.respiratory failure requiring intubation and ventilation. 4.Sirs without clearcut site of infection Admission Status: Inpatient Order (span 2 midnights) Reason for Inpatient Admission: Severe multi organ systems failure with life-threatening illness GUNNAR PADILLA MD Sep 27, 2018 16:14
[2018-09-27] MEDS: inSUlin ASPART (NovoLOG) 1 UNIT/0.01 ML (CHARGE PER UNIT) SC SCH (16:57)
[2018-09-27] MEDS ORDERED: FLU QUADRIvalent (5+ YOA) 2018-2019 (AFLURIA) 0.5 ML IM ONE (17:15)
[2018-09-27] MEDS: PANTOPRAZOLE 40 MG (PROTONIX) VIAL IV SCH (17:29)
[2018-09-27] MEDS: MEROPENEM 500 MG in NS (IVPB) 100 ML IV SCH (20:31)
[2018-09-27 21:11] LABS: CALCIUM 9.3 MG/DL (8.5-10.1); CREATININE SERUM 1.99 MG/DL (0.60-1.30); MAGNESIUM 2.3 MG/DL (1.8-2.4); PHOSPHORUS 3.6 MG/DL (2.3-4.7); POTASSIUM 4.4 MMOL/L (3.6-5.0)
[2018-09-28] VITALS (34 sets, daily range): BP systolic 84–147; BP diastolic 45–95
[2018-09-28] MEDS ORDERED: DOBUTamine INJECTION 250 MG in NS (IVPB) 250 ML IV SCH ×2
[2018-09-28] MEDS: inSUlin ASPART (NovoLOG) 1 UNIT/0.01 ML (CHARGE PER UNIT) SC SCH ×4 (00:18→17:41)
[2018-09-28 00:40] LABS: TRIGLYCERIDES 52 MG/DL (<150)
[2018-09-28] MEDS: ENOXAPARIN 100 MG/1 ML (LOVENOX) SYR SC SCH (01:32)
[2018-09-28] MEDS: NOREPINEPHRINE 4 MG in NS (IVPB) 250 ML IV SCH ×6 (01:36→22:39)
[2018-09-28] MEDS: RT-ALBUTEROL/IPRATROPIUM 3 ML (DUONEB) VIAL INH SCH ×6 (02:38→22:25)
[2018-09-28] MEDS: MEROPENEM 500 MG in NS (IVPB) 100 ML IV SCH ×3 (03:08→20:12)
[2018-09-28] MEDS: NS IV 1000 ML 1,000 ML IV SCH ×2 (03:09→22:46)
[2018-09-28 03:39] LABS: BASOPHILS % (AUTO) 0 % (0-10); EOSINOPHILS % (AUTO) 0 % (0-10); HEMATOCRIT 42 % (40-54); HEMOGLOBIN 14.4 G/DL (13.3-17.7); LYMPHOCYTES # (AUTO) 0.5 X 10^3 (1.0-4.0); LYMPHOCYTES % (AUTO) 4 % (12-44); MEAN CORPUSCULAR HEMOGLOBIN 31 PG (25-34); MEAN CORPUSCULAR HGB CONC 34 G/DL (32-36); MEAN CORPUSCULAR VOLUME 91 FL (80-99); MEAN PLATELET VOLUME 11.8 FL (7.4-10.4); MONOCYTES # (AUTO) 0.7 X 10^3 (0.0-1.0); MONOCYTES % (AUTO) 5 % (0-12); NEUTROPHILS % (AUTO) 92 % (42-75); PLATELET COUNT 185 10^3/uL (130-400); RED BLOOD COUNT 4.68 10^6/uL (4.35-5.85); RED CELL DISTRIBUTION WIDTH 15.7 % (10.0-14.5); WHITE BLOOD COUNT 14.2 10^3/uL (4.3-11.0)
[2018-09-28 03:46] LABS: ABG BASE EXCESS -2.9 MMOL/L (-2.5-2.5); ABG OXYGEN SATURATION 97 % (94-100); ABG PCO2 40 MMHG (35-45); ABG PH 7.36 (7.37-7.43); ABG PO2 74 MMHG (79-93); ABG TCO2 23.1 MMOL/L (21.0-31.0)
[2018-09-28 03:47] LABS: ALLENS TEST YES-POS; INSPIRED O2 24%; PATIENT TEMP 97.2; VENTILATOR YES
[2018-09-28 04:04] LABS: ALBUMIN 3.8 GM/DL (3.2-4.5); BILIRUBIN,TOTAL 2.3 MG/DL (0.1-1.0); CALCIUM 9.3 MG/DL (8.5-10.1); CREATININE SERUM 1.92 MG/DL (0.60-1.30); MAGNESIUM 2.3 MG/DL (1.8-2.4); PHOSPHORUS 4.6 MG/DL (2.3-4.7); POTASSIUM 4.5 MMOL/L (3.6-5.0); TOTAL PROTEIN 6.5 GM/DL (6.4-8.2)
[2018-09-28] MEDS: HYDROCORTISONE 100 MG/2 ML (Solu-CORTEF) VIAL IV SCH ×3 (05:37→21:58)
--- NOTE | 2018-09-28 05:59 | Pulmonary Progress Note ---
Subjective Time Seen by a Provider: 05:46 Subjective/Events-last exam sedated on vent. at bedside. Sepsis Event Evaluation Height, Weight, BMI Height: 6'0.00" Weight: 218lbs. 0.0oz. 98.985664hl; 29.6 BMI Method:Estimated Focused Exam Lactate Level 09/27/18 11:30: Lactic Acid Level 0.91 Exam Exam Vital Signs Date Time Temp Pulse Resp B/P (MAP) Pulse Ox O2 Delivery O2 Flow Rate FiO2 09/28/18 05:00 113 26 102/93 (96) 100 Mechanical Ventilator 24.00 09/28/18 04:44 115 26 100 35 09/28/18 04:00 97.2 114 25 100/84 (89) 99 Mechanical Ventilator 24.00 09/28/18 04:00 Mechanical Ventilator 35 09/28/18 03:00 114 25 93/71 (78) 100 Mechanical Ventilator 24.00 09/28/18 02:40 120 26 100 30 09/28/18 02:00 111 24 103/82 (89) 100 Mechanical Ventilator 30.00 09/28/18 01:00 108 09/28/18 01:00 117 27 104/82 (89) 100 Mechanical Ventilator 30.00 09/28/18 00:08 120 26 100 35 09/28/18 00:00 Mechanical Ventilator 35 09/28/18 00:00 111 25 116/83 (94) 100 Mechanical Ventilator 30.00 09/27/18 23:00 117 25 98/85 (89) 100 Mechanical Ventilator 35.00 09/27/18 22:11 112 26 100 35 09/27/18 22:00 115 25 102/87 (92) 100 Mechanical Ventilator 35.00 09/27/18 21:00 107 25 116/95 (102) 97 Mechanical Ventilator 35.00 09/27/18 20:15 98 26 96 35 09/27/18 20:00 Mechanical Ventilator 35 09/27/18 20:00 101 26 111/91 (98) 98 Mechanical Ventilator 35.00 09/27/18 19:43 97.8 09/27/18 19:25 Mechanical Ventilator 35.00 09/27/18 19:11 96 26 96 40 09/27/18 19:00 95 09/27/18 19:00 96 25 103/80 (88) 97 Mechanical Ventilator 40.00 09/27/18 18:00 95 34 118/58 (78) 100 Mechanical Ventilator 40.00 09/27/18 17:34 105/47 09/27/18 17:00 98 25 105/90 (95) 100 Mechanical Ventilator 40.00 09/27/18 16:48 98 26 100 60 09/27/18 16:00 Mechanical Ventilator 60 09/27/18 16:00 93 26 116/91 (99) 100 Mechanical Ventilator 60.00 09/27/18 16:00 98.8 09/27/18 15:00 96 26 105/79 (88) 99 Mechanical Ventilator 60.00 09/27/18 14:00 93 26 130/88 (102) 98 Mechanical Ventilator 90.00 09/27/18 13:51 98 09/27/18 13:33 91 26 98 100 09/27/18 13:00 89 09/27/18 13:00 89 25 109/78 (88) 93 Mechanical Ventilator 100.00 09/27/18 12:48 70 26 93 100 09/27/18 12:08 72 16 93 100 09/27/18 12:06 73 09/27/18 12:00 98.9 09/27/18 12:00 Mechanical Ventilator 100 09/27/18 11:57 100.0 64 12 80/67 (71) 89 Mechanical Ventilator 09/27/18 11:45 100.0 67 12 82/66 89 Mechanical Ventilator 09/27/18 10:40 95 18 92 100 09/27/18 10:21 100.6 134 8 144/85 89 Mechanical Ventilator 09/27/18 09:55 75 OxyMask 15.00 09/27/18 09:49 100.0 120 48 113/96 (102) Non Rebreather I & O 09/28/18 07:00 Intake Total 1354 ml Output Total 1750 ml Balance -396 ml Height & Weight Height: 6'0.00" Weight: 218lbs. 0.0oz. 98.551417oi; 29.6 BMI Method:Estimated General Appearance: Other HEENT: Normal ENT Inspection Neck: Other (JVD is not noted) Respiratory: Lungs Clear Cardiovascular: Other (atrial fibrillation with controlled rate) Capillary Refill: Less Than 3 Seconds Gastrointestinal: non tender, soft Extremity: Other (minimal pedal edema) Results Lab Laboratory Tests 09/27/18 10:15 09/27/18 11:30 09/27/18 13:00 09/27/18 20:40 09/28/18 03:25 Assessment/Plan Assessment/Plan Acute respiratory failure -Ventilator management -repeat CXR Pneumonia -Continue vanco merrem -Pt is currently on 12 peep and 100% Fi02 - CVP monitoring -Strong cultures pending -check influenza Acute renal failure with hyperkalemia -Repeat labs Hx of CHF EF 20% -Check stat echocardiogram -consult cardiology Afib RVR -Currently on Cardizem gtt -Start heparin gtt Hypotension secondary to sedation and intubation r/o septic shock -Will be gentle with IVF secondary to severe respiratory failure/hypoxia -wean down Diprivan and start Precedex -Currently on Levophed and dopamine gtt -CVP montioring RONNELL COCHRAN DO Sep 28, 2018 05:59
[2018-09-28] MEDS: PROPOFOL DRIP (ICU) 100 ML IV SCH ×5 (06:21→20:46)
[2018-09-28] MEDS ORDERED: NS (IVPB) 100 ML ONE (06:25)
[2018-09-28] MEDS ORDERED: DILTIAZEM 25 MG/5 ML INJ (CARDIZEM) VIAL IVP ONE ×2 (06:30→07:45)
[2018-09-28] MEDS ORDERED: DILTIAZEM 25 MG/5 ML INJ (CARDIZEM) VIAL ONE (06:31)
[2018-09-28] MEDS: DILTIAZEM INJECTION 125 MG in NS (IVPB) 100 ML IV SCH ×3 (06:45→20:22)
[2018-09-28] MEDS ORDERED: D5W 100 ML IVPB 100 ML IV ONE (07:04)
[2018-09-28] MEDS ORDERED: AMIODARONE 150 MG/3 ML (CORDARONE) AMP IV ONE (07:04)
[2018-09-28] MEDS ORDERED: AMIODARONE INJECTION 450 MG in D5W IV SOLUTION (EXCEL) 250 ML IV SCH (07:30)
--- NOTE | 2018-09-28 07:43 | Diagnostic Imaging Report ---
Clinical indication: Recheck ET tube placement. Exam: Portable chest x-ray semiupright view. Comparison: Portable chest x-ray dated 09/27/2018. Findings: ET tube seen in good position with tip roughly 7.8 cm from the expected region of the janet and is at the T3 vertebral body level. Right IJ central line seen in stable position involving the upper aspect of the superior vena cava. There is improved aeration of both lungs. There is persistent consolidation in the left lung base and mild airspace opacity involving the inferior right perihilar region which may represent atelectasis versus infiltrate. Stable cardiomegaly with mild pulmonary vasculature prominence centrally which has improved. There is no pleural effusion or pneumothorax. The remainder of this exam shows no significant interval change compared to the prior study of comparison. Impression: 1: There is interval improved aeration of both lungs with residual consolidation left lung base and mild airspace opacity in the inferior right perihilar region which may represent atelectasis versus infiltrate. 2: There is cardiomegaly with mild pulmonary vasculature centrally which has slightly improved. 3: Lines and tubes in good position, as described above. Dictated by: Dictated on workstation # [id number]
[2018-09-28] MEDS ORDERED: AMIODARONE FOR BOLUS 150 MG in D5W 100 ML IVPB 100 ML IV ONE (07:45)
[2018-09-28] MEDS: PANTOPRAZOLE 40 MG (PROTONIX) VIAL IV SCH (08:02)
[2018-09-28] MEDS ORDERED: PANTOPRAZOLE 40 MG (PROTONIX) VIAL IV SCH (09:00)
[2018-09-28] MEDS ORDERED: DIGOXIN 0.25 MG/ML (LANOXIN) 2 ML AMP IV NR ×2 (09:30→12:30)
[2018-09-28] MEDS ORDERED: FUROSEMIDE 40 MG/4 ML INJ (LASIX) IVP NR (09:30)
--- NOTE | 2018-09-28 09:32 | Progress Note-Cardiology ---
Cardiology SOAP Progress Note Subjective: Intubated, sedated, and unable to provide history Objective: I&O/Vital Signs 09/27/18 09/27/18 09/27/18 09/28/18 22:00 22:11 23:00 00:00 Pulse 115 112 117 111 Resp 25 26 25 25 B/P (MAP) 102/87 (92) 98/85 (89) 116/83 (94) Pulse Ox 100 100 100 100 O2 Delivery Mechanical Ventilator Mechanical Ventilator Mechanical Ventilator O2 Flow Rate 35.00 35.00 30.00 FiO2 35 09/28/18 09/28/18 09/28/18 09/28/18 00:00 00:08 01:00 01:00 Pulse 120 117 108 Resp 26 27 B/P (MAP) 104/82 (89) Pulse Ox 100 100 O2 Delivery Mechanical Ventilator Mechanical Ventilator O2 Flow Rate 30.00 FiO2 35 35 09/28/18 09/28/18 09/28/18 09/28/18 02:00 02:40 03:00 04:00 Pulse 111 120 114 Resp 24 26 25 B/P (MAP) 103/82 (89) 93/71 (78) Pulse Ox 100 100 100 O2 Delivery Mechanical Ventilator Mechanical Ventilator Mechanical Ventilator O2 Flow Rate 30.00 24.00 FiO2 30 35 09/28/18 09/28/18 09/28/18 09/28/18 04:00 04:44 05:00 06:00 Temp 97.2 Pulse 114 115 113 112 Resp 25 26 26 25 B/P (MAP) 100/84 (89) 102/93 (96) 129/95 (106) Pulse Ox 99 100 100 100 O2 Delivery Mechanical Ventilator Mechanical Ventilator Mechanical Ventilator O2 Flow Rate 24.00 24.00 24.00 FiO2 35 09/28/18 09/28/18 09/28/18 09/28/18 06:06 07:00 07:00 07:30 Pulse 117 152 152 Resp 26 26 B/P (MAP) 84/74 (77) Pulse Ox 100 98 O2 Delivery Mechanical Ventilator Mechanical Ventilator O2 Flow Rate 24.00 FiO2 24 24 09/28/18 08:00 Pulse 130 Resp 27 B/P (MAP) 109/91 (97) Pulse Ox 96 O2 Delivery Mechanical Ventilator O2 Flow Rate 24.00 09/28/18 00:00 Intake Total 900 ml Output Total 1250 ml Balance -350 ml Weight (Pounds): 217 Weight (Ounces): 0.8 Weight (Calculated Kilograms): 98.235948 Constitutional: other (on mech vent) Respiratory: other (good bilat air entry; basal coarse and fine crackles; large -airway rhonchi) Cardiovascular: irregularly irregular, S1 and S2, systolic murmur (soft ZOE at card base) Gastrointestional: soft; No guarding, No rebound; audible bowel sounds Extremities: swelling (mild to mod bilat pitting edema of the legs); No clubbing, No cyanosis Neurologic/Psychiatric: other (unable to coperate with a neuro exam at this time) Skin: No rash on exposed areas, No ulcerations on exposed areas Results/Procedures: Labs Laboratory Tests 09/27/18 10:01: Blood Gas Puncture Site RT RAD, Blood Gas Patient Temperature 100.0, Arterial Blood pH 7.13*L, Arterial Blood Partial Pressure CO2 89*H, Arterial Blood Partial Pressure O2 101H, Arterial Blood HCO3 28H, Arterial Blood Total CO2 30.1 , Arterial Blood Oxygen Saturation 96, Arterial Blood Base Excess -0.7, Michael Test YES-POS, Blood Gas Ventilator Setting YES, Blood Gas Inspired Oxygen 100% 09/27/18 10:13: Urine Color AMBERH, Urine Clarity CLEAR, Urine pH 5, Urine Specific [place] 1.020, Urine Protein 3+H, Urine Glucose (UA) NEGATIVE, Urine Ketones NEGATIVE, Urine Nitrite NEGATIVE, Urine Bilirubin NEGATIVE, Urine Urobilinogen 1, Urine Leukocyte Esterase NEGATIVE, Urine RBC (Auto) 2+H, Urine RBC 5-10H, Urine WBC 0- 2, Urine Crystals NONE, Urine Bacteria TRACE, Urine Casts PRESENT, Urine Hyaline Casts >50H, Urine Mucus SMALLH, Urine Culture Indicated NO 09/27/18 10:15: White Blood Count 16.2H, Red Blood Count 5.22, Hemoglobin 15.7, Hematocrit 48, Mean Corpuscular Volume 93, Mean Corpuscular Hemoglobin 30, Mean Corpuscular Hemoglobin Concent 32, Red Cell Distribution Width 15.6H, Platelet Count 204, Mean Platelet Volume 11.9H, Neutrophils (%) (Auto) 76H, Lymphocytes (%) (Auto) 13, Monocytes (%) (Auto) 9, Eosinophils (%) (Auto) 2, Basophils (%) (Auto) 0, Neutrophils # (Auto) 12.3H, Lymphocytes # (Auto) 2.1, Monocytes # (Auto) 1.4H, Eosinophils # (Auto) 0.2, Basophils # (Auto) 0.1, Neutrophils % (Manual) 78, Lymphocytes % (Manual) 11, Monocytes % (Manual) 7, Eosinophils % (Manual) 2, Basophils % (Manual) 1, Band Neutrophils 1, Anisocytosis SLIGHT 09/27/18 11:30: Prothrombin Time 22.0H, INR Comment 1.9H, Activated Partial Thromboplast Time 31 , Sodium Level 138, Potassium Level 5.5H, Chloride Level 103, Carbon Dioxide Level 26, Anion Gap 9, Blood Urea Nitrogen 32H, Creatinine 1.90H, Estimat Glomerular Filtration Rate 36, BUN/Creatinine Ratio 17, Glucose Level 159H, Lactic Acid Level 0.91, Calcium Level 9.2, Corrected Calcium 9.1, Total Bilirubin 2.2H, Aspartate Amino Transf (AST/SGOT) 26, Alanine Aminotransferase ( ALT/SGPT) 28, Alkaline Phosphatase 92, Troponin I < 0.30, Total Protein 7.0, Albumin 4.1 09/27/18 12:35: Blood Gas Puncture Site RT RAD, Blood Gas Patient Temperature 98.9, Arterial Blood pH 7.17*L, Arterial Blood Partial Pressure CO2 78*H, Arterial Blood Partial Pressure O2 97H, Arterial Blood HCO3 28H, Arterial Blood Total CO2 29.9 , Arterial Blood Oxygen Saturation 96, Arterial Blood Base Excess -0.1, Michael Test YES-POS, Blood Gas Ventilator Setting YES, Blood Gas Inspired Oxygen 100% 09/27/18 13:00: White Blood Count 19.5H, Red Blood Count 5.00, Hemoglobin 15.1, Hematocrit 46, Mean Corpuscular Volume 92, Mean Corpuscular Hemoglobin 30, Mean Corpuscular Hemoglobin Concent 33, Red Cell Distribution Width 15.8H, Platelet Count 219, Mean Platelet Volume 11.6H, Neutrophils (%) (Auto) 93H, Lymphocytes (%) (Auto) 3L, Monocytes (%) (Auto) 4, Eosinophils (%) (Auto) 0, Basophils (%) (Auto) 0, Neutrophils # (Auto) 18.2H, Lymphocytes # (Auto) 0.5L, Monocytes # (Auto) 0.8, Eosinophils # (Auto) 0.1, Basophils # (Auto) 0.0, Neutrophils % (Manual) 86, Lymphocytes % (Manual) 5, Monocytes % (Manual) 3, Eosinophils % (Manual) 0, Basophils % (Manual) 0, Band Neutrophils 6, Anisocytosis SLIGHT, Sodium Level 137, Potassium Level 5.7H, Chloride Level 103, Carbon Dioxide Level 26, Anion Gap 8, Blood Urea Nitrogen 33H, Creatinine 2.09H, Estimat Glomerular Filtration Rate 33, BUN/Creatinine Ratio 16, Glucose Level 172H, Calcium Level 9.3, Phosphorus Level 5.5H, Magnesium Level 2.5H, B-Type Natriuretic Peptide 1115.6H 09/27/18 13:50: Blood Gas Puncture Site RT BRACHIAL, Blood Gas Patient Temperature 98.1, Arterial Blood pH 7.33*L, Arterial Blood Partial Pressure CO2 50H, Arterial Blood Partial Pressure O2 106H, Arterial Blood HCO3 26, Arterial Blood Total CO2 27.1, Arterial Blood Oxygen Saturation 99, Arterial Blood Base Excess 0.3, Michael Test YES-POS, Blood Gas Ventilator Setting YES, Blood Gas Inspired Oxygen 90% 09/27/18 16:37: Glucometer 190H 09/27/18 20:40: Sodium Level 139, Potassium Level 4.4, Chloride Level 104, Carbon Dioxide Level 23, Anion Gap 12, Blood Urea Nitrogen 36H, Creatinine 1.99H, Estimat Glomerular Filtration Rate 34, BUN/Creatinine Ratio 18, Glucose Level 161H, Calcium Level 9.3, Phosphorus Level 3.6, Magnesium Level 2.3, Troponin I < 0.30 09/28/18 00:15: Troponin I < 0.30, Triglycerides Level 52 09/28/18 00:17: Glucometer 160H 09/28/18 03:25: Sodium Level 140, Potassium Level 4.5, Chloride Level 106, Carbon Dioxide Level 21, Anion Gap 13, Blood Urea Nitrogen 39H, Creatinine 1.92H, Estimat Glomerular Filtration Rate 36, BUN/Creatinine Ratio 20, Glucose Level 173H, Calcium Level 9.3, Phosphorus Level 4.6, Magnesium Level 2.3, White Blood Count 14.2H, Red Blood Count 4.68, Hemoglobin 14.4, Hematocrit 42, Mean Corpuscular Volume 91, Mean Corpuscular Hemoglobin 31, Mean Corpuscular Hemoglobin Concent 34, Red Cell Distribution Width 15.7H, Platelet Count 185, Mean Platelet Volume 11.8H, Neutrophils (%) (Auto) 92H, Lymphocytes (%) (Auto) 4L, Monocytes (%) (Auto) 5, Eosinophils (%) (Auto) 0, Basophils (%) (Auto) 0, Neutrophils # (Auto) 13.0H, Lymphocytes # (Auto) 0.5L, Monocytes # (Auto) 0.7, Eosinophils # (Auto) 0.0, Basophils # (Auto) 0.0, Corrected Calcium 9.5, Total Bilirubin 2.3H, Aspartate Amino Transf (AST/SGOT) 15, Alanine Aminotransferase (ALT/SGPT) 26, Alkaline Phosphatase 83, Total Protein 6.5, Albumin 3.8 09/28/18 03:35: Blood Gas Puncture Site R RAD, Blood Gas Patient Temperature 97.2, Arterial Blood pH 7.36L, Arterial Blood Partial Pressure CO2 40, Arterial Blood Partial Pressure O2 74L, Arterial Blood HCO3 22L, Arterial Blood Total CO2 23.1, Arterial Blood Oxygen Saturation 97, Arterial Blood Base Excess -2.9L, Michael Test YES-POS, Blood Gas Ventilator Setting YES, Blood Gas Inspired Oxygen 24% Microbiology 09/27/18 Influenza Types A,B Antigen (LADI) - Final, Complete A/P: Assessment: Acute resp failure, multifactorial (see below) Ac systolic CHF due to nonischemic cardiomyopathy. Echo of 09/27/18 showed LVEF 20-25% that is unchanged compared to echo of Aug 2018, grade III diastolic dysfunction, biatrial enlargement, PASP 45 mmHg (unchanged compared to Aug 2018 study) Pneumonia with sepsis and septic shock PAF, vent rate rapid today Card cath of 2013: no significant CAD, LVEF 40-45% Ac renal failure of undetermined etiology, possibly ATN due to hypotension Borderline DM II Tobacco chewing, chronic H/o noncompliance Plan: * Complex management * D/c dobutamine in effort to control vent response to A Fib * D/c amiodarone (reason: reduce risk of cardioversion, because previous anticoag status is unclear) * Add dig (reason: rapid heart rate) * Reduce Lovenox (reason: hematuria and ac renal failure) * Furosemide to treat decomp CHF * I discussed his case with Dr Dudley of the Pulm and ICU Sv[facility] * ICU and Med S[facility] managing pneumonia, sepsis and ac renal failure VIDYA VERDE MD FACP [facility] Sep 28, 2018 09:32
--- NOTE | 2018-09-28 10:09 | Anesthesia-Procedure Note ---
Procedures/Interventions Procedure Start/Stop/Diagnosis Date of Procedure: Sep 28, 2018 Start Time: 09:41 Stop Time: 09:50 Arterial Line Arterial Line Catheter: 20G Type: Radial Location: Right Procedure: prepped, draped in sterile fashion, good wave-form was obtained, patient tolerated procedure well, no immediate complications, post procedure area cleaned, post procedure dressing applied PASQUALE BUENO CRNA Sep 28, 2018 10:09
--- NOTE | 2018-09-28 11:00 | Progress Note-Hospitalist ---
Subjective HPI/CC On Admission Date Seen by Provider: Sep 28, 2018 Time Seen by Provider: 10:00 The patient is a 62-year-old white male. He is on the ventilator and deeply sedated. History is gleaned from multiple sources. He apparently went to Dr. Alejandro's office this morning and was immediately sent to the emergency room because of his obvious distress. SaO2 was said to be in the 60s at the office. He apparently had been troubled by shortness of breath for a couple of weeks and it had been increasing considerably over the past several days. The findings in the emergency room strongly suggest a mixed etiology. His initial temperature was 100.6 pulse was 134 and BP was 71. Laboratory showed an initial 16.2 white count which in a repeat some 2 hours later was 19,500. Initially there were 76 percent granulocytes and on the second 93 percent. Creatinine was 1.9 at presentation. BNP 1115. Troponin was less than 0.3. Initial blood gas showed a pH of 7.13 PCO2 of 89 PaO2 of 101 on oxygen bicarbonate was 28. Lactic acid was open. Subsequently an echocardiogram has been repeated today which showed an ejection fraction of 20-25 percent and a pulmonary artery pressure of 45 L of mercury which is very similar to a study done previously this year. Subjective/Events-last exam Patient becoming more and more complicated Remains intubated Experienced atrial fibrillation with rapid ventricular response requiring Cardizem and amiodarone and now amiodarone has been discontinued Levophed maintaining blood pressure of 110 Vasopressin digoxin Lasix dipper van and Precedex maintained Hematuria noted in Oliveros catheter so Lovenox was decreased to once a day of 100 mg subcutaneous Updated son and at the bedside Very critical situation given the fact of ejection fraction of 20 percent Focused Exam Lactate Level 09/27/18 11:30: Lactic Acid Level 0.91 Objective Exam Vital Signs Vital Signs Date Time Temp Pulse Resp B/P (MAP) Pulse Ox O2 Delivery O2 Flow Rate FiO2 09/28/18 10:00 111 27 110/56 (74) 98 Mechanical Ventilator 24.00 09/28/18 09:54 24 09/28/18 04:00 97.2 Capillary Refill : Less Than 3 Seconds General Appearance: No Apparent Distress, WD/WN, Chronically ill, Obese, Other (edated) Respiratory: Chest Non Tender, No Accessory Muscle Use, No Respiratory Distress , Crackles, Decreased Breath Sounds, Other (intubated) Cardiovascular: No Gallop, No JVD, No Murmur, Normal Peripheral Pulses, Irregularly Irregular, Tachycardia Extremity: Normal Capillary Refill, Normal Inspection, Normal Range of Motion, Non Tender, No Calf Tenderness, Pedal Edema Neurologic/Psychiatric: Other (sedated) Skin: Normal Color, Warm/Dry Results/Procedures Lab Laboratory Tests 09/27/18 11:30 09/27/18 13:00 09/27/18 20:40 09/28/18 03:25 Patient resulted labs reviewed. Assessment/Plan Assessment and Plan Assess & Plan/Chief Complaint Assessment: Ventilator dependent respiratory failure Bilateral pneumonia Sepsis Congestive heart failure ejection fraction 20 percent Hematuria decreasing Lovenox Atrial fibrillation with rapid ventricular response requiring Cardizem drip Hypotension requiring pressor therapy Volume overload requiring Lasix IV Acute renal failure Hypertension as an outpatient Gout Obesity Plan: Appreciate cardiology and pulmonology expertise Critical status Multisystem organ failure noted Guarded prognosis Updated family Diagnosis/Problems Diagnosis/Problems (1) Respiratory failure with hypercapnia Status: Acute Qualifiers: Chronicity: acute Qualified Codes: J96.02 - Acute respiratory failure with hypercapnia (2) Atrial fibrillation with rapid ventricular response Status: Acute (3) Sepsis Status: Acute Qualifiers: Sepsis type: sepsis due to unspecified organism Qualified Codes: A41.9 - Sepsis, unspecified organism (4) Hypotension Status: Acute Qualifiers: Hypotension type: unspecified hypotension type Qualified Codes: I95.9 - Hypotension, unspecified (5) Hematuria Status: Acute Qualifiers: Hematuria type: gross Qualified Codes: R31.0 - Gross hematuria (6) Multisystem organ failure Status: Acute (7) In guarded condition Status: Acute (8) Acute heart failure Status: Acute Qualifiers: Heart failure type: systolic Qualified Codes: I50.21 - Acute systolic ( congestive) heart failure (9) CAP (community acquired pneumonia) Status: Acute Qualifiers: Laterality: unspecified laterality Qualified Codes: J18.9 - Pneumonia, unspecified organism (10) PANDA (acute kidney injury) Status: Acute (11) Cardiomyopathy Status: Chronic Qualifiers: Cardiomyopathy type: unspecified Qualified Codes: I42.9 - Cardiomyopathy, unspecified (12) Non-compliance Status: Acute Clinical Quality Measures DVT/VTE Risk/Contraindication: Risk Factor Score Per Nursin RFS Level Per Nursing on Admit: 4+=Very High LARIOS,MARISA DO Sep 28, 2018 11:00
--- NOTE | 2018-09-28 11:37 | Physical Therapy Progress Note ---
Therapy Progress Note Eval received and chart reviewed. Patient is intubated currently. Will await new orders when patient is more medically appropriate. DEANA OCONNELL PT Sep 28, 2018 11:37
--- NOTE | 2018-09-28 11:45 | Occ Therapy Progress Note ---
Therapy Progress Note Pt on vent and sedated. Will follow for evaluation when he is more able to participate. GIFTY ROSE OT Sep 28, 2018 11:45
[2018-09-28] MEDS ORDERED: VANCOMYCIN 1500 MG/NS 500 ML IVPB IV SCH ×2 (13:30)
[2018-09-28] MEDS: fentaNYL INJECTION 1,250 MCG in NS (IVPB) 250 ML IV SCH (15:23)
[2018-09-28] MEDS: VASOPRESSIN INJECTION 20 UNIT in NS (IVPB) 50 ML IV SCH ×2 (15:29→22:59)
[2018-09-29] VITALS (36 sets, daily range): BP systolic 103–153; BP diastolic 52–70
[2018-09-29] MEDS: PROPOFOL DRIP (ICU) 100 ML IV SCH ×7 (00:25→21:46)
[2018-09-29] MEDS: inSUlin ASPART (NovoLOG) 1 UNIT/0.01 ML (CHARGE PER UNIT) SC SCH ×4 (00:32→18:30)
[2018-09-29] MEDS: RT-ALBUTEROL/IPRATROPIUM 3 ML (DUONEB) VIAL INH SCH ×6 (02:06→22:17)
[2018-09-29] MEDS: NOREPINEPHRINE 4 MG in NS (IVPB) 250 ML IV SCH ×2 (02:17→14:24)
[2018-09-29 03:21] LABS: BASOPHILS % (AUTO) 0 % (0-10); EOSINOPHILS % (AUTO) 0 % (0-10); HEMATOCRIT 42 % (40-54); LYMPHOCYTES # (AUTO) 0.6 X 10^3 (1.0-4.0); LYMPHOCYTES % (AUTO) 2 % (12-44); MEAN CORPUSCULAR HEMOGLOBIN 30 PG (25-34); MEAN CORPUSCULAR HGB CONC 33 G/DL (32-36); MEAN CORPUSCULAR VOLUME 91 FL (80-99); MEAN PLATELET VOLUME 11.2 FL (7.4-10.4); MONOCYTES # (AUTO) 1.6 X 10^3 (0.0-1.0); MONOCYTES % (AUTO) 6 % (0-12); NEUTROPHILS % (AUTO) 92 % (42-75); PLATELET COUNT 231 10^3/uL (130-400); RED BLOOD COUNT 4.63 10^6/uL (4.35-5.85); WHITE BLOOD COUNT 26.1 10^3/uL (4.3-11.0)
[2018-09-29 03:24] LABS: ABG BASE EXCESS 0.3 MMOL/L (-2.5-2.5); ABG OXYGEN SATURATION 91 % (94-100); ABG PCO2 41 MMHG (35-45); ABG PO2 56 MMHG (79-93); ABG TCO2 25.9 MMOL/L (21.0-31.0); ALLENS TEST ART LINE
[2018-09-29 03:25] LABS: INSPIRED O2 25%; PATIENT TEMP 98.7; VENTILATOR YES
[2018-09-29] MEDS: DILTIAZEM INJECTION 125 MG in NS (IVPB) 100 ML IV SCH ×2 (03:36→14:24)
[2018-09-29 03:42] LABS: ALBUMIN 3.8 GM/DL (3.2-4.5); BILIRUBIN,TOTAL 1.4 MG/DL (0.1-1.0); CALCIUM 9.1 MG/DL (8.5-10.1); CREATININE SERUM 1.68 MG/DL (0.60-1.30); MAGNESIUM 2.4 MG/DL (1.8-2.4); PHOSPHORUS 3.3 MG/DL (2.3-4.7); POTASSIUM 4.1 MMOL/L (3.6-5.0); TOTAL PROTEIN 6.4 GM/DL (6.4-8.2)
[2018-09-29] MEDS: MEROPENEM 500 MG in NS (IVPB) 100 ML IV SCH ×4 (03:49→21:40)
[2018-09-29 03:58] LABS: BAND NEUTROPHILS 2 %; BASOPHILS % (MANUAL) 0 %; EOSINOPHILS % (MANUAL) 0 %; LYMPHOCYTES % (MANUAL) 1 %; MONOCYTES % (MANUAL) 3 %; NEUTROPHILS % (MANUAL) 91 %; REACTIVE LYMPHOCYTES 3 %
[2018-09-29 03:59] LABS: ANISOCYTOSIS SLIGHT; POLYCHROMASIA SLIGHT; TOXIC GRANULATION/VACUOLAZATIO 1+
[2018-09-29] MEDS: HYDROCORTISONE 100 MG/2 ML (Solu-CORTEF) VIAL IV SCH ×3 (05:18→21:40)
--- NOTE | 2018-09-29 05:52 | Pulmonary Progress Note ---
Subjective Time Seen by a Provider: 05:50 Subjective/Events-last exam Sedated on vent. at bedside. All questions answered. Sepsis Event Evaluation Height, Weight, BMI Height: 6'0.00" Weight: 217lbs. 0.8oz. 98.610047jc; 29.6 BMI Method:Estimated Focused Exam Lactate Level 09/27/18 11:30: Lactic Acid Level 0.91 Exam Exam Vital Signs Date Time Temp Pulse Resp B/P (MAP) Pulse Ox O2 Delivery O2 Flow Rate FiO2 09/29/18 04:06 92 26 96 21 09/29/18 04:00 Mechanical Ventilator 28 09/29/18 04:00 85 26 142/65 (90) 96 Mechanical Ventilator 25.00 09/29/18 03:35 98.9 09/29/18 03:00 96 27 133/65 (87) 95 Mechanical Ventilator 25.00 09/29/18 02:12 86 28 141/63 (89) 96 Mechanical Ventilator 25.00 09/29/18 02:06 94 26 97 25 09/29/18 02:00 92 34 147/65 (92) 97 Mechanical Ventilator 28.00 09/29/18 01:00 93 09/29/18 01:00 93 25 139/70 (93) 87 Mechanical Ventilator 28.00 09/29/18 00:30 92 27 90 28 09/29/18 00:25 Mechanical Ventilator 09/29/18 00:00 98 26 153/68 (96) 91 Mechanical Ventilator 28.00 09/29/18 00:00 98.3 09/29/18 00:00 Mechanical Ventilator 28 09/28/18 23:00 101 25 147/67 (93) 91 Mechanical Ventilator 28.00 09/28/18 22:25 100 27 95 28 09/28/18 22:00 100 27 130/56 (80) 93 Mechanical Ventilator 28.00 09/28/18 21:00 107 27 122/54 (76) 93 Mechanical Ventilator 28.00 09/28/18 20:46 120/55 09/28/18 20:00 Mechanical Ventilator 28 09/28/18 20:00 111 27 117/54 (75) 92 Mechanical Ventilator 28.00 09/28/18 19:39 Mechanical Ventilator 28.00 09/28/18 19:29 99.0 106 28 121/56 (77) 90 Mechanical Ventilator 24.00 09/28/18 19:27 104 27 90 28 09/28/18 19:00 108 09/28/18 19:00 108 26 112/51 (71) 94 Mechanical Ventilator 24.00 09/28/18 18:27 112 28 94 24 09/28/18 17:00 115 28 104/55 (71) 94 Mechanical Ventilator 24.00 09/28/18 16:00 114 29 133/62 (85) 96 Mechanical Ventilator 24.00 09/28/18 15:57 126 29 97 24 09/28/18 15:40 Mechanical Ventilator 24 09/28/18 15:00 118 114/58 (76) 94 Mechanical Ventilator 24.00 09/28/18 14:02 123 31 95 24 09/28/18 14:00 121 29 103/57 (72) 94 Mechanical Ventilator 24.00 09/28/18 13:00 125 09/28/18 13:00 125 27 110/48 (68) 97 Mechanical Ventilator 24.00 09/28/18 13:00 98.8 09/28/18 12:03 104/47 09/28/18 12:00 Mechanical Ventilator 24 09/28/18 12:00 124 29 85/45 (58) 97 Mechanical Ventilator 24.00 09/28/18 11:00 117 28 95/51 (66) 96 Mechanical Ventilator 24.00 09/28/18 10:00 111 27 110/56 (74) 98 Mechanical Ventilator 24.00 09/28/18 09:54 110 27 98 24 09/28/18 09:00 116 29 95/68 (77) 96 Mechanical Ventilator 24.00 09/28/18 08:00 130 27 109/91 (97) 96 Mechanical Ventilator 24.00 09/28/18 07:30 Mechanical Ventilator 24 09/28/18 07:00 152 26 84/74 (77) 98 Mechanical Ventilator 24.00 09/28/18 07:00 152 09/28/18 06:06 117 26 100 24 09/28/18 06:00 112 25 129/95 (106) 100 Mechanical Ventilator 24.00 I & O 09/29/18 07:00 Intake Total 4483 ml Output Total 2125 ml Balance 2358 ml Height & Weight Height: 6'0.00" Weight: 217lbs. 0.8oz. 98.581303ad; 29.6 BMI Method:Estimated General Appearance: Other (sedated on vent ) HEENT: Normal ENT Inspection Neck: Other (JVD is not noted) Respiratory: Decreased Breath Sounds Cardiovascular: Other (atrial fibrillation with controlled rate) Capillary Refill: Less Than 3 Seconds Gastrointestinal: non tender, soft Extremity: Other (minimal pedal edema) Neurologic/Psychiatric: Other (sedated) Skin: Normal Color, Warm/Dry Results Lab Laboratory Tests 09/27/18 10:15 09/27/18 11:30 09/27/18 13:00 09/27/18 20:40 09/28/18 03:25 09/29/18 03:10 Assessment/Plan Assessment/Plan Acute respiratory failure -Ventilator management -will start weaning vent tomorrow if cardiac status is improved. Pneumonia with sepsis -Continue merrem d/c vanco -MRSA swab is negative -Pt is currently on 5 peep and 21% Fi02 - CVP monitoring -Strong cultures pending influenza negative Acute renal failure - monitor -Gentle hydration secondary to CHF Hx of CHF Echo of 09/27/18 showed LVEF 20-25% -grade III diastolic dysfunction, -cardiology following Afib RVR -Currently on Cardizem gtt Hypotension secondary to sedation and intubation- improved -Will be gentle with IVF secondary to severe respiratory failure/hypoxia -wean down Diprivan and continue fentanyl, Precedex -Currently on Levophed -CVP montioring RONNELL COCHRAN DO Sep 29, 2018 05:52
--- NOTE | 2018-09-29 07:50 | Diagnostic Imaging Report ---
INDICATION: Shortness of breath. Portable chest 3:24 AM FINDINGS: There is an ET tube projecting over the trachea. NG tube projects over the stomach. Right IJ central line tip projects over the SVC. There is cardiomegaly. There is pulmonary vascular congestion. Lungs are clear. IMPRESSION: Cardiomegaly with pulmonary venous hypertension. This appears worse compared to the previous study from 09/27/2018. Dictated by: Dictated on workstation # [id number]
[2018-09-29] MEDS: ENOXAPARIN 100 MG/1 ML (LOVENOX) SYR SC SCH (08:31)
[2018-09-29] MEDS: PANTOPRAZOLE 40 MG (PROTONIX) VIAL IV SCH (08:31)
--- NOTE | 2018-09-29 08:33 | Progress Note-Cardiology ---
Cardiology SOAP Progress Note Subjective: Intubated and sedated. Spouse at the bedside. Objective: I&O/Vital Signs 09/29/18 09/29/18 09/29/18 09/29/18 02:00 02:06 02:12 03:00 Pulse 92 94 86 96 Resp 34 26 28 27 B/P (MAP) 147/65 (92) 141/63 (89) 133/65 (87) Pulse Ox 97 97 96 95 O2 Delivery Mechanical Ventilator Mechanical Ventilator Mechanical Ventilator O2 Flow Rate 28.00 25.00 25.00 FiO2 25 09/29/18 09/29/18 09/29/18 09/29/18 03:35 04:00 04:00 04:06 Temp 98.9 Pulse 85 92 Resp 26 26 B/P (MAP) 142/65 (90) Pulse Ox 96 96 O2 Delivery Mechanical Ventilator Mechanical Ventilator O2 Flow Rate 25.00 FiO2 28 21 09/29/18 09/29/18 09/29/18 09/29/18 05:00 06:00 06:43 07:00 Pulse 92 99 98 98 Resp 25 23 26 B/P (MAP) 134/62 (86) 125/59 (81) Pulse Ox 94 93 92 O2 Delivery Mechanical Ventilator Mechanical Ventilator O2 Flow Rate 25.00 25.00 FiO2 21 09/29/18 09/29/18 09/29/18 09/29/18 07:00 07:38 08:00 08:00 Temp 98.6 Pulse 98 99 Resp 26 23 B/P (MAP) 120/63 (82) 138/75 142/68 (92) Pulse Ox 92 93 O2 Delivery Mechanical Ventilator Mechanical Ventilator Mechanical Ventilator O2 Flow Rate 25.00 25.00 FiO2 21 09/29/18 09/29/18 09/29/18 09/29/18 08:41 09:00 10:00 10:09 Pulse 106 98 99 102 Resp 29 26 25 26 B/P (MAP) 136/65 (88) 134/62 (86) Pulse Ox 92 92 93 92 O2 Delivery Mechanical Ventilator Mechanical Ventilator O2 Flow Rate 25.00 25.00 FiO2 21 21 09/29/18 09/29/18 09/29/18 09/29/18 10:09 11:00 11:22 12:00 Temp 98.1 Pulse 103 Resp 22 B/P (MAP) 137/61 (86) 121/59 Pulse Ox 90 O2 Delivery Mechanical Ventilator Mechanical Ventilator O2 Flow Rate 30.00 30.00 09/29/18 09/29/18 12:00 12:00 Pulse 98 Resp 26 B/P (MAP) 141/60 (87) Pulse Ox 91 96 O2 Delivery Mechanical Ventilator Mechanical Ventilator O2 Flow Rate 30.00 FiO2 30 09/29/18 00:00 Intake Total 3048 ml Output Total 1500 ml Balance 1548 ml Weight (Pounds): 229 Weight (Ounces): 0.8 Weight (Calculated Kilograms): 103.583580 Constitutional: other (on mech vent) Respiratory: lungs clear to auscultation (diminished bases bilat) Cardiovascular: irregularly irregular, S1 and S2, systolic murmur (soft ZOE at card base) Gastrointestional: soft; No guarding, No rebound; audible bowel sounds Extremities: swelling (mild to mod bilat pitting edema of the legs); No clubbing, No cyanosis Neurologic/Psychiatric: other (unable to coperate with a neuro exam at this time) Skin: No rash on exposed areas, No ulcerations on exposed areas Results/Procedures: Labs Laboratory Tests 09/28/18 17:34: Glucometer 190H 09/29/18 00:08: Glucometer 136H 09/29/18 03:10: White Blood Count 26.1H, Red Blood Count 4.63, Hemoglobin 14.0, Hematocrit 42, Mean Corpuscular Volume 91, Mean Corpuscular Hemoglobin 30, Mean Corpuscular Hemoglobin Concent 33, Red Cell Distribution Width 16.0H, Platelet Count 231, Mean Platelet Volume 11.2H, Neutrophils (%) (Auto) 92H, Lymphocytes (%) (Auto) 2L, Monocytes (%) (Auto) 6, Eosinophils (%) (Auto) 0, Basophils (%) (Auto) 0, Neutrophils # (Auto) 24.0H, Lymphocytes # (Auto) 0.6L, Monocytes # (Auto) 1.6H, Eosinophils # (Auto) 0.0, Basophils # (Auto) 0.0, Neutrophils % (Manual) 91, Lymphocytes % (Manual) 1, Monocytes % (Manual) 3, Eosinophils % (Manual) 0, Basophils % (Manual) 0, Band Neutrophils 2, Reactive Lymphocytes 3, Toxic Granulation 1+, Polychromasia SLIGHT, Anisocytosis SLIGHT, Blood Gas Puncture Site R RAD, Blood Gas Patient Temperature 98.7, Arterial Blood pH 7.40, Arterial Blood Partial Pressure CO2 41, Arterial Blood Partial Pressure O2 56L, Arterial Blood HCO3 25, Arterial Blood Total CO2 25.9, Arterial Blood Oxygen Saturation 91L, Arterial Blood Base Excess 0.3, Michael Test ART LINE, Blood Gas Ventilator Setting YES, Blood Gas Inspired Oxygen 25%, Sodium Level 142, Potassium Level 4.1, Chloride Level 110H, Carbon Dioxide Level 23, Anion Gap 9, Blood Urea Nitrogen 41H, Creatinine 1.68H, Estimat Glomerular Filtration Rate 42 , BUN/Creatinine Ratio 24, Glucose Level 164H, Calcium Level 9.1, Corrected Calcium 9.3, Phosphorus Level 3.3, Magnesium Level 2.4, Total Bilirubin 1.4H, Aspartate Amino Transf (AST/SGOT) 13, Alanine Aminotransferase (ALT/SGPT) 21, Alkaline Phosphatase 72, B-Type Natriuretic Peptide 374.2H, Total Protein 6.4, Albumin 3.8 09/29/18 12:48: Glucometer 137H Microbiology 09/27/18 Blood Culture - Preliminary, Resulted No growth 09/27/18 Influenza Types A,B Antigen (LADI) - Final, Complete 09/27/18 Urine Culture - Final, Complete NO GROWTH Procedures NAME: ROXI HARDEN [place] [facility] REC#: [id number] PT STATUS: ADM IN : 1955 PHYSICIAN: RONNELL DUDLEY DO ADMIT DATE: 09/27/18/ICU Signed Date of Exam: 09/29/18 CHEST 1 VIEW, AP/PA ONLY INDICATION: Shortness of breath. Portable chest 3:24 AM FINDINGS: There is an ET tube projecting over the trachea. NG tube projects over the stomach. Right IJ central line tip projects over the SVC. There is cardiomegaly. There is pulmonary vascular congestion. Lungs are clear. IMPRESSION: Cardiomegaly with pulmonary venous hypertension. This appears worse compared to the previous study from 09/27/2018. Dictated by: Dictated on workstation # [id number] Dict: 09/29/18 0731 Trans: 09/29/18 0752 Interpreted by: HAYLEE SANCHEZ MD Electronically signed by: HAYLEE SANCHEZ MD 09/29/18 0752 A/P: Assessment: Acute resp failure, multifactorial (see below) Ac systolic CHF due to nonischemic cardiomyopathy. Echo of 09/27/18 showed LVEF 20-25% that is unchanged compared to echo of Aug 2018, grade III diastolic dysfunction, biatrial enlargement, PASP 45 mmHg (unchanged compared to Aug 2018 study) Pneumonia with sepsis and septic shock PAF Card cath of 2014: no significant CAD, LVEF 40-45% Ac renal failure of undetermined etiology, possibly ATN due to hypotension Borderline DM II Tobacco chewing, chronic H/o noncompliance Plan: * Complex management * HR improved - continue IV Diltiazem * Amiodarone dc'd (reason: reduce risk of cardioversion, because previous anticoag status is unclear) * Continue reduced dose Lovenox (reason: hematuria and ac renal failure) * Furosemide to treat decomp CHF * Dr. Verde has discussed his case with Dr Dudley of the Pulm and ICU Svce * ICU and Med S[facility] managing pneumonia, sepsis and ac renal failure Physician Assessment Physician Assessment Still intubated and on mech vent Spouse by bedside Lungs: fair bilat air entry Cor: irreg Ext: mild pedal edema A&R * As documented in our note above that I updated (italics) and as noted below * Additional iv furosemide and iv dig today (see orders) * Monitor labs closely * Prognosis guarded * I spoke with his and answered CV-related questions JUAQUIN RODRIGUEZ [employer] Sep 29, 2018 08:33 VIDYA VERDE MD [facility] Sep 29, 2018 13:29
[2018-09-29] MEDS ORDERED: FUROSEMIDE 40 MG/4 ML INJ (LASIX) IVP NR ×2 (08:58→13:58)
--- NOTE | 2018-09-29 09:10 | Progress Note-Hospitalist ---
Subjective HPI/CC On Admission Date Seen by Provider: Sep 29, 2018 Time Seen by Provider: 10:00 The patient is a 62-year-old white male. He is on the ventilator and deeply sedated. History is gleaned from multiple sources. He apparently went to Dr. Alejandro's office this morning and was immediately sent to the emergency room because of his obvious distress. SaO2 was said to be in the 60s at the office. He apparently had been troubled by shortness of breath for a couple of weeks and it had been increasing considerably over the past several days. The findings in the emergency room strongly suggest a mixed etiology. His initial temperature was 100.6 pulse was 134 and BP was 71. Laboratory showed an initial 16.2 white count which in a repeat some 2 hours later was 19,500. Initially there were 76 percent granulocytes and on the second 93 percent. Creatinine was 1.9 at presentation. BNP 1115. Troponin was less than 0.3. Initial blood gas showed a pH of 7.13 PCO2 of 89 PaO2 of 101 on oxygen bicarbonate was 28. Lactic acid was open. Subsequently an echocardiogram has been repeated today which showed an ejection fraction of 20-25 percent and a pulmonary artery pressure of 45 L of mercury which is very similar to a study done previously this year. Subjective/Events-last exam Patient doing better Levophed weaning down Cardizem titrating down Rate controlled at 111 Off vasopressin Spoke with Dr. Dudley but most of issues are cardiac related but we'll continue to treat the pneumonia We'll attempt to start weaning tomorrow Focused Exam Lactate Level 09/27/18 11:30: Lactic Acid Level 0.91 Objective Exam Vital Signs Vital Signs Date Time Temp Pulse Resp B/P (MAP) Pulse Ox O2 Delivery O2 Flow Rate FiO2 09/29/18 10:09 102 26 92 21 09/29/18 09:00 136/65 (88) Mechanical Ventilator 25.00 09/29/18 07:00 98.6 Capillary Refill : Less Than 3 Seconds General Appearance: No Apparent Distress, WD/WN, Obese Respiratory: No Accessory Muscle Use, No Respiratory Distress, Crackles, Decreased Breath Sounds, Other (on vent) Cardiovascular: Regular Rate, Rhythm, No Edema, No Gallop, No JVD, No Murmur, Normal Peripheral Pulses Neurologic/Psychiatric: Other (sedated) Skin: Normal Color, Warm/Dry Results/Procedures Lab Laboratory Tests 09/29/18 03:10 Patient resulted labs reviewed. Assessment/Plan Assessment and Plan Assess & Plan/Chief Complaint Assessment: Ventilator dependent respiratory failure Bilateral pneumonia Sepsis Congestive heart failure ejection fraction 20 percent Hematuria decreasing Lovenox Atrial fibrillation with rapid ventricular response requiring Cardizem drip Hypotension requiring pressor therapy Volume overload requiring Lasix IV Acute renal failure Hypertension as an outpatient Gout Obesity Plan: Appreciate cardiology and pulmonology expertise Critical status Multisystem organ failure noted Guarded prognosis Updated family Diagnosis/Problems Diagnosis/Problems (1) Respiratory failure with hypercapnia Status: Acute Qualifiers: Chronicity: acute Qualified Codes: J96.02 - Acute respiratory failure with hypercapnia (2) Atrial fibrillation with rapid ventricular response Status: Acute (3) Sepsis Status: Acute Qualifiers: Sepsis type: sepsis due to unspecified organism Qualified Codes: A41.9 - Sepsis, unspecified organism (4) Hypotension Status: Acute Qualifiers: Hypotension type: unspecified hypotension type Qualified Codes: I95.9 - Hypotension, unspecified (5) Hematuria Status: Acute Qualifiers: Hematuria type: gross Qualified Codes: R31.0 - Gross hematuria (6) Multisystem organ failure Status: Acute (7) In guarded condition Status: Acute (8) Acute heart failure Status: Acute Qualifiers: Heart failure type: systolic Qualified Codes: I50.21 - Acute systolic ( congestive) heart failure (9) CAP (community acquired pneumonia) Status: Acute Qualifiers: Laterality: unspecified laterality Qualified Codes: J18.9 - Pneumonia, unspecified organism (10) PANDA (acute kidney injury) Status: Acute (11) Cardiomyopathy Status: Chronic Qualifiers: Cardiomyopathy type: unspecified Qualified Codes: I42.9 - Cardiomyopathy, unspecified (12) Non-compliance Status: Acute Clinical Quality Measures DVT/VTE Risk/Contraindication: Risk Factor Score Per Nursin RFS Level Per Nursing on Admit: 4+=Very High MARISA LARIOS DO Sep 29, 2018 09:10
--- NOTE | 2018-09-29 10:14 | Physical Therapy Progress Note ---
Therapy Progress Note No skilled PT indicated at this time due to patient is currently on mechanical ventilator and deeply sedated. PT will require new orders upon patient medical improvement. MAN MCKNIGHT PT Sep 29, 2018 10:14
[2018-09-29] MEDS ORDERED: TROUGH ORDER-PHARMACY XX NR (12:30)
[2018-09-29] MEDS ORDERED: DIGOXIN 0.25 MG/ML (LANOXIN) 2 ML AMP IV NR (13:58)
--- NOTE | 2018-09-29 14:51 | Occ Therapy Progress Note ---
Therapy Progress Note 1432 Pt is still on vent and sedated. Will continue to follow. GIFTY ROSE OT Sep 29, 2018 14:51
[2018-09-29] MEDS: fentaNYL INJECTION 1,250 MCG in NS (IVPB) 250 ML IV SCH (16:45)
[2018-09-29] MEDS: NS IV 1000 ML 1,000 ML IV SCH (18:20)
[2018-09-30] VITALS (29 sets, daily range): BP systolic 104–186; BP diastolic 54–101
[2018-09-30] MEDS: inSUlin ASPART (NovoLOG) 1 UNIT/0.01 ML (CHARGE PER UNIT) SC SCH ×4 (00:02→18:47)
[2018-09-30] MEDS: PROPOFOL DRIP (ICU) 100 ML IV SCH ×2 (01:09→04:07)
[2018-09-30] MEDS: RT-ALBUTEROL/IPRATROPIUM 3 ML (DUONEB) VIAL INH SCH ×6 (02:07→22:51)
[2018-09-30] MEDS: MEROPENEM 500 MG in NS (IVPB) 100 ML IV SCH ×4 (03:34→21:55)
[2018-09-30 03:53] LABS: ABG BASE EXCESS 5.6 MMOL/L (-2.5-2.5); ABG OXYGEN SATURATION 95 % (94-100); ABG PCO2 39 MMHG (35-45); ABG PH 7.49 (7.37-7.43); ABG PO2 61 MMHG (79-93); ABG TCO2 30.4 MMOL/L (21.0-31.0); BASOPHILS % (AUTO) 0 % (0-10); EOSINOPHILS % (AUTO) 0 % (0-10); HEMATOCRIT 40 % (40-54); HEMOGLOBIN 12.9 G/DL (13.3-17.7); LYMPHOCYTES # (AUTO) 0.5 X 10^3 (1.0-4.0); LYMPHOCYTES % (AUTO) 5 % (12-44); MEAN CORPUSCULAR HEMOGLOBIN 30 PG (25-34); MEAN CORPUSCULAR HGB CONC 32 G/DL (32-36); MEAN CORPUSCULAR VOLUME 93 FL (80-99); MEAN PLATELET VOLUME 11.1 FL (7.4-10.4); MONOCYTES # (AUTO) 0.7 X 10^3 (0.0-1.0); MONOCYTES % (AUTO) 7 % (0-12); NEUTROPHILS # (AUTO) 8.4 X 10^3 (1.8-7.8); NEUTROPHILS % (AUTO) 88 % (42-75); PLATELET COUNT 136 10^3/uL (130-400); RED BLOOD COUNT 4.27 10^6/uL (4.35-5.85); RED CELL DISTRIBUTION WIDTH 15.8 % (10.0-14.5); WHITE BLOOD COUNT 9.6 10^3/uL (4.3-11.0)
[2018-09-30 03:59] LABS: ALLENS TEST YES-POS; INSPIRED O2 35%; PATIENT TEMP 97.7; VENTILATOR YES
[2018-09-30 04:17] LABS: ALBUMIN 3.4 GM/DL (3.2-4.5); BILIRUBIN,TOTAL 1.3 MG/DL (0.1-1.0); CALCIUM 8.8 MG/DL (8.5-10.1); CREATININE SERUM 1.35 MG/DL (0.60-1.30); MAGNESIUM 2.6 MG/DL (1.8-2.4); PHOSPHORUS 3.6 MG/DL (2.3-4.7); POTASSIUM 3.6 MMOL/L (3.6-5.0); TOTAL PROTEIN 5.8 GM/DL (6.4-8.2)
[2018-09-30 04:23] LABS: DIGOXIN 0.44 NG/ML (0.80-2.00)
[2018-09-30] MEDS: MAGNESIUM 1 GM/100 ML IVPB 100 ML IV SCH (04:41)
[2018-09-30] MEDS: POTASSIUM CL 10MEQ/50ML IVPB 50 ML IV SCH ×4 (04:42→08:38)
[2018-09-30] MEDS: KCL 20 MEQ TAB (K-DUR) PO SCH (04:42)
[2018-09-30] MEDS ORDERED: 1/2 NS IV SOLUTION 1,000 ML IV ONE (05:40)
--- NOTE | 2018-09-30 05:41 | Pulmonary Progress Note ---
Subjective Time Seen by a Provider: 05:38 Subjective/Events-last exam Pt is requiring minimal oxygen. Sepsis Event Evaluation Height, Weight, BMI Height: 6'0.00" Weight: 229lbs. 0.8oz. 103.744517of; 29.6 BMI Method:Estimated Focused Exam Lactate Level 09/27/18 11:30: Lactic Acid Level 0.91 Exam Exam Vital Signs Date Time Temp Pulse Resp B/P (MAP) Pulse Ox O2 Delivery O2 Flow Rate FiO2 09/30/18 05:00 96 25 107/56 (73) 96 Mechanical Ventilator 30.00 09/30/18 04:10 97 26 98 30 09/30/18 04:07 120/58 09/30/18 04:00 97.7 09/30/18 04:00 92 114/56 (75) 98 Mechanical Ventilator 30.00 09/30/18 04:00 Mechanical Ventilator 30 09/30/18 03:00 98 25 104/58 (73) 94 Mechanical Ventilator 30.00 09/30/18 02:08 98 26 99 30 09/30/18 02:00 95 25 117/55 (75) 98 Mechanical Ventilator 30.00 09/30/18 01:09 96 09/30/18 01:00 100 09/30/18 01:00 100 25 109/54 (72) 98 Mechanical Ventilator 30.00 09/30/18 00:05 92 26 97 30 09/30/18 00:00 Mechanical Ventilator 30 09/30/18 00:00 100 26 120/61 (80) 97 Mechanical Ventilator 30.00 09/30/18 00:00 99.2 09/29/18 23:00 98 25 123/60 (81) 98 Mechanical Ventilator 30.00 09/29/18 22:21 101 26 97 30 09/29/18 22:00 97 26 116/55 (75) 99 Mechanical Ventilator 30.00 09/29/18 21:46 102/52 09/29/18 21:00 99 19 104/55 (71) 99 Mechanical Ventilator 30.00 09/29/18 20:07 93 26 99 30 09/29/18 20:00 Mechanical Ventilator 30 09/29/18 20:00 97 26 117/59 (78) 99 Mechanical Ventilator 30.00 09/29/18 19:42 98.4 09/29/18 19:00 98 25 114/59 (77) 98 Mechanical Ventilator 30.00 09/29/18 19:00 98 18 18:25 122/56 09/29/18 18:18 107 26 100 30 09/29/18 18:00 101 25 103/57 (72) 100 Mechanical Ventilator 30.00 09/29/18 17:00 100 26 109/57 (74) 99 Mechanical Ventilator 30.00 09/29/18 16:30 110 26 100 30 09/29/18 16:00 Mechanical Ventilator 21 09/29/18 16:00 106 27 153/62 (92) 97 Mechanical Ventilator 30.00 09/29/18 15:00 110 25 121/58 (79) 97 Mechanical Ventilator 30.00 09/29/18 14:26 135/61 09/29/18 14:03 109 26 98 30 09/29/18 14:00 101 25 107/53 (71) 98 Mechanical Ventilator 30.00 09/29/18 13:00 100 27 113/54 (73) 97 Mechanical Ventilator 30.00 09/29/18 13:00 109 09/29/18 12:00 96 Mechanical Ventilator 30 09/29/18 12:00 98 26 141/60 (87) 91 Mechanical Ventilator 30.00 09/29/18 12:00 98.1 09/29/18 11:22 121/59 09/29/18 11:00 103 22 137/61 (86) 90 Mechanical Ventilator 30.00 09/29/18 10:09 Mechanical Ventilator 30.00 09/29/18 10:09 102 26 92 21 09/29/18 10:00 99 25 134/62 (86) 93 Mechanical Ventilator 25.00 09/29/18 09:00 98 26 136/65 (88) 92 Mechanical Ventilator 25.00 09/29/18 08:41 106 29 92 21 09/29/18 08:00 99 23 142/68 (92) 93 Mechanical Ventilator 25.00 09/29/18 08:00 Mechanical Ventilator 21 09/29/18 07:38 138/75 09/29/18 07:00 98.6 98 26 120/63 (82) 92 Mechanical Ventilator 25.00 09/29/18 07:00 98 09/29/18 06:43 98 26 92 21 09/29/18 06:00 99 23 125/59 (81) 93 Mechanical Ventilator 25.00 I & O 09/30/18 07:00 Intake Total 2254 ml Output Total 5750 ml Balance -3496 ml Height & Weight Height: 6'0.00" Weight: 229lbs. 0.8oz. 103.369935kt; 29.6 BMI Method:Estimated General Appearance: No Apparent Distress, WD/WN, Obese HEENT: PERRL/EOMI, Pharynx Normal Neck: Full Range of Motion, Supple Respiratory: No Accessory Muscle Use, No Respiratory Distress, Crackles, Decreased Breath Sounds, Other (on vent) Cardiovascular: Regular Rate, Rhythm, No Edema, No Gallop, No JVD, No Murmur, Normal Peripheral Pulses Capillary Refill: Less Than 3 Seconds Gastrointestinal: non tender, soft Extremity: Other (minimal pedal edema) Neurologic/Psychiatric: Other (sedated) Skin: Normal Color, Warm/Dry Lymphatic: No Adenopathy Results Lab Laboratory Tests 09/29/18 03:10 09/30/18 03:39 Assessment/Plan Assessment/Plan Acute respiratory failure -Ventilator management -will start weaning vent today -Pt has a lot of anxiety chronically. Will probably need to just wake him up and extubate. -RN states he has not had much pulmonary mucous production -I discussed with Dr. Norton and he agrees with plan -D/C fentanyl gtt and titrate Diprivan to D/C Pneumonia with sepsis -Continue merrem -MRSA swab is negative -Pt is currently on 5 peep - CVP monitoring -Strong cultures pending influenza negative Acute renal failure - monitor -Gentle hydration secondary to CHF Hx of CHF Echo of 09/27/18 showed LVEF 20-25% -grade III diastolic dysfunction, -cardiology following Afib RVR -Currently on Cardizem gtt Hypotension secondary to sedation and intubation- improved -Will be gentle with IVF secondary to severe respiratory failure/hypoxia -wean down Diprivan and continue fentanyl, Precedex -Currently on Levophed -CVP RONNELL Turpin DO Sep 30, 2018 05:41
[2018-09-30] MEDS: 1/2 NS IV SOLUTION 1,000 ML IV SCH (05:43)
--- NOTE | 2018-09-30 08:03 | Diagnostic Imaging Report ---
Conversely, the upper lobes do seem better aerated than on the prior exam and the central pulmonary vascularity is not as prominent. The heart remains enlarged and the left retrocardiac region is still opacified. The mediastinum is not widened. The osseous structures are intact. The supportive tubes and lines are still in good position. IMPRESSION: There are mixed results. A new area of pneumonia/atelectasis has developed in the right infrahilar region but the upper lobes are better aerated and there is less pulmonary congestion. A followup study would be recommended for continued evaluation. Dictated by: Dictated on workstation # [id number]
[2018-09-30] MEDS ORDERED: DIGOXIN 0.25 MG/ML (LANOXIN) 2 ML AMP IV NR (08:30)
[2018-09-30] MEDS ORDERED: KCL 20 MEQ TAB (K-DUR) PO NR (08:30)
[2018-09-30] MEDS ORDERED: FUROSEMIDE 40 MG/4 ML INJ (LASIX) IVP NR (08:30)
[2018-09-30] MEDS: PANTOPRAZOLE 40 MG (PROTONIX) VIAL IV SCH (08:55)
[2018-09-30] MEDS: ENOXAPARIN 100 MG/1 ML (LOVENOX) SYR SC SCH (08:56)
--- NOTE | 2018-09-30 11:14 | Progress Note-Hospitalist ---
Subjective HPI/CC On Admission Date Seen by Provider: Sep 30, 2018 Time Seen by Provider: 10:30 The patient is a 62-year-old white male. He is on the ventilator and deeply sedated. History is gleaned from multiple sources. He apparently went to Dr. Alejandro's office this morning and was immediately sent to the emergency room because of his obvious distress. SaO2 was said to be in the 60s at the office. He apparently had been troubled by shortness of breath for a couple of weeks and it had been increasing considerably over the past several days. The findings in the emergency room strongly suggest a mixed etiology. His initial temperature was 100.6 pulse was 134 and BP was 71. Laboratory showed an initial 16.2 white count which in a repeat some 2 hours later was 19,500. Initially there were 76 percent granulocytes and on the second 93 percent. Creatinine was 1.9 at presentation. BNP 1115. Troponin was less than 0.3. Initial blood gas showed a pH of 7.13 PCO2 of 89 PaO2 of 101 on oxygen bicarbonate was 28. Lactic acid was open. Subsequently an echocardiogram has been repeated today which showed an ejection fraction of 20-25 percent and a pulmonary artery pressure of 45 L of mercury which is very similar to a study done previously this year. Subjective/Events-last exam Patient is extubated Family at bedside Checked meds and labs AF still with tachycardia Precedex low dose Checked meds and labs Review of Systems Pulmonary: Dyspnea Focused Exam Lactate Level Objective Exam Vital Signs Vital Signs Date Time Temp Pulse Resp B/P (MAP) Pulse Ox O2 Delivery O2 Flow Rate FiO2 09/30/18 10:02 92 Vapotherm 25.00 50 09/30/18 09:00 125 17 118/82 (94) 09/30/18 04:00 97.7 Capillary Refill : Less Than 3 Seconds General Appearance: No Apparent Distress, WD/WN, Chronically ill, Obese, Other (anxious) Respiratory: Chest Non Tender, Lungs Clear, Normal Breath Sounds, No Accessory Muscle Use, No Respiratory Distress Cardiovascular: No Edema, No Gallop, No JVD, No Murmur, Normal Peripheral Pulses, Irregularly Irregular, Tachycardia Neurologic/Psychiatric: Alert, Oriented x3, No Motor/Sensory Deficits, Normal Mood/Affect Results/Procedures Lab Laboratory Tests 09/30/18 03:39 Patient resulted labs reviewed. Assessment/Plan Assessment and Plan Assess & Plan/Chief Complaint Assessment: Ventilator dependent respiratory failure s/p extubation Bilateral pneumonia Sepsis Congestive heart failure ejection fraction 20 percent Hematuria decreasing Lovenox Atrial fibrillation with rapid ventricular response requiring Cardizem drip Hypotension requiring pressor therapy Volume overload requiring Lasix IV Acute renal failure Hypertension as an outpatient Gout Obesity Plan: Appreciate cardiology and pulmonology expertise Critical status Multisystem organ failure noted Guarded prognosis Updated family Improved today Diagnosis/Problems Diagnosis/Problems (1) Respiratory failure with hypercapnia Status: Resolved Qualifiers: Chronicity: acute Qualified Codes: J96.02 - Acute respiratory failure with hypercapnia Resolution Date/Time: 09/30/18 @ 11:36 (2) Atrial fibrillation with rapid ventricular response Status: Acute (3) Sepsis Status: Acute Qualifiers: Sepsis type: sepsis due to unspecified organism Qualified Codes: A41.9 - Sepsis, unspecified organism (4) Hypotension Status: Acute Qualifiers: Hypotension type: unspecified hypotension type Qualified Codes: I95.9 - Hypotension, unspecified (5) Hematuria Status: Acute Qualifiers: Hematuria type: gross Qualified Codes: R31.0 - Gross hematuria (6) Multisystem organ failure Status: Acute (7) In guarded condition Status: Acute (8) Acute heart failure Status: Acute Qualifiers: Heart failure type: systolic Qualified Codes: I50.21 - Acute systolic ( congestive) heart failure (9) CAP (community acquired pneumonia) Status: Acute Qualifiers: Laterality: unspecified laterality Qualified Codes: J18.9 - Pneumonia, unspecified organism (10) PANDA (acute kidney injury) Status: Acute (11) Cardiomyopathy Status: Chronic Qualifiers: Cardiomyopathy type: unspecified Qualified Codes: I42.9 - Cardiomyopathy, unspecified (12) Non-compliance Status: Acute Clinical Quality Measures DVT/VTE Risk/Contraindication: Risk Factor Score Per Nursin RFS Level Per Nursing on Admit: 4+=Very High MARISA LARIOS DO Sep 30, 2018 11:14
--- NOTE | 2018-09-30 15:18 | Physical Therapy Evaluation ---
PT Evaluation-General Medical Diagnosis Admission Date Sep 27, 2018 at 11:51 Medical Diagnosis: Sepsis, PNA, CHF, SOB Onset Date: Sep 27, 2018 Therapy Diagnosis Therapy Diagnosis: General weakness, Debility Height/Weight Height (Feet): 6 Height (Inches): 0.00 Weight (Pounds): 217 Weight (Ounces): 8.0 Precautions Precautions/Isolations: Fall Prevention, Standard Precautions, Pressure Ulcer Weight Bear Status Right Lower Extremity: Right Full Weight Bearing Left Lower Extremity: Left Full Weight Bearing Referral Physician: Jim Reason for Referral: Evaluation/Treatment Medical History Pertinent Medical History: Diverticulitis Additional Medical History Surgeries: Yes (COLONOSCOPY, CARDIAC CATH 12/2013) Abdominal, Cardiac Respiratory: No Cardiac: Yes (EXTREME NON-COMPLIANCE WITH MEDICATION) Cardiomyopathy, Hypertension Neurological: No Reproductive Disorders: No Sexually Transmitted Disease: No Genitourinary: No Gastrointestinal: Yes (DIVERTICULAR DISEASE FOUND ON SCREENING COLONOSCOPY) Diverticulosis Musculoskeletal: No Endocrine: No Cancer: No Psychosocial: No Anxiety Integumentary: No Blood Disorders: No Current History Patient had O2 sat in 60s at doctors office prior to EMS bringing patient into ER. Reviewed History: Yes Social History Home: Single Level Current Living Status: Spouse Entry Into Home: Stairs With Railing PT Steps Into Home: 4 PT Steps Inside Home: 0 Prior/Core FIM Prior Level of Function Functional [place] Measure 0=Not Assessed/NA 4=Minimal Assistance 1=Total Assistance 5=Supervision or Setup 2=Maximal Assistance 6=Modified [place] 3=Moderate Assistance 7=Complete IndependenceIRFPAI Quality Coding Scale 6 Independent with activity with or without an assistive device 5 Patient requires set up or clean up by helper. Patient completes activity by themselves 4 Supervision or touching assist (CGA). Mallory provide cues , steadying assist 3 The helper provides less than half the effort to complete the activity 2 The helper provides more than half the effort to complete the activity 1 Dependent. The helper does all the effort to complete an activity 7 Patient refused to complete or attempt activity 9 The patient did not perform the activity before the current illness or injury 88 Not attempted due to Medical conditions or safety concerns Bed Mobility: 7 Transfers (B,C,W/C) (FIM): 7 Gait: 7 Stairs: 7 PT Evaluation-Current Subjective Pt awake in room visiting with his son and pharmacist when PT arrived. Pt agreed to continue with PT evaluation Pain Numeric Pain Scale: 0-No Pain Location: No Pain Reported Objective Patient Orientation: Normal For Age Attachments: Oliveros Catheter, IV ROM/Strength ROM Upper Extremities WNL ROM Lower Extremities WNL Strength Upper Extremities WNL Strength Lower Extremities 5/5 BLE strength Neuromuscular (Tone, Coordination, Reflexes) slightly diminished coordination and is impulsive with mobility Sensory Vision: Functional Hearing: Functional Sensation Right Upper Extremit: Intact Sensation Left Upper Extremity: Intact Sensation Right Lower Extremit: Intact Sensation Left Lower Extremity: Intact Transfers Functional [place] Measure 0=Not Assessed/NA 4=Minimal Assistance 1=Total Assistance 5=Supervision or Setup 2=Maximal Assistance 6=Modified [place] 3=Moderate Assistance 7=Complete [place] Transfers (B, C, W/C) (FIM): 4 Scootin Rollin Supine to/from Sit: 5 Sit to/from Stand: 4 Gait Mode of Locomotion: Walk Anticipated Mode of Locomotion: Walk Gait (FIM): 1 Distance (FIM): 1=up to 49 ft Distance: 4' Gait Level of Assist: 4 Gait Persons Needed: 1 Gait Assistive Device: FWW Comments/Gait Description Patient had trouble stepping in room and need support from two therapist to ambulate 4'. Balance Sitting Static: Good Sitting Dynamic: Good Standing Static: Fair Standing Dynamic: Fair Assessment/Needs Pt had BLE strength of 5/5. Patient was able to stand well on his his own but needs CGA when standing due to current balance difficulty. Patient used a FWW but and will require CGA in future visits. Pt will benefit from ambulation and LE strengthening to maintain current level of function. Rehab Potential: Fair PT Magnetic Prospector Goals Magnetic Prospector Goals PT Magnetic Prospector Goals Time Frame: Oct 07, 2018 Transfers (B,C,W/C) (FIM): 7 Gait (FIM): 6 Gait distance (FIM): 3=150 ft Distance: 150' Gait Level of Assist: 6 Gait Assistive Device: FWW PT Plan Problem List Problem List: Activity Tolerance, Functional Strength, Safety, Balance, Gait, Transfer, Bed Mobility, ROM Treatment/Plan Treatment Plan: Continue Plan of Care Treatment Plan: Bed Mobility, Education, Functional Activity Yoli, Functional Strength, Group Therapy, Gait, Safety, Therapeutic Exercise Treatment Duration: Oct 07, 2018 Frequency: 6 times per week Estimated Hrs Per Day: .25 hour per day Patient and/or Family Agrees t: Yes Time/GCodes Time In: 1400 Time Out: 1428 Total Billed Treatment Time: 28 Total Billed Treatment 1 Visit EVHighC - 28' MAN MCKNIGHT PT Sep 30, 2018 15:18
--- NOTE | 2018-09-30 15:43 | Occupational Therapy Eval ---
OT Evaluation-General/PLF Medical Diagnosis Admission Date Sep 27, 2018 at 11:51 Medical Diagnosis: Sepsis, PNA, CHF, SOB Onset Date: Sep 27, 2018 Therapy Diagnosis Therapy Diagnosis: decr self care, decr funct mob, decr act bety, decr self care Height/Weight Height (Feet): 6 Height (Inches): 0.00 Weight (Pounds): 217 Weight (Ounces): 8.0 Precautions Precautions/Isolations: Fall Prevention, Standard Precautions, Pressure Ulcer Safety Interventions: Bed Exit Alarm Referral Physician: Octavia Referral Reason: Evaluation/Treatment Medical History Pertinent Medical History: Diverticulitis, HTN Additional Medical History Cardiomyopathy, diverticulosis. Decreased EF Current History Admitted through ED with respiratory distress. Then on vent and sedated. Pneumonia. Sepsis. Heart failure. A fib. cute renal failure. Obesity Reviewed History: Yes Social History Home: Single Level Current Living Status: Spouse Entry Into Home: Stairs With Railing Steps Into Home: 4 Steps Inside Home: 0 ADL-Prior Level of Function Functional [place] Measure 0=Not Assessed/NA 4=Minimal Assistance 1=Total Assistance 5=Supervision or Setup 2=Maximal Assistance 6=Modified [place] 3=Moderate Assistance 7=Complete [place] ADL PLOF Comments Pt reported that he has previously been able to manage his basic self care needs , care for his home, pay bills, manage meds. He works as a henning and still drives. Ge reported he drove his race car the night before he was admitted. Self Care DME/Equipment: Tall Toilet, Tub/Shower OT Current Status Subjective Pt seen in room, up in chair, agreeable to OT. Pain reported 0/10 Appearance Alert, cooperative. Subdued Mental Status/Objective Patient Orientation: Person, Place, Time, Situation Attachments: Central Line, IV, Oxygen, Telemetry Current Glasses/Contacts: Yes Hand Dominance: Right Upper Extremity ROM Grossly WFL Upper Extremity Strength Grossly 4+/5 bilat ADL-Treatment ADL-Current Pt up in chair for first time. Required 2 PTs to transfer to chair. Able to get drink but not eating yet. Functional [place] Measure 0=Not Assessed/NA 4=Minimal Assistance 1=Total Assistance 5=Supervision or Setup 2=Maximal Assistance 6=Modified [place] 3=Moderate Assistance 7=Complete IndependenceIRFPAI Quality Coding Scale 6 Independent with activity with or without an assistive device 5 Patient requires set up or clean up by helper. Patient completes activity by themselves 4 Supervision or touching assist (CGA). [place] provide cues , steadying assist 3 The helper provides less than half the effort to complete the activity 2 The helper provides more than half the effort to complete the activity 1 Dependent. The helper does all the effort to complete an activity 7 Patient refused to complete or attempt activity 9 The patient did not perform the activity before the current illness or injury 88 Not attempted due to Medical conditions or safety concerns Education OT Patient Education: Purpose of tx/functional activities, Rehab process Teaching Recipient: Patient Teaching Methods: Discussion Response to Teaching: Verbalize Understanding OT Jail Goals Jail Goals Time Frame: Oct 07, 2018 Eating (FIM): 6 Grooming(FIM): 5 Bathing(FIM): 5 Upper Body Dressing(FIM): 5 Lower Body Dressing(FIM): 5 Toileting(FIM): 5 Toilet/Commode Transfer(FIM): 5 Shower Transfer(FIM): 5 Additional Goals: 1-Demonstrate ADL Tasks, 2-Verbalize Understanding, 3- ImproveStrength/Yoli 1=Demonstrate adherence to instructed precautions during ADL tasks. 2=Patient will verbalize/demonstrate understanding of assistive devices/ modifications for ADL. 3=Patient will improve strength/tolerance for activity to enable patient to perform ADL's. OT Education/Plan Problem List/Assessment Assessment: Decreased Activ Tolerance, Decreased UE Strength, Dependent Transfers, Impaired Self-Care Skills Pt would benefit from skilled OT to increase his independence in basic self care Discharge Recommendations Plan/Recommendations: Continue POC Treatment Plan/Plan of Care Treatment,Training & Education: Yes Patient would benefit from OT for education, treatment and training to promote independence in ADL's, mobility, safety and/or upper extremity function for ADL' s. Plan of Care: ADL Retraining, Functional Mobility, UE Funct Exercise/Act, UE Neuromus Re-Ed/Coord Treatment Duration: Oct 07, 2018 Frequency: 5 times per week Estimated Hrs Per Day: .5 hour per day Agreement: Yes Rehab Potential: Fair Time/GCodes Start Time: 14:55 Stop Time: 15:05 Total Time Billed (hr/min): 10 Billed Treatment Time visit, 10 minutes evaluation moderate intensity GIFTY ROSE OT Sep 30, 2018 15:43
--- NOTE | 2018-09-30 15:48 | Progress Note-Cardiology ---
Cardiology SOAP Progress Note Subjective: Off vent and extubated No cp Feels tired and weak and anxious Objective: I&O/Vital Signs 09/30/18 09/30/18 09/30/18 09/30/18 04:00 04:00 04:00 04:07 Temp 97.7 Pulse 92 B/P (MAP) 114/56 (75) 120/58 Pulse Ox 98 O2 Delivery Mechanical Ventilator Mechanical Ventilator O2 Flow Rate 30.00 FiO2 30 09/30/18 09/30/18 09/30/18 09/30/18 04:10 05:00 06:00 06:12 Pulse 97 96 103 102 Resp 26 25 13 20 B/P (MAP) 107/56 (73) 121/57 (78) Pulse Ox 98 96 92 91 O2 Delivery Mechanical Ventilator Mechanical Ventilator O2 Flow Rate 30.00 30.00 FiO2 30 30 09/30/18 09/30/18 09/30/18 09/30/18 06:35 06:42 07:00 07:00 Pulse 116 122 122 Resp 13 20 B/P (MAP) 145/72 (96) 143/80 (101) Pulse Ox 95 95 94 O2 Delivery Vapotherm Vapotherm Vapotherm O2 Flow Rate 50.00 30.00 50.00 30.00 30.00 FiO2 50 09/30/18 09/30/18 09/30/18 09/30/18 08:00 08:00 08:36 09:00 Pulse 124 125 Resp 18 17 B/P (MAP) 126/75 (92) 118/82 (94) Pulse Ox 95 92 O2 Delivery Vapotherm Nasal Cannula Vapotherm Vapotherm O2 Flow Rate 50.00 6.00 50.00 50.00 30.00 25.00 25.00 09/30/18 09/30/18 09/30/18 09/30/18 10:00 10:02 11:00 12:00 Pulse 121 113 Resp 19 47 B/P (MAP) 153/79 (103) 141/73 (95) Pulse Ox 92 92 91 O2 Delivery Vapotherm Vapotherm Vapotherm Nasal Cannula O2 Flow Rate 50.00 25.00 50.00 6.00 25.00 25.00 FiO2 50 09/30/18 09/30/18 09/30/18 09/30/18 12:00 13:00 13:00 14:00 Pulse 105 104 103 Resp 17 23 B/P (MAP) 142/70 (94) 141/83 (102) Pulse Ox 94 94 O2 Delivery Vapotherm Vapotherm Nasal Cannula O2 Flow Rate 50.00 50.00 6.00 25.00 25.00 09/30/18 09/30/18 14:00 14:29 Pulse 112 Resp 18 B/P (MAP) 175/87 (116) Pulse Ox 93 95 O2 Delivery Nasal Cannula Nasal Cannula O2 Flow Rate 6.00 6.00 09/30/18 00:00 Intake Total 2054 ml Output Total 5100 ml Balance -3046 ml Weight (Pounds): 217 Weight (Ounces): 8.0 Weight (Calculated Kilograms): 98.091014 Constitutional: AAO x 3, well-developed, well-nourished Respiratory: lungs clear to auscultation (diminished bases bilat) Cardiovascular: irregularly irregular, S1 and S2, systolic murmur (soft ZOE at card base) Gastrointestional: soft; No guarding, No rebound; audible bowel sounds Extremities: swelling (mild to mod bilat pitting edema of the legs); No clubbing, No cyanosis Neurologic/Psychiatric: oriented x 3, grossly intact Skin: No rash on exposed areas, No ulcerations on exposed areas Results/Procedures: Labs Laboratory Tests 09/29/18 18:30: Glucometer 169H 09/29/18 23:57: Glucometer 112H 09/30/18 03:39: White Blood Count 9.6, Red Blood Count 4.27L, Hemoglobin 12.9L, Hematocrit 40, Mean Corpuscular Volume 93, Mean Corpuscular Hemoglobin 30, Mean Corpuscular Hemoglobin Concent 32, Red Cell Distribution Width 15.8H, Platelet Count 136, Mean Platelet Volume 11.1H, Neutrophils (%) (Auto) 88H, Lymphocytes (%) (Auto) 5L, Monocytes (%) (Auto) 7, Eosinophils (%) (Auto) 0, Basophils (%) (Auto) 0, Neutrophils # (Auto) 8.4H, Lymphocytes # (Auto) 0.5L, Monocytes # (Auto) 0.7, Eosinophils # (Auto) 0.0, Basophils # (Auto) 0.0, Blood Gas Puncture Site RIGHT RADIAL, Blood Gas Patient Temperature 97.7, Arterial Blood pH 7.49H, Arterial Blood Partial Pressure CO2 39, Arterial Blood Partial Pressure O2 61L, Arterial Blood HCO3 29H, Arterial Blood Total CO2 30.4, Arterial Blood Oxygen Saturation 95, Arterial Blood Base Excess 5.6H, Michael Test YES-POS, Blood Gas Ventilator Setting YES, Blood Gas Inspired Oxygen 35%, Sodium Level 147H, Potassium Level 3.6, Chloride Level 110H, Carbon Dioxide Level 26, Anion Gap 11, Blood Urea Nitrogen 31H, Creatinine 1.35H, Estimat Glomerular Filtration Rate 54, BUN/ Creatinine Ratio 23, Glucose Level 122H, Calcium Level 8.8, Corrected Calcium 9.3, Phosphorus Level 3.6, Magnesium Level 2.6H, Total Bilirubin 1.3H, Aspartate Amino Transf (AST/SGOT) 20, Alanine Aminotransferase (ALT/SGPT) 23, Alkaline Phosphatase 70, Total Protein 5.8L, Albumin 3.4, Triglycerides Level 90 , Digoxin Level 0.44L 09/30/18 12:41: Glucometer 93 Microbiology 09/27/18 Blood Culture - Preliminary, Resulted No growth 09/27/18 Influenza Types A,B Antigen (LADI) - Final, Complete 09/27/18 Urine Culture - Final, Complete NO GROWTH Laboratory Tests 09/29/18 03:10 09/30/18 03:39 A/P: Assessment: Acute resp failure, multifactorial (see below) Ac systolic CHF due to nonischemic cardiomyopathy. Echo of 09/27/18 showed LVEF 20-25% that is unchanged compared to echo of Aug 2018, grade III diastolic dysfunction, biatrial enlargement, PASP 45 mmHg (unchanged compared to Aug 2018 study) Pneumonia with sepsis and septic shock PAF Card cath of 2013: no significant CAD, LVEF 40-45% Ac renal failure of undetermined etiology, possibly ATN due to hypotension, improving Borderline DM II Tobacco chewing, chronic H/o noncompliance Plan: * Complex management * HR improved - continue IV Diltiazem * iv dig * iv diuretics * Oral K * Monitor labs * Discussed with pt and his * Dr Nick covering CV Svce over the weekend VIDYA VERDE MD FACP FAC CCDS Sep 30, 2018 15:47
[2018-09-30] MEDS: NOREPINEPHRINE 4 MG in NS (IVPB) 250 ML IV SCH (18:48)
[2018-09-30] MEDS: DILTIAZEM INJECTION 125 MG in NS (IVPB) 100 ML IV SCH (20:35)
[2018-09-30] MEDS: MELATONIN 3 MG TABLET PO SCH (20:35)
[2018-09-30] MEDS ORDERED: HALOPERIDOL 5 MG/ML (HALDOL) AMP ONE (22:09)
[2018-09-30] MEDS ORDERED: HALOPERIDOL 5 MG/ML (HALDOL) AMP IV ONE (23:45)
[2018-09-30] MEDS ORDERED: LORazepam INJ 2 MG/ML (ATIVAN) VIAL IV PRN (23:45)
[2018-10-01] VITALS (24 sets, daily range): BP systolic 98–166; BP diastolic 59–108
[2018-10-01] MEDS: inSUlin ASPART (NovoLOG) 1 UNIT/0.01 ML (CHARGE PER UNIT) SC SCH ×4 (01:53→18:23)
[2018-10-01] MEDS: 1/2 NS IV SOLUTION 1,000 ML IV SCH (02:43)
[2018-10-01] MEDS: RT-ALBUTEROL/IPRATROPIUM 3 ML (DUONEB) VIAL INH SCH ×6 (03:20→21:41)
[2018-10-01 03:39] LABS: BASOPHILS % (AUTO) 0 % (0-10); EOSINOPHILS % (AUTO) 0 % (0-10); HEMATOCRIT 42 % (40-54); HEMOGLOBIN 13.1 G/DL (13.3-17.7); LYMPHOCYTES # (AUTO) 0.7 X 10^3 (1.0-4.0); LYMPHOCYTES % (AUTO) 11 % (12-44); MEAN CORPUSCULAR HEMOGLOBIN 30 PG (25-34); MEAN CORPUSCULAR HGB CONC 32 G/DL (32-36); MEAN CORPUSCULAR VOLUME 94 FL (80-99); MEAN PLATELET VOLUME 10.5 FL (7.4-10.4); MONOCYTES # (AUTO) 0.6 X 10^3 (0.0-1.0); MONOCYTES % (AUTO) 9 % (0-12); NEUTROPHILS # (AUTO) 5.3 X 10^3 (1.8-7.8); NEUTROPHILS % (AUTO) 80 % (42-75); PLATELET COUNT 108 10^3/uL (130-400); RED CELL DISTRIBUTION WIDTH 15.1 % (10.0-14.5); WHITE BLOOD COUNT 6.7 10^3/uL (4.3-11.0)
[2018-10-01] MEDS: MEROPENEM 500 MG in NS (IVPB) 100 ML IV SCH ×4 (04:00→21:43)
[2018-10-01 04:03] LABS: ALANINE AMINOTRANSFERASE 35 U/L (0-55); ALBUMIN 3.4 GM/DL (3.2-4.5); ALKALINE PHOSPHATASE 78 U/L (40-136); BILIRUBIN,TOTAL 2.1 MG/DL (0.1-1.0); BUN/CREATININE RATIO 25; CALCIUM 8.5 MG/DL (8.5-10.1); CARBON DIOXIDE 28 MMOL/L (21-32); CHLORIDE 106 MMOL/L (98-107); CREATININE SERUM 1.06 MG/DL (0.60-1.30); GFR ESTIMATED > 60; GLUCOSE 98 MG/DL (70-105); MAGNESIUM 2.7 MG/DL (1.8-2.4); PHOSPHORUS 3.7 MG/DL (2.3-4.7); POTASSIUM 3.6 MMOL/L (3.6-5.0); SODIUM 142 MMOL/L (135-145); TOTAL PROTEIN 5.8 GM/DL (6.4-8.2)
[2018-10-01] MEDS: POTASSIUM CL 10MEQ/50ML IVPB 50 ML IV SCH ×3 (04:30→05:50)
--- NOTE | 2018-10-01 05:27 | Pulmonary Progress Note ---
Subjective Time Seen by a Provider: 05:37 Subjective/Events-last exam Pt is doing better off vent. He is still on cardizem gtt and precedex. Sepsis Event Evaluation Height, Weight, BMI Height: 6'0.00" Weight: 217lbs. 8.0oz. 98.360027io; 29.6 BMI Method:Estimated Exam Exam Vital Signs Date Time Temp Pulse Resp B/P (MAP) Pulse Ox O2 Delivery O2 Flow Rate FiO2 10/01/18 05:00 82 19 124/75 (91) 94 Nasal Cannula 5.00 10/01/18 04:00 75 14 120/61 (80) 94 Nasal Cannula 5.00 10/01/18 04:00 97.6 10/01/18 04:00 Nasal Cannula 5.00 10/01/18 03:22 95 Nasal Cannula 6.00 10/01/18 03:00 81 14 104/66 (79) 94 Nasal Cannula 5.00 10/01/18 02:00 82 18 123/69 (87) 94 Nasal Cannula 5.00 10/01/18 01:00 79 10/01/18 01:00 79 15 103/65 (78) 94 Nasal Cannula 5.00 10/01/18 00:00 84 13 98/60 (73) 94 Nasal Cannula 5.00 10/01/18 00:00 Nasal Cannula 5.00 10/01/18 00:00 98.6 09/30/18 23:00 88 11 115/57 (76) 93 Nasal Cannula 5.00 09/30/18 23:00 Nasal Cannula 5.00 09/30/18 22:51 94 Nasal Cannula 6.00 09/30/18 22:00 105 16 135/68 (90) 94 Nasal Cannula 6.00 09/30/18 21:00 101 19 153/74 (100) 94 Nasal Cannula 6.00 09/30/18 20:00 Nasal Cannula 6.00 09/30/18 20:00 98.1 105 18 144/89 (107) 94 Nasal Cannula 6.00 09/30/18 19:00 117 27 155/77 (103) 94 Nasal Cannula 6.00 09/30/18 19:00 116 09/30/18 18:12 92 Nasal Cannula 6.00 09/30/18 18:00 110 27 186/101 (129) 94 Nasal Cannula 6.00 09/30/18 17:00 100 21 156/74 (101) 94 Nasal Cannula 6.00 09/30/18 16:51 Nasal Cannula 6.00 09/30/18 16:00 98 19 143/70 (94) 94 Nasal Cannula 6.00 09/30/18 15:00 116 18 159/73 (101) 93 Nasal Cannula 6.00 09/30/18 14:29 95 Nasal Cannula 6.00 09/30/18 14:00 112 18 175/87 (116) 93 Nasal Cannula 6.00 09/30/18 14:00 Nasal Cannula 6.00 09/30/18 13:00 103 09/30/18 13:00 104 23 141/83 (102) 94 Vapotherm 50.00 25.00 09/30/18 12:00 105 17 142/70 (94) 94 Vapotherm 50.00 25.00 09/30/18 12:00 Nasal Cannula 6.00 09/30/18 11:00 113 47 141/73 (95) 91 Vapotherm 50.00 25.00 09/30/18 10:02 92 Vapotherm 25.00 50 09/30/18 10:00 121 19 153/79 (103) 92 Vapotherm 50.00 25.00 09/30/18 09:00 125 17 118/82 (94) 92 Vapotherm 50.00 25.00 09/30/18 08:36 Vapotherm 50.00 25.00 09/30/18 08:00 Nasal Cannula 6.00 09/30/18 08:00 124 18 126/75 (92) 95 Vapotherm 50.00 30.00 09/30/18 07:00 122 20 143/80 (101) 94 Vapotherm 50.00 30.00 09/30/18 07:00 122 09/30/18 06:42 95 Vapotherm 30.00 50 09/30/18 06:35 116 13 145/72 (96) 95 Vapotherm 50.00 30.00 09/30/18 06:12 102 20 91 30 09/30/18 06:00 103 13 121/57 (78) 92 Mechanical Ventilator 30.00 I & O 10/01/18 07:00 Intake Total 1550 ml Output Total 3550 ml Balance -2000 ml Height & Weight Height: 6'0.00" Weight: 217lbs. 8.0oz. 98.841665ku; 29.6 BMI Method:Estimated General Appearance: No Apparent Distress, WD/WN, Chronically ill, Obese, Other (anxious) HEENT: PERRL/EOMI, Pharynx Normal Neck: Full Range of Motion, Supple Respiratory: Chest Non Tender, Lungs Clear, Normal Breath Sounds, No Accessory Muscle Use, No Respiratory Distress Cardiovascular: No Edema, No Gallop, No JVD, No Murmur, Normal Peripheral Pulses, Irregularly Irregular, Tachycardia Capillary Refill: Less Than 3 Seconds Gastrointestinal: non tender, soft Extremity: Other (minimal pedal edema) Neurologic/Psychiatric: Alert, Oriented x3, No Motor/Sensory Deficits, Normal Mood/Affect Skin: Normal Color, Warm/Dry Lymphatic: No Adenopathy Results Lab Laboratory Tests 09/30/18 03:39 10/01/18 03:25 Assessment/Plan Assessment/Plan Acute respiratory failure -Pt is doing well off vent -Change IVF to D5LR at 50cc/hr Pneumonia with sepsis -Continue merrem -MRSA swab is negative - CVP monitoring -Strong cultures pending influenza negative Anxiety/agitation -D/C precedex -Start Risperadol and PRN Haldol Acute renal failure - improved -Gentle hydration secondary to CHF Hx of CHF Echo of 09/27/18 showed LVEF 20-25% -grade III diastolic dysfunction, -cardiology following Afib RVR -Currently on Cardizem gtt - titrate to D/C -Will go ahead and start Lopressor and await cardiology recs. Will make patient ICU step down status and probably transfer to 4th floor tomorrow if ok with cardiology. RONNELL COCHRAN DO Oct 01, 2018 05:27
[2018-10-01] MEDS: MAGNESIUM 1 GM/100 ML IVPB 100 ML IV SCH (05:50)
[2018-10-01] MEDS: KCL 20 MEQ TAB (K-DUR) PO SCH (05:51)
[2018-10-01] MEDS ORDERED: HALOPERIDOL 5 MG/ML (HALDOL) AMP IV SCH (06:00)
[2018-10-01] MEDS: D5 LR IV SOLUTION 1,000 ML IV SCH (06:12)
--- NOTE | 2018-10-01 08:02 | Diagnostic Imaging Report ---
INDICATION: Shortness of breath, extubated. COMPARISON: 09/30/2018. FINDINGS: Single view of the chest demonstrates continued cardiac enlargement with central vascular congestion. There is some persistent but decreased infiltrate in the right base. There is no pneumothorax or large effusion. NG tube and ET tube have been removed. IMPRESSION: 1. Improved aeration right lung base. 2. Cardiac enlargement with stable central vascular congestion. 3. Extubation without pneumothorax. Dictated by: Dictated on workstation # [id number]
[2018-10-01] MEDS: NOREPINEPHRINE 4 MG in NS (IVPB) 250 ML IV SCH ×2 (10:22→23:13)
[2018-10-01] MEDS: risperiDONE 0.25 MG (RisperDAL) TAB PO SCH ×2 (11:03→20:17)
[2018-10-01] MEDS: PANTOPRAZOLE 40 MG (PROTONIX) VIAL IV SCH (11:04)
[2018-10-01] MEDS: meTOprolol TARTRATE 25 MG (LOPRESSOR) TABLET PO SCH ×2 (11:04→20:16)
[2018-10-01] MEDS: APIXABAN 5 MG (ELIQUIS) TABLET PO SCH ×2 (11:04→20:16)
--- NOTE | 2018-10-01 12:04 | Cardiology Progress Note ---
Cardiology SOAP Progress Note Subjective: Post extubation doing well. Objective: I&O/Vital Signs 10/01/18 10/01/18 10/01/18 10/01/18 04:00 04:00 04:00 05:00 Temp 97.6 Pulse 75 82 Resp 14 19 B/P (MAP) 120/61 (80) 124/75 (91) Pulse Ox 94 94 O2 Delivery Nasal Cannula Nasal Cannula Nasal Cannula O2 Flow Rate 5.00 5.00 5.00 10/01/18 10/01/18 10/01/18 10/01/18 06:00 06:43 07:00 07:00 Pulse 87 80 80 Resp 18 11 B/P (MAP) 128/76 (93) 106/65 (79) Pulse Ox 95 94 93 O2 Delivery Nasal Cannula Nasal Cannula Nasal Cannula O2 Flow Rate 5.00 5.00 5.00 10/01/18 10/01/18 10/01/18 10/01/18 08:00 08:40 08:40 09:00 Temp 98.0 Pulse 78 84 Resp 12 13 B/P (MAP) 106/70 (82) 121/62 (81) Pulse Ox 94 94 O2 Delivery Nasal Cannula Nasal Cannula Nasal Cannula Nasal Cannula O2 Flow Rate 5.00 5.00 5.00 5.00 10/01/18 10/01/18 10/01/18 10/01/18 09:50 10:00 11:00 12:19 Pulse 89 79 Resp 13 11 B/P (MAP) 119/74 (89) 121/68 (85) Pulse Ox 95 94 96 O2 Delivery Nasal Cannula Nasal Cannula Nasal Cannula Nasal Cannula O2 Flow Rate 5.00 5.00 5.00 5.00 10/01/18 10/01/18 10/01/18 12:49 13:00 14:23 Temp 97.6 Pulse 90 B/P (MAP) Pulse Ox 95 O2 Delivery Nasal Cannula Nasal Cannula O2 Flow Rate 5.00 4.00 10/01/18 00:00 Intake Total 900 ml Output Total 1750 ml Balance -850 ml Weight (Pounds): 215 Weight (Ounces): 8.0 Weight (Calculated Kilograms): 97.811240 Constitutional: AAO x 3, well-developed, well-nourished Respiratory: No accessory muscle use, No respiratory distress, No chest tender , No chest expansion is symmetric; chest is bilaterally symmetric; No lungs clear to percussion; lungs clear to auscultation (diminished bases bilat); No crackles, No rhonchi, No rales, No stridor, No wheezing, No pleural rub, No other Cardiovascular: No regular rate-rhythm; irregularly irregular; No extra beats, No parasternal heave is noted, No JVD, No edema, No bradycardia, No tachycardia , No point of maximal impulse, No cardiac thrills are palpable; S1 and S2; No gallop/S3, No gallop/S4, No diastolic murmur; systolic murmur (soft ZOE at card base); No friction rub, No click, No other Gastrointestional: No tender; soft; No round, No distended, No pulsatile mass, No organomegaly, No guarding, No rebound, No tenderness, No hernia, No mass; audible bowel sounds; No abnormal bowel sounds, No abdominal bruits, No spleenomegaly, No other Extremities: No normal range of motion, No non-tender, No normal inspection, No pedal edema, No calf tenderness, No normal capillary refill, No pelvis stable , No calf tenderness, No inflammation, No pedal edema, No slow capillary refill ; swelling (mild to mod bilat pitting edema of the legs); No other, No abrasion , No clubbing, No cyanosis, No ecchymosis, No laceration, No no lower extremity edema bilateral, No significant edema, No tenderness, No wound Neurologic/Psychiatric: no motor/sensory deficits, alert, normal mood/affect, oriented x 3, grossly intact Skin: No rash on exposed areas, No ulcerations on exposed areas Results/Procedures: Labs Laboratory Tests 09/30/18 18:44: Glucometer 90 10/01/18 03:25: White Blood Count 6.7, Red Blood Count 4.40, Hemoglobin 13.1L, Hematocrit 42, Mean Corpuscular Volume 94, Mean Corpuscular Hemoglobin 30, Mean Corpuscular Hemoglobin Concent 32, Red Cell Distribution Width 15.1H, Platelet Count 108L, Mean Platelet Volume 10.5H, Neutrophils (%) (Auto) 80H, Lymphocytes (%) (Auto) 11L, Monocytes (%) (Auto) 9, Eosinophils (%) (Auto) 0, Basophils (%) (Auto) 0, Neutrophils # (Auto) 5.3, Lymphocytes # (Auto) 0.7L, Monocytes # (Auto) 0.6, Eosinophils # (Auto) 0.0, Basophils # (Auto) 0.0, Sodium Level 142, Potassium Level 3.6, Chloride Level 106, Carbon Dioxide Level 28, Anion Gap 8, Blood Urea Nitrogen 27H, Creatinine 1.06, Estimat Glomerular Filtration Rate > 60, BUN/ Creatinine Ratio 25, Glucose Level 98, Calcium Level 8.5, Corrected Calcium 9.0 , Phosphorus Level 3.7, Magnesium Level 2.7H, Total Bilirubin 2.1H, Aspartate Amino Transf (AST/SGOT) 32, Alanine Aminotransferase (ALT/SGPT) 35, Alkaline Phosphatase 78, Total Protein 5.8L, Albumin 3.4 10/01/18 11:43: Glucometer 110 Microbiology 09/27/18 Blood Culture - Preliminary, Resulted No growth 09/27/18 Influenza Types A,B Antigen (LADI) - Final, Complete 09/27/18 Urine Culture - Final, Complete NO GROWTH A/P: Assessment/Dx: Assessment: Acute resp failure, multifactorial (see below) Ac systolic CHF due to nonischemic cardiomyopathy. Echo of 09/27/18 showed LVEF 20-25% that is unchanged compared to echo of Aug 2018, grade III diastolic dysfunction, biatrial enlargement, PASP 45 mmHg (unchanged compared to Aug 2018 study) Pneumonia with sepsis and septic shock PAF Card cath of 2013: no significant CAD, LVEF 40-45% Ac renal failure of undetermined etiology, possibly ATN due to hypotension, improving Borderline DM II Tobacco chewing, chronic H/o noncompliance Plan: Plan: * Complex management * HR improved -DC Cardizem, start beta fredy. * Restart lisinopril 5 mg daily. * CVP 8, therefore no diuretics for now. * Oral K * Monitor labs * Start Eliquis 5 mg twice a day. Thank you for your consultation. Please call me if you have any questions. Sarita Nick MD, FACP, FACC, FSCAI, FHRS, CCDS Interventional Cardiology Cardiac Electrophysiology Vascular Medicine and Endovascular Interventions [place] NICK MD Oct 01, 2018 12:03 pm
--- NOTE | 2018-10-01 13:14 | Physical Therapy Daily Note ---
PT Daily Note-Current Subjective Pt difficult to understand at times due to talking very low and soft. Agreeable to sit EOB, but not to get up to walk or sit in a chair. Pain Numeric Pain Scale: 0-No Pain Appearance Pt supine in bed with family members present at beginning of and end of therapy session Mental Status Attachments: Oxygen, Oliveros Catheter, IV leads from monitors in ICU Transfers Functional [place] Measure 0=Not Assessed/NA 4=Minimal Assistance 1=Total Assistance 5=Supervision or Setup 2=Maximal Assistance 6=Modified [place] 3=Moderate Assistance 7=Complete IndependenceIRFPAI Quality Coding Scale 6 Independent with activity with or without an assistive device 5 Patient requires set up or clean up by helper. Patient completes activity by themselves 4 Supervision or touching assist (CGA). Jordan provide cues , steadying assist 3 The helper provides less than half the effort to complete the activity 2 The helper provides more than half the effort to complete the activity 1 Dependent. The helper does all the effort to complete an activity 7 Patient refused to complete or attempt activity 9 The patient did not perform the activity before the current illness or injury 88 Not attempted due to Medical conditions or safety concerns Transfers (B, C, W/C) (FIM): 4 Scootin Rollin Supine to/from Sit: 5 Sit to/from Stand: 4 Pt able to perform bed mobility with effort. Sit to stand with CGA due to some impulsivity noted and slight balance issue once standing Weight Bearing Right Lower Extremity: Right Full Weight Bearing Left Lower Extremity: Left Full Weight Bearing Exercises Seated Therapy Exercises: Ankle pumps, Sit to stand, Long arc quads, Hip flexion Seated Reps: 10 Pt fatigued easily with sitting EOB and performing LE exercises Treatments transfer training, exercises Assessment Current Status: Poor Progress fatigues very easily PT Halfway Goals Halfway Goals PT Hadoop Consultant Goals Time Frame: Oct 07, 2018 Transfers (B,C,W/C) (FIM): 7 Gait (FIM): 6 Gait distance (FIM): 3=150 ft Distance: 150' Gait Level of Assist: 6 Gait Assistive Device: FWW PT Plan Problem List Problem List: Activity Tolerance, Functional Strength, Safety, Balance, Gait, Transfer, Bed Mobility Treatment/Plan Treatment Plan: Continue Plan of Care Treatment Plan: Bed Mobility, Education, Functional Activity Yoli, Functional Strength, Group Therapy, Gait, Safety, Therapeutic Exercise Treatment Duration: Oct 07, 2018 Frequency: 6 times per week Estimated Hrs Per Day: .25 hour per day Patient and/or Family Agrees t: Yes Safety Risks/Education Patient Education: Transfer Techniques, Safety Issues Teaching Recipient: Patient Teaching Methods: Discussion Response to Teaching: Verbalize Understanding, Return Demonstration Time/GCodes Time In: 1237 Time Out: 1253 Total Billed Treatment Time: 16 Total Billed Treatment 1 Visit FA x1 MIRLANDE ACOSTA [employer]X PLATER Oct 01, 2018 13:14
--- NOTE | 2018-10-01 14:41 | Progress Note-Hospitalist ---
Progress Note Progress Notes/Assess & Plan Date Seen 10/01/18 Time Seen by Provider: 14:41 Assessment & Plan The patient has been extubated and is tolerating this reasonably well. SAMAN PADILLA MD Oct 01, 2018 14:41
[2018-10-01] MEDS: lisINopril 5 MG (PRINIVIL) TABLET PO SCH (15:50)
[2018-10-01] MEDS: MELATONIN 3 MG TABLET PO SCH (20:17)
[2018-10-01] MEDS: HALOPERIDOL 5 MG/ML (HALDOL) AMP IV PRN (21:43)
[2018-10-02] VITALS (9 sets, daily range): BP systolic 110–159; BP diastolic 74–92
[2018-10-02] MEDS: RT-ALBUTEROL/IPRATROPIUM 3 ML (DUONEB) VIAL INH SCH ×3 (01:21→10:04)
[2018-10-02] MEDS: D5 LR IV SOLUTION 1,000 ML IV SCH (03:11)
[2018-10-02] MEDS: MEROPENEM 500 MG in NS (IVPB) 100 ML IV SCH ×4 (04:00→21:36)
[2018-10-02 04:16] LABS: BASOPHILS % (AUTO) 0 % (0-10); EOSINOPHILS # (AUTO) 0.1 10^3/uL (0.0-0.3); EOSINOPHILS % (AUTO) 2 % (0-10); HEMATOCRIT 43 % (40-54); HEMOGLOBIN 14.2 G/DL (13.3-17.7); LYMPHOCYTES # (AUTO) 0.7 X 10^3 (1.0-4.0); LYMPHOCYTES % (AUTO) 10 % (12-44); MEAN CORPUSCULAR HEMOGLOBIN 31 PG (25-34); MEAN CORPUSCULAR HGB CONC 33 G/DL (32-36); MEAN CORPUSCULAR VOLUME 92 FL (80-99); MEAN PLATELET VOLUME 10.7 FL (7.4-10.4); MONOCYTES # (AUTO) 0.7 X 10^3 (0.0-1.0); MONOCYTES % (AUTO) 10 % (0-12); NEUTROPHILS # (AUTO) 5.3 X 10^3 (1.8-7.8); NEUTROPHILS % (AUTO) 78 % (42-75); PLATELET COUNT 127 10^3/uL (130-400); RED BLOOD COUNT 4.65 10^6/uL (4.35-5.85); RED CELL DISTRIBUTION WIDTH 14.9 % (10.0-14.5); WHITE BLOOD COUNT 6.8 10^3/uL (4.3-11.0)
[2018-10-02 04:35] LABS: ALANINE AMINOTRANSFERASE 36 U/L (0-55); ALBUMIN 3.3 GM/DL (3.2-4.5); ALKALINE PHOSPHATASE 81 U/L (40-136); BILIRUBIN,TOTAL 1.9 MG/DL (0.1-1.0); BUN/CREATININE RATIO 26; CALCIUM 8.9 MG/DL (8.5-10.1); CARBON DIOXIDE 27 MMOL/L (21-32); CHLORIDE 105 MMOL/L (98-107); CREATININE SERUM 0.86 MG/DL (0.60-1.30); GFR ESTIMATED > 60; GLUCOSE 130 MG/DL (70-105); MAGNESIUM 2.4 MG/DL (1.8-2.4); PHOSPHORUS 3.3 MG/DL (2.3-4.7); POTASSIUM 3.6 MMOL/L (3.6-5.0); SODIUM 140 MMOL/L (135-145); TOTAL PROTEIN 5.9 GM/DL (6.4-8.2)
[2018-10-02] MEDS ORDERED: KCL 8 MEQ (MICRO K) TABLET PO ONE (05:15)
[2018-10-02] MEDS: MAGNESIUM 1 GM/100 ML IVPB 100 ML IV SCH (05:22)
[2018-10-02] MEDS: KCL 20 MEQ TAB (K-DUR) PO SCH (05:22)
[2018-10-02] MEDS: POTASSIUM CL 10MEQ/50ML IVPB 50 ML IV SCH (05:22)
[2018-10-02] MEDS: DILTIAZEM INJECTION 125 MG in NS (IVPB) 100 ML IV SCH (05:23)
--- NOTE | 2018-10-02 05:23 | Pulmonary Progress Note ---
Subjective Time Seen by a Provider: 05:22 Subjective/Events-last exam Pt is doing better. Still requiring oxygen. Sepsis Event Evaluation Height, Weight, BMI Height: 6'0.00" Weight: 215lbs. 8.0oz. 97.815261qy; 29.6 BMI Method:Estimated Exam Exam Vital Signs Date Time Temp Pulse Resp B/P (MAP) Pulse Ox O2 Delivery O2 Flow Rate FiO2 10/02/18 04:00 Nasal Cannula 4.00 10/02/18 01:00 86 10/02/18 00:00 96.9 10/02/18 00:00 Nasal Cannula 4.00 10/02/18 00:00 80 17 144/87 (106) 96 Nasal Cannula 4.00 10/01/18 23:00 89 22 131/81 (98) 96 Nasal Cannula 4.00 10/01/18 22:00 76 19 118/75 (89) 94 Nasal Cannula 4.00 10/01/18 21:41 95 Nasal Cannula 4.00 10/01/18 21:00 98 15 146/85 (105) 95 Nasal Cannula 4.00 10/01/18 20:00 Nasal Cannula 4.00 10/01/18 20:00 97.1 88 23 166/108 (127) 94 Nasal Cannula 4.00 10/01/18 19:00 86 10/01/18 19:00 86 15 148/95 (112) 96 Nasal Cannula 4.00 10/01/18 18:51 95 Nasal Cannula 4.00 10/01/18 18:00 93 34 136/82 (100) 94 Nasal Cannula 4.00 10/01/18 17:00 86 16 142/85 (104) 96 Nasal Cannula 4.00 10/01/18 16:24 96.8 Nasal Cannula 4.00 10/01/18 16:05 Nasal Cannula 4.00 10/01/18 16:00 89 15 133/81 (98) 98 Nasal Cannula 4.00 10/01/18 15:00 87 17 128/70 (89) 94 Nasal Cannula 4.00 10/01/18 14:23 95 Nasal Cannula 4.00 10/01/18 14:00 79 17 112/59 (76) 96 Nasal Cannula 4.00 10/01/18 13:00 90 10/01/18 13:00 82 15 120/77 (91) 96 Nasal Cannula 5.00 10/01/18 12:49 97.6 Nasal Cannula 5.00 10/01/18 12:19 Nasal Cannula 5.00 10/01/18 12:00 83 11 116/70 (85) 95 Nasal Cannula 5.00 10/01/18 11:00 79 11 121/68 (85) 96 Nasal Cannula 5.00 10/01/18 10:00 89 13 119/74 (89) 94 Nasal Cannula 5.00 10/01/18 09:50 95 Nasal Cannula 5.00 10/01/18 09:00 84 13 121/62 (81) 94 Nasal Cannula 5.00 10/01/18 08:40 98.0 Nasal Cannula 5.00 10/01/18 08:40 Nasal Cannula 5.00 10/01/18 08:00 78 12 106/70 (82) 94 Nasal Cannula 5.00 10/01/18 07:00 80 10/01/18 07:00 80 11 106/65 (79) 93 Nasal Cannula 5.00 10/01/18 06:43 94 Nasal Cannula 5.00 10/01/18 06:00 87 18 128/76 (93) 95 Nasal Cannula 5.00 I & O 10/02/18 07:00 Intake Total 2100 ml Output Total 1450 ml Balance 650 ml Height & Weight Height: 6'0.00" Weight: 215lbs. 8.0oz. 97.224429hy; 29.6 BMI Method:Estimated General Appearance: No Apparent Distress, WD/WN, Chronically ill, Obese, Other (anxious) HEENT: PERRL/EOMI, Pharynx Normal Neck: Full Range of Motion, Supple Respiratory: Chest Non Tender, Lungs Clear, Normal Breath Sounds, No Accessory Muscle Use, No Respiratory Distress Cardiovascular: No Edema, No Gallop, No JVD, No Murmur, Normal Peripheral Pulses, Irregularly Irregular, Tachycardia Capillary Refill: Less Than 3 Seconds Gastrointestinal: non tender, soft Extremity: Other (minimal pedal edema) Neurologic/Psychiatric: Alert, Oriented x3, No Motor/Sensory Deficits, Normal Mood/Affect Skin: Normal Color, Warm/Dry Lymphatic: No Adenopathy Results Lab Laboratory Tests 10/01/18 03:25 10/02/18 04:05 Assessment/Plan Assessment/Plan Acute respiratory failure -Pt is doing well off vent -Hep lock IVF -Will need home 02 qualification prior to discharge. Pneumonia with sepsis -merrem -Strong cultures negative influenza negative Anxiety/agitation -D/C precedex -Risperadol and PRN Haldol Acute renal failure - improved -Gentle hydration secondary to CHF Hx of CHF Echo of 09/27/18 showed LVEF 20-25% -grade III diastolic dysfunction, -cardiology following Afib RVR -Currently on Cardizem gtt - titrate to D/C -Will go ahead and start Lopressor and await cardiology recs. PT is doing better will transfer to 4th floor with telemetry. RONNELL COCHRAN DO Oct 02, 2018 05:23
--- NOTE | 2018-10-02 08:14 | Diagnostic Imaging Report ---
INDICATION: Dyspnea Upright portable chest shows cardiomegaly with normal vascularity. The lungs are clear. There is no effusion or pneumothorax. IJ line tip is in the SVC. IMPRESSION: Cardiomegaly with no failure. The heart size is stable compared to prior study from 10/01/2018. Dictated by: Dictated on workstation # [id number]
[2018-10-02] MEDS ORDERED: KCL 20 MEQ TAB (K-DUR) PO NR (08:30)
[2018-10-02] MEDS: lisINopril 5 MG (PRINIVIL) TABLET PO SCH (08:44)
[2018-10-02] MEDS: PANTOPRAZOLE 40 MG (PROTONIX) VIAL IV SCH (08:44)
[2018-10-02] MEDS: APIXABAN 5 MG (ELIQUIS) TABLET PO SCH ×2 (08:45→20:05)
[2018-10-02] MEDS: risperiDONE 0.25 MG (RisperDAL) TAB PO SCH ×2 (08:45→20:05)
[2018-10-02] MEDS: meTOprolol TARTRATE 25 MG (LOPRESSOR) TABLET PO SCH ×2 (08:45→20:05)
--- NOTE | 2018-10-02 12:24 | Progress Note-Hospitalist ---
Progress Note Progress Notes/Assess & Plan Date Seen 10/02/18 Time Seen by Provider: 12:20 Assessment & Plan THE PATIENT CONTINUES TO SHOW IMPROVEMENT. hIS BEEN CLEARED BY dR. Hurtado FOR TRANSFER TO THE FLOOR. He still requires low-flow oxygen. Vital signs are stable. Physical exam: Color is improved. He is more interactive than yesterday. Lungs are distant but clear to auscultation. CV is regular without murmur. Impression: Respiratory failure with required ventilation. 2.improvement such that he is no longer on the ventilator. 3.likely multifactorial lung disease leading to respiratory failure including COPD, evidence of congestive heart failure, and possible pneumonia. 4.nonischemic cardiomyopathy with stable ejection fraction at 20-25 percent. Plan: Transfer to [facility]. Order PT and OT consultations. SAMAN PADILLA MD Oct 02, 2018 12:24
--- NOTE | 2018-10-02 13:31 | Cardiology Progress Note ---
Cardiology SOAP Progress Note Subjective: Feeling much better than yesterday. Objective: I&O/Vital Signs 10/02/18 10/02/18 10/02/18 10/02/18 04:00 04:00 06:24 07:00 Temp 97.2 Pulse 82 89 Resp 16 B/P (MAP) 140/89 (106) Pulse Ox 95 94 O2 Delivery Nasal Cannula Nasal Cannula Nasal Cannula O2 Flow Rate 4.00 4.00 4.00 10/02/18 10/02/18 10/02/18 10/02/18 07:00 08:00 08:38 08:45 Temp 98.5 Pulse 89 97 Resp 14 18 B/P (MAP) 149/81 (103) 159/89 (112) Pulse Ox 88 95 O2 Delivery Nasal Cannula Nasal Cannula Nasal Cannula O2 Flow Rate 4.00 4.00 4.00 10/02/18 10/02/18 10/02/18 10/02/18 09:00 10:00 11:00 12:59 Pulse 90 106 79 Resp 13 17 16 B/P (MAP) 150/78 (102) 156/87 (110) 117/74 (88) Pulse Ox 97 96 95 O2 Delivery Nasal Cannula Nasal Cannula Nasal Cannula Nasal Cannula O2 Flow Rate 4.00 4.00 4.00 4.00 10/02/18 13:03 Temp 97.5 10/02/18 00:00 Intake Total 1600 ml Output Total 850 ml Balance 750 ml Weight (Pounds): 214 Weight (Ounces): 8.0 Weight (Calculated Kilograms): 97.669973 Constitutional: AAO x 3, well-developed, well-nourished Respiratory: No accessory muscle use, No respiratory distress, No chest tender , No chest expansion is symmetric; chest is bilaterally symmetric; No lungs clear to percussion; lungs clear to auscultation (diminished bases bilat); No crackles, No rhonchi, No rales, No stridor, No wheezing, No pleural rub, No other Cardiovascular: No regular rate-rhythm; irregularly irregular; No extra beats, No parasternal heave is noted, No JVD, No edema, No bradycardia, No tachycardia , No point of maximal impulse, No cardiac thrills are palpable; S1 and S2; No gallop/S3, No gallop/S4, No diastolic murmur; systolic murmur (soft ZOE at card base); No friction rub, No click, No other Gastrointestional: No tender; soft; No round, No distended, No pulsatile mass, No organomegaly, No guarding, No rebound, No tenderness, No hernia, No mass; audible bowel sounds; No abnormal bowel sounds, No abdominal bruits, No spleenomegaly, No other Extremities: No normal range of motion, No non-tender, No normal inspection, No pedal edema, No calf tenderness, No normal capillary refill, No pelvis stable , No calf tenderness, No inflammation, No pedal edema, No slow capillary refill ; swelling (mild to mod bilat pitting edema of the legs); No other, No abrasion , No clubbing, No cyanosis, No ecchymosis, No laceration, No no lower extremity edema bilateral, No significant edema, No tenderness, No wound Neurologic/Psychiatric: no motor/sensory deficits, alert, normal mood/affect, oriented x 3, grossly intact Skin: No rash on exposed areas, No ulcerations on exposed areas Results/Procedures: Labs Laboratory Tests 10/02/18 04:05: White Blood Count 6.8, Red Blood Count 4.65, Hemoglobin 14.2, Hematocrit 43, Mean Corpuscular Volume 92, Mean Corpuscular Hemoglobin 31, Mean Corpuscular Hemoglobin Concent 33, Red Cell Distribution Width 14.9H, Platelet Count 127L, Mean Platelet Volume 10.7H, Neutrophils (%) (Auto) 78H, Lymphocytes (%) (Auto) 10L, Monocytes (%) (Auto) 10, Eosinophils (%) (Auto) 2, Basophils (%) (Auto) 0, Neutrophils # (Auto) 5.3, Lymphocytes # (Auto) 0.7L, Monocytes # (Auto) 0.7, Eosinophils # (Auto) 0.1, Basophils # (Auto) 0.0, Sodium Level 140, Potassium Level 3.6, Chloride Level 105, Carbon Dioxide Level 27, Anion Gap 8, Blood Urea Nitrogen 22H, Creatinine 0.86, Estimat Glomerular Filtration Rate > 60, BUN/ Creatinine Ratio 26, Glucose Level 130H, Calcium Level 8.9, Corrected Calcium 9.5, Phosphorus Level 3.3, Magnesium Level 2.4, Total Bilirubin 1.9H, Aspartate Amino Transf (AST/SGOT) 25, Alanine Aminotransferase (ALT/SGPT) 36, Alkaline Phosphatase 81, Total Protein 5.9L, Albumin 3.3, Triglycerides Level 91 Microbiology 09/27/18 Blood Culture - Preliminary, Resulted No growth 09/27/18 Influenza Types A,B Antigen (LADI) - Final, Complete 09/27/18 Urine Culture - Final, Complete NO GROWTH A/P: Assessment/Dx: Assessment: Acute resp failure, multifactorial (see below) Ac systolic CHF due to nonischemic cardiomyopathy. Echo of 09/27/18 showed LVEF 20-25% that is unchanged compared to echo of Aug 2018, grade III diastolic dysfunction, biatrial enlargement, PASP 45 mmHg (unchanged compared to Aug 2018 study) Pneumonia with sepsis and septic shock PAF Card cath of 2013: no significant CAD, LVEF 40-45% Ac renal failure of undetermined etiology, possibly ATN due to hypotension, improving Borderline DM II Tobacco chewing, chronic H/o noncompliance Plan: Plan: * Complex management * HR improved -DC Cardizem, started low dose beta fredy. * Continue lisinopril 5 mg daily. * CVP still 8, therefore no diuretics for now. * Oral K * Monitor labs * Started Eliquis 5 mg twice a day. * LifeVest for primary prevention for sudden cardiac . * Dr. Norton to take over cardiology care from tomorrow. Thank you for your consultation. Please call me if you have any questions. Sarita Nick MD, FACP, FACC, FSCAI, FHRS, CCDS Interventional Cardiology Cardiac Electrophysiology Vascular Medicine and Endovascular Interventions [place] NICK MD Oct 02, 2018 1:31 pm
[2018-10-02] MEDS: MELATONIN 3 MG TABLET PO SCH (20:05)
[2018-10-02] MEDS: HALOPERIDOL 5 MG/ML (HALDOL) AMP IV PRN (20:22)
[2018-10-03] VITALS (7 sets, daily range): BP systolic 122–174; BP diastolic 80–92
[2018-10-03 04:02] LABS: BASOPHILS % (AUTO) 0 % (0-10); EOSINOPHILS # (AUTO) 0.2 10^3/uL (0.0-0.3); EOSINOPHILS % (AUTO) 3 % (0-10); HEMATOCRIT 42 % (40-54); HEMOGLOBIN 13.8 G/DL (13.3-17.7); LYMPHOCYTES # (AUTO) 0.9 X 10^3 (1.0-4.0); LYMPHOCYTES % (AUTO) 13 % (12-44); MEAN CORPUSCULAR HEMOGLOBIN 30 PG (25-34); MEAN CORPUSCULAR HGB CONC 33 G/DL (32-36); MEAN CORPUSCULAR VOLUME 91 FL (80-99); MEAN PLATELET VOLUME 10.8 FL (7.4-10.4); MONOCYTES # (AUTO) 0.7 X 10^3 (0.0-1.0); MONOCYTES % (AUTO) 10 % (0-12); NEUTROPHILS # (AUTO) 5.2 X 10^3 (1.8-7.8); NEUTROPHILS % (AUTO) 74 % (42-75); PLATELET COUNT 138 10^3/uL (130-400); RED BLOOD COUNT 4.64 10^6/uL (4.35-5.85); RED CELL DISTRIBUTION WIDTH 14.6 % (10.0-14.5); WHITE BLOOD COUNT 7.1 10^3/uL (4.3-11.0)
[2018-10-03] MEDS: MEROPENEM 500 MG in NS (IVPB) 100 ML IV SCH (04:02)
[2018-10-03 04:20] LABS: ALANINE AMINOTRANSFERASE 35 U/L (0-55); ALBUMIN 3.2 GM/DL (3.2-4.5); ALKALINE PHOSPHATASE 83 U/L (40-136); BILIRUBIN,TOTAL 1.6 MG/DL (0.1-1.0); BUN/CREATININE RATIO 21; CALCIUM 8.9 MG/DL (8.5-10.1); CARBON DIOXIDE 29 MMOL/L (21-32); CHLORIDE 105 MMOL/L (98-107); CREATININE SERUM 0.94 MG/DL (0.60-1.30); GFR ESTIMATED > 60; GLUCOSE 121 MG/DL (70-105); MAGNESIUM 2.2 MG/DL (1.8-2.4); PHOSPHORUS 3.4 MG/DL (2.3-4.7); SODIUM 141 MMOL/L (135-145); TOTAL PROTEIN 5.5 GM/DL (6.4-8.2)
--- NOTE | 2018-10-03 06:59 | Pulmonary Progress Note ---
Subjective Time Seen by a Provider: 13:07 Subjective/Events-last exam Pt is doing well pulmonary bella. He is still on oxygen. Sepsis Event Evaluation Height, Weight, BMI Height: 6'0.00" Weight: 219lbs. 8.0oz. 99.804560kb; 29.6 BMI Method:Estimated Exam Exam Vital Signs Date Time Temp Pulse Resp B/P (MAP) Pulse Ox O2 Delivery O2 Flow Rate FiO2 10/03/18 04:00 97.9 81 20 125/81 (96) 97 Nasal Cannula 4.00 10/03/18 01:00 81 10/03/18 00:00 97.0 86 20 122/80 (94) 98 Nasal Cannula 4.00 10/02/18 21:00 98 Nasal Cannula 4.00 10/02/18 19:40 96.8 103 20 158/92 (114) 99 Nasal Cannula 4.50 10/02/18 19:33 Nasal Cannula 4.00 10/02/18 19:00 102 10/02/18 16:55 99.5 103 18 110/90 (97) 97 Nasal Cannula 4.00 10/02/18 13:03 97.5 10/02/18 13:00 87 10/02/18 12:59 Nasal Cannula 4.00 10/02/18 11:00 79 16 117/74 (88) 95 Nasal Cannula 4.00 10/02/18 10:00 106 17 156/87 (110) 96 Nasal Cannula 4.00 10/02/18 09:00 90 13 150/78 (102) 97 Nasal Cannula 4.00 10/02/18 08:45 Nasal Cannula 4.00 10/02/18 08:38 98.5 10/02/18 08:00 97 18 159/89 (112) 95 Nasal Cannula 4.00 10/02/18 07:00 89 14 149/81 (103) 88 Nasal Cannula 4.00 10/02/18 07:00 89 I & O 10/03/18 07:00 Intake Total 2200 ml Output Total 1300 ml Balance 900 ml Height & Weight Height: 6'0.00" Weight: 219lbs. 8.0oz. 99.592627ay; 29.6 BMI Method:Estimated General Appearance: No Apparent Distress, WD/WN, Chronically ill, Obese, Other (anxious) HEENT: PERRL/EOMI, Pharynx Normal Neck: Full Range of Motion, Supple Respiratory: Chest Non Tender, Lungs Clear, Normal Breath Sounds, No Accessory Muscle Use, No Respiratory Distress Cardiovascular: No Edema, No Gallop, No JVD, No Murmur, Normal Peripheral Pulses, Irregularly Irregular, Tachycardia Capillary Refill: Less Than 3 Seconds Gastrointestinal: non tender, soft Extremity: Other (minimal pedal edema) Neurologic/Psychiatric: Alert, Oriented x3, No Motor/Sensory Deficits, Normal Mood/Affect Skin: Normal Color, Warm/Dry Lymphatic: No Adenopathy Results Lab Laboratory Tests 10/02/18 04:05 10/03/18 03:50 Assessment/Plan Assessment/Plan Acute respiratory failure - improving -titrate Fi02 as tolerated -Hep lock IVF -Will need home 02 qualification prior to discharge. Pneumonia with sepsis -merrem - D/C -Strong cultures negative influenza negative Anxiety/agitation -Risperadol and PRN Haldol Acute renal failure - improved -Gentle hydration secondary to CHF Hx of CHF Echo of 09/27/18 showed LVEF 20-25% -grade III diastolic dysfunction, -cardiology following Afib RVR -Currently on Cardizem gtt - titrate to D/C -Will go ahead and start Lopressor and await cardiology recs. RONNELL COCHRAN DO Oct 03, 2018 06:59
--- NOTE | 2018-10-03 08:37 | Diagnostic Imaging Report ---
Indication: Shortness of breath Portable chest 3:19 AM Heart size and pulmonary vascularity are both increased. Lungs are clear. There is no effusion or pneumothorax. Impression: Cardiomegaly with pulmonary venous hypertension. The degree of congestion may be slightly worse compared to the previous day. Dictated by: Dictated on workstation # [id number]
--- NOTE | 2018-10-03 08:38 | Progress Note-Cardiology ---
Cardiology SOAP Progress Note Objective: I&O/Vital Signs 10/03/18 10/04/18 10/04/18 10/04/18 23:40 00:29 01:00 03:35 Temp 98.9 98.9 Pulse 110 118 95 Resp 18 20 B/P (MAP) 131/90 (104) 174/92 (119) Pulse Ox 92 91 94 O2 Delivery Room Air Room Air Room Air 10/04/18 00:00 Intake Total 800 ml Balance 800 ml Weight (Pounds): 219 Weight (Ounces): 8.0 Weight (Calculated Kilograms): 99.690435 Constitutional: AAO x 3, well-developed, well-nourished Respiratory: chest is bilaterally symmetric, lungs clear to auscultation ( diminished bases bilat) Cardiovascular: irregularly irregular, S1 and S2, systolic murmur (soft ZOE at card base) Gastrointestional: soft, audible bowel sounds Extremities: swelling (mild to mod bilat pitting edema of the legs) Neurologic/Psychiatric: no motor/sensory deficits, alert, normal mood/affect, oriented x 3, grossly intact Skin: No rash on exposed areas, No ulcerations on exposed areas Results/Procedures: Labs Laboratory Tests 10/04/18 04:10: White Blood Count 11.8H, Red Blood Count 4.90, Hemoglobin 14.6, Hematocrit 43, Mean Corpuscular Volume 88, Mean Corpuscular Hemoglobin 30, Mean Corpuscular Hemoglobin Concent 34, Red Cell Distribution Width 14.7H, Platelet Count 191, Mean Platelet Volume 11.4H, Neutrophils (%) (Auto) 81H, Lymphocytes (%) (Auto) 7L, Monocytes (%) (Auto) 10, Eosinophils (%) (Auto) 2, Basophils (%) (Auto) 0, Neutrophils # (Auto) 9.6H, Lymphocytes # (Auto) 0.9L, Monocytes # (Auto) 1.2H, Eosinophils # (Auto) 0.2, Basophils # (Auto) 0.0, Sodium Level 142, Potassium Level 4.1, Chloride Level 104, Carbon Dioxide Level 26, Anion Gap 12, Blood Urea Nitrogen 21H, Creatinine 0.93, Estimat Glomerular Filtration Rate > 60, BUN /Creatinine Ratio 23, Glucose Level 108H, Calcium Level 9.8, Corrected Calcium 9.9, Phosphorus Level 2.8, Magnesium Level 2.3, Total Bilirubin 2.1H, Aspartate Amino Transf (AST/SGOT) 23, Alanine Aminotransferase (ALT/SGPT) 35, Alkaline Phosphatase 96, Total Protein 6.8, Albumin 3.9, Digoxin Level 0.33L Microbiology 09/27/18 Blood Culture - Final, Complete No growth 09/27/18 Influenza Types A,B Antigen (LADI) - Final, Complete 09/27/18 Urine Culture - Final, Complete NO GROWTH A/P: Assessment: Acute resp failure, multifactorial (see below) Ac systolic CHF due to nonischemic cardiomyopathy. Echo of 09/27/18 showed LVEF 20-25% that is unchanged compared to echo of Aug 2018, grade III diastolic dysfunction, biatrial enlargement, PASP 45 mmHg (unchanged compared to Aug 2018 study) Pneumonia with sepsis and septic shock PAF Card cath of 2013: no significant CAD, LVEF 40-45% Ac renal failure of undetermined etiology, possibly ATN due to hypotension, improving Borderline DM II Tobacco chewing, chronic H/o noncompliance Plan: * Complex management * Monitor lab * BP has improved adjust BB and DANIA (-) as tolerated JUAQUIN RODRIGUEZ Oct 03, 2018 08:37
[2018-10-03] MEDS: risperiDONE 0.25 MG (RisperDAL) TAB PO SCH ×2 (08:57→21:17)
[2018-10-03] MEDS: lisINopril 5 MG (PRINIVIL) TABLET PO SCH (08:57)
[2018-10-03] MEDS: meTOprolol TARTRATE 25 MG (LOPRESSOR) TABLET PO SCH ×2 (08:57→21:17)
[2018-10-03] MEDS: APIXABAN 5 MG (ELIQUIS) TABLET PO SCH ×2 (08:57→21:18)
[2018-10-03] MEDS: PANTOPRAZOLE 40 MG (PROTONIX) VIAL IV SCH (08:58)
--- NOTE | 2018-10-03 09:40 | Physical Therapy Daily Note ---
PT Daily Note-Current Subjective PT awake in room being tended to by nursing when PT arrived. Pt agreed to get up and walk with PT. Pain Numeric Pain Scale: 0-No Pain Location: No Pain Reported Mental Status Patient Orientation: Normal For Age Attachments: Oxygen Transfers Functional [place] Measure 0=Not Assessed/NA 4=Minimal Assistance 1=Total Assistance 5=Supervision or Setup 2=Maximal Assistance 6=Modified [place] 3=Moderate Assistance 7=Complete IndependenceIRFPAI Quality Coding Scale 6 Independent with activity with or without an assistive device 5 Patient requires set up or clean up by helper. Patient completes activity by themselves 4 Supervision or touching assist (CGA). [place] provide cues , steadying assist 3 The helper provides less than half the effort to complete the activity 2 The helper provides more than half the effort to complete the activity 1 Dependent. The helper does all the effort to complete an activity 7 Patient refused to complete or attempt activity 9 The patient did not perform the activity before the current illness or injury 88 Not attempted due to Medical conditions or safety concerns Transfers (B, C, W/C) (FIM): 5 Scootin Rollin Supine to/from Sit: 5 Sit to/from Stand: 5 Weight Bearing Right Lower Extremity: Right Full Weight Bearing Left Lower Extremity: Left Full Weight Bearing Gait Training Gait (FIM): 2 Distance (FIM): 0=302-03 ft Distance: 100' Gait Level of Assist: 4 Gait Persons Needed: 1 Gait Assistive Device: FWW Assessment Pt was able to ambulate for 100' with FWW requiring CGA. Pt frequently missteps throughout ambulation and needs to be monitored closely. Patient did not show any signs of fatigue and reported he felt fine. Patient will be monitored closely during future therapy sessions. PT Workforce Development Vice President Goals Assisted Goals PT Workforce Development Vice President Goals Time Frame: Oct 07, 2018 Transfers (B,C,W/C) (FIM): 7 Gait (FIM): 6 Gait distance (FIM): 3=150 ft Distance: 150' Gait Level of Assist: 6 Gait Assistive Device: FWW PT Plan Problem List Problem List: Activity Tolerance, Functional Strength, Safety, Balance, Gait, Transfer, Bed Mobility, ROM Treatment/Plan Treatment Plan: Continue Plan of Care Treatment Plan: Bed Mobility, Education, Functional Activity Yoli, Functional Strength, Group Therapy, Gait, Safety, Therapeutic Exercise Treatment Duration: Oct 07, 2018 Frequency: 6 times per week Estimated Hrs Per Day: .25 hour per day Patient and/or Family Agrees t: Yes Time/GCodes Time In: 901 Time Out: 910 Total Billed Treatment Time: 9 Total Billed Treatment 1 visit FA - 9' MAN MCKNIGHT PT Oct 03, 2018 09:40
[2018-10-03] MEDS ORDERED: DIGOXIN 0.125 MG (LANOXIN) TAB PO NR (09:45)
[2018-10-03] MEDS ORDERED: FUROSEMIDE 40 MG (LASIX) TAB PO NR (09:45)
[2018-10-03] MEDS ORDERED: SPIRONOLACTONE 25 MG (ALDACTONE) TAB PO NR (09:45)
--- NOTE | 2018-10-03 09:45 | Progress Note-Cardiology ---
Cardiology SOAP Progress Note Subjective: Shortness of breath better, but not resolved No cp or palp or syncope Objective: I&O/Vital Signs 10/03/18 10/03/18 10/03/18 10/03/18 00:00 01:00 04:00 07:00 Temp 97.0 97.9 Pulse 86 81 81 106 Resp 20 20 B/P (MAP) 122/80 (94) 125/81 (96) Pulse Ox 98 97 O2 Delivery Nasal Cannula Nasal Cannula O2 Flow Rate 4.00 4.00 10/03/18 10/03/18 07:47 08:22 Temp 98.9 Pulse 72 Resp 18 B/P (MAP) 150/80 (103) Pulse Ox 97 97 O2 Delivery Nasal Cannula Nasal Cannula O2 Flow Rate 4.50 4.50 10/03/18 00:00 Intake Total 1250 ml Output Total 275 ml Balance 975 ml Weight (Pounds): 219 Weight (Ounces): 8.0 Weight (Calculated Kilograms): 99.998234 Constitutional: AAO x 3, well-developed, well-nourished Respiratory: chest is bilaterally symmetric, lungs clear to auscultation ( diminished bases bilat) Cardiovascular: irregularly irregular, S1 and S2, systolic murmur (soft ZOE at card base) Gastrointestional: soft, audible bowel sounds Extremities: swelling (mild to mod bilat pitting edema of the legs) Neurologic/Psychiatric: no motor/sensory deficits, alert, normal mood/affect, oriented x 3, grossly intact Skin: No rash on exposed areas, No ulcerations on exposed areas Results/Procedures: Labs Laboratory Tests 10/03/18 03:50: White Blood Count 7.1, Red Blood Count 4.64, Hemoglobin 13.8, Hematocrit 42, Mean Corpuscular Volume 91, Mean Corpuscular Hemoglobin 30, Mean Corpuscular Hemoglobin Concent 33, Red Cell Distribution Width 14.6H, Platelet Count 138, Mean Platelet Volume 10.8H, Neutrophils (%) (Auto) 74, Lymphocytes (%) (Auto) 13 , Monocytes (%) (Auto) 10, Eosinophils (%) (Auto) 3, Basophils (%) (Auto) 0, Neutrophils # (Auto) 5.2, Lymphocytes # (Auto) 0.9L, Monocytes # (Auto) 0.7, Eosinophils # (Auto) 0.2, Basophils # (Auto) 0.0, Sodium Level 141, Potassium Level 4.0, Chloride Level 105, Carbon Dioxide Level 29, Anion Gap 7, Blood Urea Nitrogen 20H, Creatinine 0.94, Estimat Glomerular Filtration Rate > 60, BUN/ Creatinine Ratio 21, Glucose Level 121H, Calcium Level 8.9, Corrected Calcium 9.5, Phosphorus Level 3.4, Magnesium Level 2.2, Total Bilirubin 1.6H, Aspartate Amino Transf (AST/SGOT) 21, Alanine Aminotransferase (ALT/SGPT) 35, Alkaline Phosphatase 83, Total Protein 5.5L, Albumin 3.2 Microbiology 09/27/18 Blood Culture - Final, Complete No growth 09/27/18 Influenza Types A,B Antigen (LADI) - Final, Complete 09/27/18 Urine Culture - Final, Complete NO GROWTH Laboratory Tests 10/02/18 04:05 10/03/18 03:50 A/P: Assessment: Acute resp failure, multifactorial (see below) Ac systolic CHF due to nonischemic cardiomyopathy. Echo of 09/27/18 showed LVEF 20-25% that is unchanged compared to echo of Aug 2018, grade III diastolic dysfunction, biatrial enlargement, PASP 45 mmHg (unchanged compared to Aug 2018 study) Pneumonia with sepsis and septic shock, improved PAF, persistent throughout this hospitalization Card cath of 2013: no significant CAD, LVEF 40-45% Ac renal failure of undetermined etiology, possibly ATN due to hypotension, resolved Borderline DM II Tobacco chewing, chronic H/o noncompliance Plan: * Complex management * I had a long discussion with him of his CV issues and our treatment plan * I also discussed his case with Dr Almeida * Plan to treat systolic CHF with Entresto, bb, furosemide, spironolactone and dig * BB and dig to prevent rapid vent response to A Fib * Consider PLACIDO and elec CV. I discussed in detail the rationale, procedure, risks, and benefits with him. He understands and provides informed consent * Life Vest for prophylaxis against SCD * Monitor labs VIDYA VERDE MD FACP [facility] Oct 03, 2018 09:44
--- NOTE | 2018-10-03 09:55 | Progress Note-Hospitalist ---
Subjective HPI/CC On Admission Date Seen by Provider: Oct 03, 2018 Time Seen by Provider: 08:30 The patient is a 62-year-old white male. He is on the ventilator and deeply sedated. History is gleaned from multiple sources. He apparently went to Dr. Alejandro's office this morning and was immediately sent to the emergency room because of his obvious distress. SaO2 was said to be in the 60s at the office. He apparently had been troubled by shortness of breath for a couple of weeks and it had been increasing considerably over the past several days. The findings in the emergency room strongly suggest a mixed etiology. His initial temperature was 100.6 pulse was 134 and BP was 71. Laboratory showed an initial 16.2 white count which in a repeat some 2 hours later was 19,500. Initially there were 76 percent granulocytes and on the second 93 percent. Creatinine was 1.9 at presentation. BNP 1115. Troponin was less than 0.3. Initial blood gas showed a pH of 7.13 PCO2 of 89 PaO2 of 101 on oxygen bicarbonate was 28. Lactic acid was open. Subsequently an echocardiogram has been repeated today which showed an ejection fraction of 20-25 percent and a pulmonary artery pressure of 45 L of mercury which is very similar to a study done previously this year. Subjective/Events-last exam Pt reports feeling better today. Was able to tolerate oxygen being off for a few hours. Objective Exam Vital Signs Vital Signs Date Time Temp Pulse Resp B/P (MAP) Pulse Ox O2 Delivery O2 Flow Rate FiO2 10/03/18 08:22 98.9 72 18 150/80 (103) 97 Nasal Cannula 4.50 09/30/18 10:02 50 Capillary Refill : Less Than 3 Seconds General Appearance: No Apparent Distress, WD/WN Respiratory: Lungs Clear, No Respiratory Distress Cardiovascular: No Murmur, Irregularly Irregular Gastrointestinal: Normal Bowel Sounds, Non Tender, Soft Neurologic/Psychiatric: Alert, Oriented x3 Results/Procedures Lab Laboratory Tests 10/03/18 03:50 Patient resulted labs reviewed. Assessment/Plan Assessment and Plan Assess & Plan/Chief Complaint septic shock Diagnosis/Problems Diagnosis/Problems (1) Atrial fibrillation with rapid ventricular response Status: Acute Assessment & Plan: Plan for cardioversion tomorrow On anticoagulation Dr Norton consulted, appreciate recs Telemetry (2) Cardiomyopathy Status: Chronic Assessment & Plan: EF 20% Relatively unchanged from last month Continue heart failure meds Dr Norton consulted, appreciate recs Qualifiers: Cardiomyopathy type: unspecified Qualified Codes: I42.9 - Cardiomyopathy, unspecified (3) Respiratory failure with hypercapnia Status: Resolved Assessment & Plan: Extubated last week Still on oxygen Titrate as able Qualifiers: Chronicity: acute Qualified Codes: J96.02 - Acute respiratory failure with hypercapnia Resolution Date/Time: 09/30/18 @ 11:36 (4) PANDA (acute kidney injury) Status: Acute Assessment & Plan: Resolved (5) CAP (community acquired pneumonia) Status: Acute Assessment & Plan: Completed antibiotics DCed by Dr Dudley Monitor off abx Qualifiers: Laterality: unspecified laterality Qualified Codes: J18.9 - Pneumonia, unspecified organism (6) Non-compliance Status: Acute Assessment & Plan: Discussed with patient about need to follow up and comply with meds Strongly recommended compliance with Life Vest Clinical Quality Measures DVT/VTE Risk/Contraindication: Risk Factor Score Per Nursin RFS Level Per Nursing on Admit: 4+=Very High DARRON HUGO MD Oct 03, 2018 09:55
--- NOTE | 2018-10-03 15:13 | Occ Therapy Progress Note ---
Therapy Progress Note 5525 Pt declined OT to continue meting with the c d reactor operator. Left theraband in room. Will follow tomorrow. GIFTY ROSE OT Oct 03, 2018 15:13
[2018-10-03] MEDS: MELATONIN 3 MG TABLET PO SCH (21:18)
[2018-10-04] MEDS: HALOPERIDOL 5 MG/ML (HALDOL) AMP IV PRN (00:29)
[2018-10-04 03:35] VITALS: BP 174/92
[2018-10-04 05:04] LABS: BASOPHILS % (AUTO) 0 % (0-10); EOSINOPHILS # (AUTO) 0.2 10^3/uL (0.0-0.3); EOSINOPHILS % (AUTO) 2 % (0-10); HEMATOCRIT 43 % (40-54); HEMOGLOBIN 14.6 G/DL (13.3-17.7); LYMPHOCYTES # (AUTO) 0.9 X 10^3 (1.0-4.0); LYMPHOCYTES % (AUTO) 7 % (12-44); MEAN CORPUSCULAR HEMOGLOBIN 30 PG (25-34); MEAN CORPUSCULAR HGB CONC 34 G/DL (32-36); MEAN CORPUSCULAR VOLUME 88 FL (80-99); MEAN PLATELET VOLUME 11.4 FL (7.4-10.4); MONOCYTES # (AUTO) 1.2 X 10^3 (0.0-1.0); MONOCYTES % (AUTO) 10 % (0-12); NEUTROPHILS # (AUTO) 9.6 X 10^3 (1.8-7.8); NEUTROPHILS % (AUTO) 81 % (42-75); PLATELET COUNT 191 10^3/uL (130-400); RED CELL DISTRIBUTION WIDTH 14.7 % (10.0-14.5); WHITE BLOOD COUNT 11.8 10^3/uL (4.3-11.0)
[2018-10-04 05:30] LABS: ALANINE AMINOTRANSFERASE 35 U/L (0-55); ALBUMIN 3.9 GM/DL (3.2-4.5); ALKALINE PHOSPHATASE 96 U/L (40-136); BILIRUBIN,TOTAL 2.1 MG/DL (0.1-1.0); BUN/CREATININE RATIO 23; CALCIUM 9.8 MG/DL (8.5-10.1); CARBON DIOXIDE 26 MMOL/L (21-32); CHLORIDE 104 MMOL/L (98-107); CREATININE SERUM 0.93 MG/DL (0.60-1.30); GFR ESTIMATED > 60; GLUCOSE 108 MG/DL (70-105); MAGNESIUM 2.3 MG/DL (1.8-2.4); PHOSPHORUS 2.8 MG/DL (2.3-4.7); POTASSIUM 4.1 MMOL/L (3.6-5.0); SODIUM 142 MMOL/L (135-145); TOTAL PROTEIN 6.8 GM/DL (6.4-8.2)
[2018-10-04 05:40] LABS: DIGOXIN 0.33 NG/ML (0.80-2.00)
[2018-10-04] MEDS ORDERED: LIDOCAINE 2% VISCOUS 15 ML UDC PO NR ×2 (06:00→10:30)
--- NOTE | 2018-10-04 06:49 | Diagnostic Imaging Report ---
INDICATION: Dyspnea. COMPARISON: 10/03/2018 FINDINGS: Single frontal radiographic view of the chest was obtained and again demonstrates moderate cardiomegaly and mild prominence of the pulmonary vasculature. There is also mild prominence of the pulmonary interstitium. Overall, aeration has not significantly changed. There is no large effusion or pneumothorax on today's study. Bony structures show no acute abnormalities. IMPRESSION: 1. Persistent cardiomegaly with pulmonary vascular congestion and probable interstitial pulmonary edema. Dictated by: Dictated on workstation # [id number]
[2018-10-04] MEDS ORDERED: PANTOPRAZOLE 40 MG (PROTONIX) TAB PO SCH (07:00)
[2018-10-04 07:54] VITALS: BP 160/98
[2018-10-04] MEDS ORDERED: DIGOXIN 0.25 MG (LANOXIN) TAB PO SCH (09:00)
[2018-10-04] MEDS ORDERED: SPIRONOLACTONE 25 MG (ALDACTONE) TAB PO SCH (09:00)
[2018-10-04] MEDS ORDERED: NS IV 1000 ML 1,000 ML IV ONE ×2 (09:00→10:30)
[2018-10-04] MEDS ORDERED: FUROSEMIDE 40 MG (LASIX) TAB PO SCH (09:00)
[2018-10-04] MEDS ORDERED: SACUBITRIL/VALSARTAN 24/26 MG (ENTRESTO) TABLET PO SCH (09:00)
--- NOTE | 2018-10-04 09:03 | Physical Therapy Daily Note ---
PT Daily Note-Current Subjective Patient awake in chair waiting on physician when PT arrived. Pt agreed to get up and walk with PT. Pain Numeric Pain Scale: 0-No Pain Location: No Pain Reported Mental Status Patient Orientation: Normal For Age Transfers Functional [place] Measure 0=Not Assessed/NA 4=Minimal Assistance 1=Total Assistance 5=Supervision or Setup 2=Maximal Assistance 6=Modified [place] 3=Moderate Assistance 7=Complete IndependenceIRFPAI Quality Coding Scale 6 Independent with activity with or without an assistive device 5 Patient requires set up or clean up by helper. Patient completes activity by themselves 4 Supervision or touching assist (CGA). [place] provide cues , steadying assist 3 The helper provides less than half the effort to complete the activity 2 The helper provides more than half the effort to complete the activity 1 Dependent. The helper does all the effort to complete an activity 7 Patient refused to complete or attempt activity 9 The patient did not perform the activity before the current illness or injury 88 Not attempted due to Medical conditions or safety concerns Transfers (B, C, W/C) (FIM): 7 Sit to/from Stand: 7 Weight Bearing Right Lower Extremity: Right Full Weight Bearing Left Lower Extremity: Left Full Weight Bearing Gait Training Gait (FIM): 7 Distance (FIM): 3=150 ft Distance: 150' Gait Level of Assist: 7 Gait Assistive Device: None Assessment Pt is able to ambulate independently. Patient cautioned to take his time with walking and to get strength and stamina up over the next two weeks. Pt agreed and stated they would be careful over the holiday. Pt informed he can get up on his own and walk by himself from here on out. PT Short Term Goals Short Term Goals Time Frame: Oct 04, 2018 PT Migrant Leader Goals Migrant Leader Goals PT Snf Goals Time Frame: Oct 07, 2018 Transfers (B,C,W/C) (FIM): 7 Gait (FIM): 6 Gait distance (FIM): 3=150 ft Distance: 150' Gait Level of Assist: 6 Gait Assistive Device: FWW PT Plan Treatment/Plan Treatment Plan: Discontinue PT, goals met Treatment Plan: Bed Mobility, Education, Functional Activity Yoli, Functional Strength, Group Therapy, Gait, Safety, Therapeutic Exercise Treatment Duration: Oct 07, 2018 Frequency: 6 times per week Estimated Hrs Per Day: .25 hour per day Patient and/or Family Agrees t: Yes Time/GCodes Time In: 822 Time Out: 830 Total Billed Treatment Time: 8 Total Billed Treatment 1 Visit FA - 8' MAN MCKNIGHT PT Oct 04, 2018 09:03
[2018-10-04] MEDS ORDERED: LIDOCAINE 2% VISCOUS 15 ML UDC ONE (09:40)
[2018-10-04] MEDS ORDERED: MIDAZOLAM 5 MG/5 ML (VERSED) VIAL ONE (09:41)
[2018-10-04] MEDS ORDERED: fentaNYL INJECTION 100 MCG/2 ML AMP ONE (09:41)
[2018-10-04] MEDS ORDERED: proPOfol 200 MG/20 ML (DIPRIVAN) VIAL IV ONE (09:41)
[2018-10-04] MEDS ORDERED: NS IV 1000 ML 1,000 ML ONE (10:06)
[2018-10-04] MEDS ORDERED: ALPRAZolam 0.5 MG (XANAX) TAB PO PRN (10:15)
[2018-10-04 10:16] VITALS: BP 158/111
--- NOTE | 2018-10-04 10:59 | Occ Therapy Progress Note ---
Therapy Progress Note Attempted OT treatment at 1055. Pt unavailable secondary to PLACIDO. Will attempt at later time. YASMANY MARIA OT Oct 04, 2018 10:59
--- NOTE | 2018-10-04 11:16 | Anesthesia-Procedure Note ---
Procedures/Interventions Procedure Start/Stop/Diagnosis Date of Procedure: Oct 04, 2018 Start Time: 10:45 Stop Time: 11:10 PLACIDO/Cardioversion ASA Class: 4 Medications propofol 150 mg IV, versed 2 mg IV Monitors and Equipment: BP Cuff - Right, Continuous EKG, End Tidal CO2, Pulse Oximeter WENDY COLE CRNA Oct 04, 2018 11:16
--- NOTE | 2018-10-04 11:16 | Anesthesia-General Post-Op ---
MAC Patient Condition Mental Status/LOC: Same as Preop Cardiovascular: Satisfactory Nausea/Vomiting: Absent Respiratory: Satisfactory Pain: Controlled Complications: Absent Post Op Complications Complications None Follow Up Care/Instructions Patient Instructions None needed. Anesthesiology Discharge Order Discharge Order Patient is doing well, no complaints, stable vital signs, no apparent adverse anesthesia problems. No complications reported per nursing. WENDY COLE CRNA Oct 04, 2018 11:16
--- NOTE | 2018-10-04 11:27 | Progress Note-Cardiology ---
Cardiology SOAP Progress Note Subjective: No new symptoms Gen malaise Mild to mod shortness of breath with exertion No cp or palp or syncope Objective: I&O/Vital Signs 10/03/18 10/04/18 10/04/18 10/04/18 23:40 00:29 01:00 03:35 Temp 98.9 98.9 Pulse 110 118 95 Resp 18 20 B/P (MAP) 131/90 (104) 174/92 (119) Pulse Ox 92 91 94 O2 Delivery Room Air Room Air Room Air 10/04/18 10/04/18 10/04/18 10/04/18 07:00 07:54 09:00 10:16 Temp 98.4 Pulse 128 62 117 Resp 20 19 B/P (MAP) 160/98 (118) 158/111 (127) Pulse Ox 91 91 97 O2 Delivery Room Air Room Air Nasal Cannula O2 Flow Rate 0.00 2.00 10/04/18 00:00 Intake Total 1220 ml Balance 1220 ml Weight (Pounds): 210 Weight (Ounces): 9.0 Weight (Calculated Kilograms): 95.171420 Constitutional: AAO x 3, well-developed, well-nourished Respiratory: chest is bilaterally symmetric, lungs clear to auscultation ( diminished bases bilat) Cardiovascular: irregularly irregular, S1 and S2, systolic murmur (soft ZOE at card base) Gastrointestional: soft, audible bowel sounds Extremities: swelling (mild to mod bilat pitting edema of the legs) Neurologic/Psychiatric: no motor/sensory deficits, alert, normal mood/affect, oriented x 3, grossly intact Skin: No rash on exposed areas, No ulcerations on exposed areas Results/Procedures: Labs Laboratory Tests 10/04/18 04:10: White Blood Count 11.8H, Red Blood Count 4.90, Hemoglobin 14.6, Hematocrit 43, Mean Corpuscular Volume 88, Mean Corpuscular Hemoglobin 30, Mean Corpuscular Hemoglobin Concent 34, Red Cell Distribution Width 14.7H, Platelet Count 191, Mean Platelet Volume 11.4H, Neutrophils (%) (Auto) 81H, Lymphocytes (%) (Auto) 7L, Monocytes (%) (Auto) 10, Eosinophils (%) (Auto) 2, Basophils (%) (Auto) 0, Neutrophils # (Auto) 9.6H, Lymphocytes # (Auto) 0.9L, Monocytes # (Auto) 1.2H, Eosinophils # (Auto) 0.2, Basophils # (Auto) 0.0, Sodium Level 142, Potassium Level 4.1, Chloride Level 104, Carbon Dioxide Level 26, Anion Gap 12, Blood Urea Nitrogen 21H, Creatinine 0.93, Estimat Glomerular Filtration Rate > 60, BUN /Creatinine Ratio 23, Glucose Level 108H, Calcium Level 9.8, Corrected Calcium 9.9, Phosphorus Level 2.8, Magnesium Level 2.3, Total Bilirubin 2.1H, Aspartate Amino Transf (AST/SGOT) 23, Alanine Aminotransferase (ALT/SGPT) 35, Alkaline Phosphatase 96, Total Protein 6.8, Albumin 3.9, Digoxin Level 0.33L Microbiology 09/27/18 Blood Culture - Final, Complete No growth 09/27/18 Influenza Types A,B Antigen (LADI) - Final, Complete 09/27/18 Urine Culture - Final, Complete NO GROWTH Laboratory Tests 10/03/18 03:50 10/04/18 04:10 A/P: Assessment: Acute resp failure, multifactorial (see below) Ac systolic CHF due to nonischemic cardiomyopathy. Echo of 09/27/18 showed LVEF 20-25% that is unchanged compared to echo of Aug 2018, grade III diastolic dysfunction, biatrial enlargement, PASP 45 mmHg (unchanged compared to Aug 2018 study). PLACIDO of 10/04/18: LVEF 20-25%, global hypokinesis, atrial "smoke" but no evidence of thrombosis, mild TR, mod eccentric MR, trileaflet Ao valve w/o evidence of stenosis Pneumonia with sepsis and septic shock, improved PAF, s/p successful elec CV to NSR on 10/04/18 Card cath of 2013: no significant CAD, LVEF 40-45% Ac renal failure of undetermined etiology, possibly ATN due to hypotension, resolved Borderline DM II Tobacco chewing, chronic H/o noncompliance Plan: * Complex management * PLACIDO and elec CV to NSR today * Continue current regimen * Life Vest for prophylaxis against SCD * Monitor labs VIDYA VERDE MD FACP [facility] Oct 04, 2018 11:26
[2018-10-04 11:41] VITALS: BP 134/110
[2018-10-04] MEDS ORDERED: MIDAZOLAM 2 MG/2 ML (VERSED) VIAL IVP NR (11:45)
--- NOTE | 2018-10-04 11:59 | Progress Note-Hospitalist ---
Subjective HPI/CC On Admission Date Seen by Provider: Oct 04, 2018 Time Seen by Provider: 08:00 The patient is a 62-year-old white male. He is on the ventilator and deeply sedated. History is gleaned from multiple sources. He apparently went to Dr. Reynoso's office this morning and was immediately sent to the emergency room because of his obvious distress. SaO2 was said to be in the 60s at the office. He apparently had been troubled by shortness of breath for a couple of weeks and it had been increasing considerably over the past several days. The findings in the emergency room strongly suggest a mixed etiology. His initial temperature was 100.6 pulse was 134 and BP was 71. Laboratory showed an initial 16.2 white count which in a repeat some 2 hours later was 19,500. Initially there were 76 percent granulocytes and on the second 93 percent. Creatinine was 1.9 at presentation. BNP 1115. Troponin was less than 0.3. Initial blood gas showed a pH of 7.13 PCO2 of 89 PaO2 of 101 on oxygen bicarbonate was 28. Lactic acid was open. Subsequently an echocardiogram has been repeated today which showed an ejection fraction of 20-25 percent and a pulmonary artery pressure of 45 L of mercury which is very similar to a study done previously this year. Subjective/Events-last exam Patient reported feeling short of breath last night without chest discomfort. He has some mild cough nonproductive with orthopnea. He did take a breathing treatment around 10 o'clock p.m. which he felt made things worse and he was unable to sleep much following that. He does have a history of generalized anxiety and does utilize when necessary Xanax at home with no history of overutilization to my knowledge. He is scheduled for cardioversion with persistent atrial fibrillation with rapid ventricular response. He denies night sweats chills or fever. Objective Exam Vital Signs Vital Signs Date Time Temp Pulse Resp B/P (MAP) Pulse Ox O2 Delivery O2 Flow Rate FiO2 10/04/18 11:41 89 17 134/110 (118) 97 Room Air 10/04/18 11:26 2.00 10/04/18 07:54 98.4 09/30/18 10:02 50 Capillary Refill : Less Than 3 Seconds General Appearance: No Apparent Distress, Anxious Neck: Other (No JVD adenopathy or bruits noted.) Respiratory: Chest Non Tender, No Accessory Muscle Use, No Respiratory Distress , Other (Few rales are noted in both bases no wheezing or rhonchi appreciated.) Cardiovascular: No Edema, No Gallop, No JVD, Irregularly Irregular (Heart rate in the 90s at rest), Other (Soft apical murmur nonradiating) Gastrointestinal: Normal Bowel Sounds, No Organomegaly, No Pulsatile Mass, Non Tender, Soft Extremity: Normal Capillary Refill, Normal Inspection, Normal Range of Motion, Non Tender, No Calf Tenderness, No Pedal Edema Results/Procedures Lab Laboratory Tests 10/04/18 04:10 Patient resulted labs reviewed. Assessment/Plan Assessment and Plan Assess & Plan/Chief Complaint 1. Acute on chronic systolic as well as diastolic heart failure still not under ideal control aggravated by atrial fibrillation with rapid ventricular response. As they're still evidence for increased interstitial edema and blood pressures remain mildly moderately elevated around 160 systolic range we'll increase her furosemide 40 mg every morning and around 2 o'clock p.m. daily. 2. Atrial fibrillation with rapid ventricular response aggravating control of number 1 patient undergoing cardioversion although there is high risk for return to A. fib or inability to convert. Patient is aware of this time. Continue anticoagulant therapy. 3. Long-standing hypertension the most likely cause of number 1. 4. Probable pneumonia with sepsis resolved. Will DC beta agonist therapy as it is only likely to increase his heart rate and not likely to lead to improvement in shortness of breath as was the case last night. Clinical Quality Measures DVT/VTE Risk/Contraindication: Risk Factor Score Per Nursin RFS Level Per Nursing on Admit: 4+=Very High REJI REYNOSO MD Oct 04, 2018 11:59
[2018-10-04 12:08] VITALS: BP 150/90
[2018-10-04] MEDS: APIXABAN 5 MG (ELIQUIS) TABLET PO SCH (12:08)
[2018-10-04] MEDS: meTOprolol TARTRATE 25 MG (LOPRESSOR) TABLET PO SCH (12:08)
[2018-10-04] MEDS: risperiDONE 0.25 MG (RisperDAL) TAB PO SCH (12:08)
[2018-10-04] MEDS ORDERED: FURO40TA4 PO ×2 (12:54→13:24)
[2018-10-04] MEDS ORDERED: SACU1TAB PO ×2 (12:54→13:24)
[2018-10-04] MEDS ORDERED: SPIR25TA5 PO ×2 (12:54→13:24)
[2018-10-04] MEDS ORDERED: APIX5TAB PO ×2 (12:54→13:24)
[2018-10-04] MEDS ORDERED: METO-333 PO ×2 (12:54→13:24)
[2018-10-04] MEDS ORDERED: DIGO250T15 PO ×2 (12:54→13:24)
--- NOTE | 2018-10-04 12:56 | Discharge Inst-Simple/Standard ---
Discharge Inst-Standard Discharge Medications New, Converted or Re-Newed RX: Transmitted to Pharmacy Patient Instructions/Follow Up Plan of Care/Instructions/FU: Please continue to take your medications as written. Please follow up with Dr Alejandro next week and Dr Norton as recommended. Activity as Tolerated: Yes Discharge Diet: Low Sodium Diet Return to The Hospital For: Shortness of breath, chest pain, heart racing, swelling, weight gain, if you feel you are getting worse. Planned Outpatient Orders/Ref. Pneu Vac Indicated: Yes DARRON HUGO MD Oct 04, 2018 12:56 pm
--- NOTE | 2018-10-04 13:21 | Pulmonary Progress Note ---
Subjective Time Seen by a Provider: 13:21 Sepsis Event Evaluation Height, Weight, BMI Height: 6'0.00" Weight: 210lbs. 9.0oz. 95.437729aw; 29.6 BMI Method:Estimated Exam Exam Vital Signs Date Time Temp Pulse Resp B/P (MAP) Pulse Ox O2 Delivery O2 Flow Rate FiO2 10/04/18 12:08 99.3 89 20 150/90 (110) 98 Room Air 10/04/18 11:41 89 17 134/110 (118) 97 Room Air 10/04/18 11:26 94 Nasal Cannula 2.00 10/04/18 10:16 117 19 158/111 (127) 97 Nasal Cannula 2.00 10/04/18 09:00 91 Room Air 0.00 10/04/18 07:54 98.4 62 20 160/98 (118) 91 Room Air 10/04/18 07:00 128 10/04/18 03:35 98.9 95 20 174/92 (119) 94 Room Air 10/04/18 01:00 118 10/04/18 00:29 91 Room Air 10/03/18 23:40 98.9 110 18 131/90 (104) 92 Room Air 10/03/18 20:20 Room Air 10/03/18 19:25 99.1 105 20 174/92 (119) 93 Room Air 10/03/18 19:00 122 10/03/18 16:39 98.7 95 20 160/90 (113) 93 Room Air I & O 10/04/18 07:00 Intake Total 1345 ml Balance 1345 ml Height & Weight Height: 6'0.00" Weight: 210lbs. 9.0oz. 95.749954kq; 29.6 BMI Method:Estimated General Appearance: No Apparent Distress, Anxious HEENT: PERRL/EOMI, Pharynx Normal Neck: Other (No JVD adenopathy or bruits noted.) Respiratory: Chest Non Tender, No Accessory Muscle Use, No Respiratory Distress , Other (Few rales are noted in both bases no wheezing or rhonchi appreciated.) Cardiovascular: No Edema, No Gallop, No JVD, Irregularly Irregular (Heart rate in the 90s at rest), Other (Soft apical murmur nonradiating) Capillary Refill: Less Than 3 Seconds Gastrointestinal: non tender, soft Extremity: Normal Capillary Refill, Normal Inspection, Normal Range of Motion, Non Tender, No Calf Tenderness, No Pedal Edema Neurologic/Psychiatric: Alert, Oriented x3, No Motor/Sensory Deficits, Normal Mood/Affect Skin: Normal Color, Warm/Dry Lymphatic: No Adenopathy Results Lab Laboratory Tests 10/03/18 03:50 10/04/18 04:10 Assessment/Plan Assessment/Plan Acute respiratory failure - improving -Sp02 is 98% on RA Anxiety/agitation -Risperadol and PRN Haldol Acute renal failure - improved -Gentle hydration secondary to CHF Hx of CHF Echo of 09/27/18 showed LVEF 20-25% -grade III diastolic dysfunction, -cardiology following Afib RVR -Currently on Cardizem gtt - titrate to D/C -Will go ahead and start Lopressor and await cardiology recs. Possible discharge today. RONNELL COCHRAN DO Oct 04, 2018 13:21
--- NOTE | 2018-10-04 15:21 | Occ Therapy Progress Note ---
Therapy Progress Note Attempted treatment at 1435. Pt sitting up in chair donning shoes. Pt states he is leaving this afternoon. Has no questions or concerns regarding ADLs or home safety. Pt denies needs at this time, states he has been up completing ADLs in room and will be leaving soon. All needs met. 1, visit YASMANY MARIA OT Oct 04, 2018 15:21
[2018-10-04 16:00] VITALS: BP 150/90
--- NOTE | 2018-10-04 20:35 | OPERATIVE REPORT ---
DATE OF SERVICE: 10/04/2018 PREOPERATIVE DIAGNOSIS: Atrial fibrillation. POSTOPERATIVE DIAGNOSIS: Sinus rhythm. PROCEDURE PERFORMED: Transesophageal echocardiography, followed by external electrical cardioversion. INDICATIONS: The patient is a 62-year-old man with nonischemic cardiomyopathy and decompensated congestive heart failure. Congestive heart failure has been treated. He remains in atrial fibrillation with a somewhat rapid ventricular response. Transesophageal echocardiography was carried out after having obtained an informed consent. This shows left ventricular ejection fraction of 20% to 25% with global hypokinesis, mild to moderate mitral regurgitation, mild tricuspid regurgitation. There was no evidence of any intracardiac thrombus. External electrical cardioversion was carried out under general anesthesia. General anesthesia provided by the nurse auto fleet manager. We used a 150-joule biphasic synchronized shock, which restored normal rhythm. He tolerated the procedure well. Job ID: [id number] DocumentID: [id number] Dictated Date: 10/04/2018 11:37:06 Process Improvement Consultant Date: 10/04/2018 20:05:24 Dictated By: VIDYA VERDE MD, MA, FACP, FACC,
[2018-10-05] MEDS ORDERED: FUROSEMIDE 40 MG (LASIX) TAB PO SCH (14:00)
== END 2018-10-04 17:15 | disposition home or self-care (01) | DRG 871 ==
LOC: EDUNIT# 09:49 → ER 09:51 → ICU 11:51 → 4TH 10-02 14:45
PROVIDERS: ADMIT Internal Medicine; ATTEND Family Medicine
PROC: 5A1945Z Respiratory Ventilation, 24-96 Consecutive Hours (ICD-10-PCS; principal; 2018-09-27)
PROC: 5A2204Z Restoration of Cardiac Rhythm, Single (ICD-10-PCS; 2018-10-04)
DX: A41.9 Sepsis, unspecified organism (principal); R65.21 Severe sepsis with septic shock; J96.02 Acute respiratory failure with hypercapnia; J18.9 Pneumonia, unspecified organism; I50.21 Acute systolic (congestive) heart failure; I42.8 Other cardiomyopathies; I48.0 Paroxysmal atrial fibrillation; N17.0 Acute kidney failure with tubular necrosis; I08.1 Rheumatic disorders of both mitral and tricuspid valves; F41.9 Anxiety disorder, unspecified; R45.1 Restlessness and agitation; K57.90 Diverticulosis of intestine, part unspecified, without perforation or abscess without bleeding; F17.220 Nicotine dependence, chewing tobacco, uncomplicated; E87.5 Hyperkalemia; R73.03 Prediabetes; R31.9 Hematuria, unspecified; E87.70 Fluid overload, unspecified; M10.9 Gout, unspecified; E66.9 Obesity, unspecified; Z68.31 Body mass index [BMI] 31.0-31.9, adult; Z91.14 Patient's other noncompliance with medication regimen
CPT/HCPCS: 31500; 36415; 36600; 51702; 71045; 76770; 80048; 80053; 80162; 81000; 82805; 82962; 83605; 83735; 83880; 84100; 84478; 84484; 85007; 85025; 85027; 85610; 85730; 87040; 87070; 87077; 87081; 87088; 87181; 87184; 87205; 87804; 90471; 92960; 93005; 93306; 93312; 93320; 93325; 93970; 94002; 94003; 94640; 94760; 94761; 94799; 96365; 96366; 96367; 96375; 99291; 99292